=== PATIENT | female | born 1935 | race Caucasian/White ===

== ENCOUNTER 2016-10-01 09:56 | Emergency (ER) | payer MEDICARE, BC ==
[~2016-10-01] VITALS: Ht 157.5 cm; Wt 54.5 kg
[~2016-10-01 09:56] MED LIST: ASPI-535 PO; GABA300C PO; HYDR200T5 PO; OMEPRAZOLE; PRED-253 PO; SERT50TA6 PO; [UNRECOGNIZED DRUG - OTHER]
[2016-10-01 10:09] VITALS: Ht 157.5 cm; Wt 54.5 kg
[2016-10-01] MEDS ORDERED: ONDANSETRON (ODT) 4 MG TAB ODT STA (10:22)
--- NOTE | 2016-10-01 10:28 | ERD ---
ER Documentation Chief Complaint Date/Time DATE: 10/01/16 TIME: 10:24 Chief Complaint RT SHOULDER/ARM/HIP PAIN S/P GROUND LEVEL MECHANICAL FALL HPI Patient is an 80-year-old female who states that she has imbalance and dizziness at baseline. She says she was talking to to people and she turned to the left to talk to someone to turn to the right and became off balance and fell. She says she landed on her right side predominantly on her right elbow. She is complaining of right elbow and right shoulder pain as well as some right hip pain. She was able to stand up however on her own. She is right-hand dominant. She denies any head trauma, loss of consciousness, neck pain, back pain, chest pain, shortness of breath, abdominal pain, nausea, or vomiting. ROS All systems reviewed and are negative except as per history of present illness. Medications Home Meds Reported Medications Cholecalciferol* (Vitamin D3*) 1,000 Unit Tablet, 1000 UNIT PO DAILY, TAB 10/01/16 Ascorbic Acid* (Vitamin C*) 500 Mg Capsule.sa, 500 MG PO DAILY, CAP 10/01/16 Timolol Maleate* (Timolol Maleate* Ophth) Unknown Strength Opht, 1 DROP BOTH EYES BID, #1 EA 10/01/16 Bimatoprost* (Lumigan*) 0.01%-2.5 Ml Opht Drops, 1 DROP BOTH EYES HS, EA 10/01/16 Trazodone Hcl* (Trazodone Hcl*) 50 Mg Tablet, 50 MG PO QHS, #30 TAB 10/01/16 Multivit-Min/FA/Lutein/Zeaxant (Icaps Mv Tablet) 1 Each Tablet.dr, 1 EACH PO DAILY 10/01/16 Hydrochlorothiazide* (Hydrochlorothiazide*) 12.5 Mg Tablet, 12.5 MG PO DAILY, # 30 TAB 10/01/16 Prednisone* (Prednisone*) 1 Mg Tablet, 4 MG PO DAILY, TAB 10/01/16 Gabapentin* (Neurontin*) 300 Mg Capsule, 300 MG PO Q6 11/07/11 Discontinued Reported Medications Sertraline Hcl* (Sertraline Hcl*) 50 Mg Tablet, 50 MG PO DAILY 11/07/11 [Prilosec Delay Relea] 20.6 MG No Conflict Check, BID 11/07/11 Aspirin Ec (Aspir 81) 81 Mg Tablet.dr, 81 MG PO DAILY 11/07/11 [Hetz] 12.5 MG No Conflict Check, DAILY 11/07/11 Hydroxychloroquine Sulfate* (Plaquenil*) 200 Mg Tab, 200 MG PO BID 11/07/11 Prednisone (Prednisone) 5 Mg Tablet, 5 MG PO DAILY 11/07/11 Allergies Allergies: Coded Allergies: Sulfa (Sulfonamide Antibiotics) (Verified Allergy, Intermediate, 10/01/16) PMhx/Soc History of Surgery: Yes (BACK SX, RT EYE SURGICAL REPAIR OF INJURY) Anesthesia Reaction: No Hx Neurological Disorder: No Hx Respiratory Disorders: No Hx Cardiac Disorders: No Hx Psychiatric Problems: No Hx Miscellaneous Medical Probl: Yes (ARTHRITIS) Hx Alcohol Use: No Hx Substance Use: No Hx Tobacco Use: No Smoking Status: Never smoker FmHx Differential includes but is not limited to fall secondary to chronic dizziness , skin tear, fracture, sprain, dislocation Laceration Repair by me: Anesthesia: 1% lidocaine locally Location: Right lateral elbow Tendon/Joint/Nerves: No injury The skin that was torn over the right lateral elbow was able to be grossly reapproximated. I used Dermabond to close the wound. Complexity: No subcutaneous sutures/mucosal repair/ edge excision Patient's bleeding was easily controlled in the department and there is no indication of anemia. No evidence of compartment syndrome, neurologic injury, vascular injury, open joint, tendon laceration, or foreign body. Patient is appropriate for outpatient follow up. 48 hour wound check. Scar minimization instructions given. Family History: No diabetes Physical Exam Vitals Vital Signs Date Time Temp Pulse Resp B/P Pulse Ox O2 Delivery O2 Flow Rate FiO2 10/01/16 10:09 98.5 93 16 152/112 95 Physical Exam Const: [] Well-developed well-nourished female sitting on the bed calmly Head: Atraumatic normocephalic Eyes: Normal Conjunctiva ENT: Normal External Ears, Nose and Mouth. Neck: Full range of motion..~ No meningismus. Resp: Clear to auscultation bilaterally Cardio: Regular rate and rhythm, no murmurs Abd: Soft, non tender, non distended. Normal bowel sounds Skin: Skin tear noted over the right lateral portion of the elbow Back: No midline or flank tenderness Ext: Patient reports tenderness to palpation in the right elbow with some decreased range of motion but no obvious deformity or edema noted, patient reports tenderness to palpation in the right shoulder however she has full range of motion with no obvious deformity or edema noted, patient reports mild tenderness to palpation in the right hip without any obvious deformity and she has full range of motion Neur: Awake and alert, oriented 3, GCS of 15 Psych: Normal Mood and Affect Results 24 hrs Current Medications Medications (Trade) Dose Ordered Sig/Alessandro Route PRN Reason Start Time Stop Time Status Last Admin Dose Admin Diphtheria/ Tetanus/Acell Pertussis (Adacel) 0.5 ml ONCE ONCE IM* 10/01/16 10:30 10/01/16 10:31 DC 10/01/16 10:36 Acetaminophen/ Hydrocodone Bitart ([place] (7.5-325)) 2 tab ONCE ONCE PO 10/01/16 10:30 10/01/16 10:31 DC 10/01/16 10:43 Ondansetron HCl (Zofran Odt) 4 mg ONCE STAT ODT 10/01/16 10:22 10/01/16 10:24 DC 10/01/16 10:34 Procedures/MDM Differential includes but is not limited to fall, abrasion, skin tear, sprain, strain, fracture, dislocation X-ray of the right shoulder reveals arthritis without any fracture dislocation X-ray of the right elbow does not reveal any acute fracture dislocation per the radiologist X-ray the right hip does not reveal any acute fracture dislocation per the radiologist 1205: Patient is feeling better. I placed her an arm sling. She appears stable for discharge home. She may follow-up with an orthopedic doctor as an outpatient. She is also been given information on wound care and skin tears. Departure Diagnosis: Primary Impression: Fall Encounter type: initial encounter Qualified Code: W19.XXXA - Fall, initial encounter Additional Impressions: Skin tear of elbow without complication Encounter type: initial encounter Laterality: right Qualified Code: S51.011A - Skin tear of elbow without complication, right, initial encounter Sprain of elbow, right Encounter type: initial encounter Qualified Code: S53.401A - Sprain of elbow , right, initial encounter Strain of shoulder, right Encounter type: initial encounter Qualified Code: S46.911A - Strain of shoulder, right, initial encounter Hip pain, acute Laterality: right Qualified Code: M25.551 - Hip pain, acute, right Dizziness Condition: Good Patient Instructions: Caring for Your Wound, Skin Avulsion, Sprain Elbow, TreatingStrains and Sprains [facility] Additional Instructions: The Dermabond should pill up over the next 3-5 days. After that resume normal wound care with soap and water keeping it clean and dry. Wear the arm sling for comfort. You may be sore for several days but should improve over the next 3-5 days. Return to the emergency department or follow-up with her primary care physician if not improving. I have also given you information in orthopedic clinic that you may follow-up with. LOWELL BAUTISTA Oct 01, 2016 10:28
[2016-10-01] MEDS ORDERED: DIPHTH/TET/ACEL PERTUSS (ADULT) 0.5 ML VIAL IM* ONE (10:30)
[2016-10-01] MEDS ORDERED: HYDROCODONE/APAP (7.5/325) TAB PO ONE (10:30)
[2016-10-01] MEDS ORDERED: HYDR12.58 PO (10:58)
[2016-10-01] MEDS ORDERED: PRED1TAB2 PO (10:58)
[2016-10-01] MEDS ORDERED: MULT1TAB15 PO (10:59)
[2016-10-01] MEDS ORDERED: BIMA2.5D BOTH EYES (10:59)
[2016-10-01] MEDS ORDERED: TRAZ50TA18 PO (10:59)
[2016-10-01] MEDS ORDERED: ASCO500C7 PO (11:03)
[2016-10-01] MEDS ORDERED: CHOL100062 PO (11:03)
[2016-10-01] MEDS ORDERED: TIMO15DR15 BOTH EYES (11:03)
--- NOTE | 2016-10-01 11:43 | RADRPT ---
PROCEDURE: Right hip series CLINICAL INDICATION: Right hip pain. Status post fall. TECHNIQUE: Two views of the right hip are submitted COMPARISON: None FINDINGS: The right hip appears aligned without evidence of fractures, dislocations or osteolytic lesions. Ac etabulum appears intact.. IMPRESSION: Normal RPTAT: VV .Otoniel Mcdonough MD, MD Date Time Electronically viewed and signed by .Otoniel Mcdonough MD, MD on 10/01/2016 11:43 .L/
--- NOTE | 2016-10-01 11:44 | RADRPT ---
PROCEDURE: XR Elbow. CLINICAL INDICATION: Right elbow pain TECHNIQUE: Three views of the right elbow are available for review COMPARISON: None available FINDINGS: The osseous structures, articular spaces, and surrounding soft tissues of the right elbow are intact . No acute fracture or dislocation is seen. No radiopaque foreign body is identified. No fat pad s ail sign is identified to indicate a hemarthrosis. IMPRESSION: 1. Unremarkable right elbow x-ray series. RPTAT: VV .Otoniel Mcdonough MD, MD Date Time Electronically viewed and signed by .Otoniel Mcdonough MD, on 10/01/2016 11:44 .L/
--- NOTE | 2016-10-01 11:45 | RADRPT ---
PROCEDURE: XR Shoulder. CLINICAL INDICATION: Right shoulder pain . TECHNIQUE: Three views of the right shoulder are available for review. COMPARISON: None available FINDINGS: The osseous structures, articular spaces, and surrounding soft tissues of the right shoulder are int act. No acute fracture or dislocation is seen. The glenohumeral joint is unremarkable. There is de generative narrowing of the acromioclavicular joint.. The visualized portions of the right clavicle and upper right rib cage are equally unremarkable. IMPRESSION: 1. Mild osteoarthritis of the acromioclavicular joint. 2. No acute fracture or dislocation is seen. RPTAT: VV .Otoniel Mcdonough MD, MD Date Time Electronically viewed and signed by .Otoniel Mcdonough MD, MD on 10/01/2016 11:45 .L/
[2016-10-01] MEDS ORDERED: ETOD300C26 PO (12:10)
[2016-10-01] MEDS ORDERED: HYDR-906 PO ×2 (12:10→12:15)
[2016-10-01] MEDS ORDERED: ONDA4TAB8 PO ×2 (12:10→12:16)
[2016-10-01 12:22] VITALS: BP 151/73; PULSE 65; RESP 16
[2016-10-01 12:50] VITALS: TEMP 98.2
== END 2016-10-01 12:52 | disposition home or self-care (01) ==
LOC: E/R 09:56
DX: S51.011A Laceration without foreign body of right elbow, initial encounter (principal); S53.402A Unspecified sprain of left elbow, initial encounter; S46.911A Strain of unspecified muscle, fascia and tendon at shoulder and upper arm level, right arm, initial encounter; S79.911A Unspecified injury of right hip, initial encounter; R42 Dizziness and giddiness; W18.39XA Other fall on same level, initial encounter; Y92.9 Unspecified place or not applicable; Z23 Encounter for immunization; Z79.82 Long term (current) use of aspirin
CPT/HCPCS: 73510; 90471; 90715

== ENCOUNTER 2017-05-15 18:16 | Inpatient (IN) | payer MEDICARE, BC ==
[~2017-05-15] VITALS: Ht 152.4 cm; Wt 60.0 kg
[~2017-05-15 18:16] MED LIST changes: +ASCO500C7 PO; -ASPI-535 PO; +BIMA2.5D BOTH EYES; +CHOL100062 PO; +ETOD300C29 PO; +HYDR-906 PO; +HYDR12.58 PO; -HYDR200T5 PO; +MULT1TAB16 PO; -OMEPRAZOLE; +ONDA4TAB8 PO; -PRED-253 PO; +PRED1TAB2 PO; -SERT50TA6 PO; +TIMO15DR15 BOTH EYES; +TRAZ50TA18 PO; -[UNRECOGNIZED DRUG - OTHER]
--- NOTE | 2017-05-15 18:34 | ERD ---
ER Documentation Chief Complaint Chief Complaint BIBA FOR RIGHT WRIST PAIN,S/P TRIPPED AND FALL.NO KO.NO TRAUMA HPI 81-year-old woman brought in by EMS after mechanical fall while walking up the stairs, she states she lost balance and then fell backwards and landed on her right side injuring her right wrist and elbow. She denied head or neck neck injury, no loss of consciousness, no complaints of chest pain or shortness of breath. Patient was placed in a cardboard splint and transported here without further complaints. ROS All systems reviewed and are negative except as per history of present illness. Medications Home Meds Reported Medications [Calcium] No Conflict Check, 1 TAB PO DAILY 05/15/17 Cholecalciferol* (Vitamin D3*) 1,000 Unit Tablet, 1000 UNIT PO DAILY, TAB 10/01/16 Ascorbic Acid* (Vitamin C*) 500 Mg Capsule.sa, 500 MG PO DAILY, CAP 10/01/16 Timolol Maleate* (Timolol Maleate* Ophth) Unknown Strength Opht, 1 DROP BOTH EYES BID, #1 EA 10/01/16 Bimatoprost* (Lumigan*) 0.01%-2.5 Ml Opht Drops, 1 DROP BOTH EYES HS, EA 10/01/16 Trazodone Hcl* (Trazodone Hcl*) 50 Mg Tablet, 50 MG PO QHS, #30 TAB 10/01/16 Multivit-Min/FA/Lutein/Zeaxant (Icaps Mv Tablet) 1 Each Tablet.dr, 1 EACH PO DAILY 10/01/16 Prednisone* (Prednisone*) 1 Mg Tablet, 2 MG PO BID, TAB 10/01/16 Gabapentin* (Neurontin*) 300 Mg Capsule, 600 MG PO BID 11/07/11 Discontinued Reported Medications Hydrochlorothiazide* (Hydrochlorothiazide*) 12.5 Mg Tablet, 12.5 MG PO DAILY, # 30 TAB 10/01/16 Discontinued Scripts Ondansetron Hcl* (Zofran*) 4 Mg Tablet, 4 MG PO Q8H Y for NAUSEA AND/OR VOMITING , #20 TAB 0 Refills Prov:LOWELL BAUTISTA 10/01/16 Hydrocodone/Acetaminophen (Tamiment 5-325 Tablet) 1 Each Tablet, 1 TAB PO Q6H Y for PAIN, #20 TAB 0 Refills Prov:LOWELL BAUTISTA 3/21/17 Ondansetron Hcl* (Zofran*) 4 Mg Tablet, 4 MG PO Q8H Y for NAUSEA AND/OR VOMITING , #20 TAB 0 Refills Prov:LOWELL BAUTISTA 10/01/16 Hydrocodone/Acetaminophen (Tamiment 5-325 Tablet) 1 Each Tablet, 1 TAB PO Q6H Y for PAIN, #20 TAB 0 Refills Prov:LOWELL BAUTISTA 10/01/16 Etodolac (Etodolac) 300 Mg Capsule, 300 MG PO Q8 Y for PAIN, #30 CAP 0 Refills Prov:LOWELL BAUTISTA 10/01/16 Allergies Allergies: Coded Allergies: Sulfa (Sulfonamide Antibiotics) (Verified Allergy, Intermediate, 05/15/17) PMhx/Soc Rheumatic fever in childhood, polymyalgia rheumatica, osteoporosis, macular degeneration, and 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 History of Surgery: Yes (BACK SX, RT EYE SURGICAL REPAIR OF INJURY) Anesthesia Reaction: No Hx Neurological Disorder: No Hx Respiratory Disorders: No Hx Cardiac Disorders: No Hx Psychiatric Problems: No Hx Miscellaneous Medical Probl: Yes (ARTHRITIS) Hx Alcohol Use: No Hx Substance Use: No Hx Tobacco Use: No Physical Exam Vitals Vital Signs Date Time Temp Pulse Resp B/P Pulse Ox O2 Delivery O2 Flow Rate FiO2 05/15/17 21:00 76 16 138/66 100 05/15/17 20:00 82 16 124/89 95 05/15/17 19:00 120 22 125/90 98 05/15/17 18:25 97.7 86 18 117/64 98 Physical Exam GENERAL: Well-developed, well-nourished, well-hydrated, in no apparent distress , looks nontoxic in appearance HEENT: Moist mucous membranes, pink conjunctiva, no cervical spine tenderness or step-off deformities, soft tissue contusion to the right forehead NEURO: Alert and oriented 3, cranial nerves II through XII intact bilaterally, pupils equal round reactive to light, no focal deficits or facial asymmetry, sensation intact distally Strength 5/5 in upper and lower extremities bilaterally CARDIAC: Regular rate and rhythm, no murmurs rubs or gallops LUNGS: Clear bilaterally no wheezing crackles or stridor ABDOMEN: Soft nontender, no guarding, no rigidity, no rebound, no psoas sign no obturator sign. Normoactive bowel sounds SKIN: Warm and dry to touch, soft tissue hematoma to the anterior aspect of the right distal forearm, circular measuring about 4 cm in size, puncture wound to the ulnar lateral aspect of the right wrist consistent with open fracture. EXTREMITIES: Severe bony deformity at the right distal wrist, distal pulses intact and equal bilaterally PSYCH: Normal affect without agitation or irritability Result Diagram: 05/15/17 1857 05/15/171944 Results 24 hrs Laboratory Tests Test 05/15/17 18:57 05/15/17 19:45 White Blood Count 9.510^3/ul Red Blood Count 3.6210^6/ul Hemoglobin 11.3g/dl Hematocrit 35.2% Mean Corpuscular Volume 97.2fl Mean Corpuscular Hemoglobin 31.2pg Mean Corpuscular Hemoglobin Concent 32.1g/dl Red Cell Distribution Width 13.7% Platelet Count 82897^3/UL Mean Platelet Volume 9.8fl Neutrophils % 83.2% Lymphocytes % 9.5% Monocytes % 5.4% Eosinophils % 1.2% Basophils % 0.3% Nucleated Red Blood Cells % 0.0/100WBC Neutrophils # 7.910^3/ul Lymphocytes # 0.910^3/ul Monocytes # 0.510^3/ul Eosinophils # 0.110^3/ul Basophils # 0.010^3/ul Nucleated Red Blood Cells # 0.010^3/ul Sodium Level 142mmol/L Potassium Level 3.4mmol/L Chloride Level 108mmol/L Carbon Dioxide Level 29mmol/L Anion Gap 8 Blood Urea Nitrogen 12mg/dl Creatinine 0.62mg/dl Glucose Level 87mg/dl Calcium Level 8.2mg/dl Total Bilirubin 0.1mg/dl Direct Bilirubin 0.00mg/dl Indirect Bilirubin 0.1mg/dl Aspartate Amino Transf (AST/SGOT) 27IU/L Alanine Aminotransferase (ALT/SGPT) 29IU/L Alkaline Phosphatase 48IU/L Troponin I 0.029ng/ml Total Protein 6.0g/dl Albumin 3.3g/dl Globulin 2.70g/dl Albumin/Globulin Ratio 1.22 Lipase 93U/L Current Medications Medications (Trade) Dose Ordered Sig/Alessandro Route PRN Reason Start Time Stop Time Status Last Admin Dose Admin Sodium Chloride (NS) 500 ml @ 500 mls/hr Q1H STAT IV 05/15/17 18:52 05/15/17 19:51 DC 05/15/17 19:12 Ketorolac Tromethamine (Toradol) 15 mg ONCE STAT IV 05/15/17 18:52 05/15/17 18:55 DC 05/15/17 19:12 Diphtheria/ Tetanus/Acell Pertussis (Adacel) 0.5 ml ONCE ONCE IM* 05/15/17 19:00 05/15/17 19:01 DC 05/15/17 19:13 Lidocaine 20 ml 20 ml ONCE ONCE SC 05/15/17 20:30 05/15/17 20:31 DC Propofol (Diprivan) 100 ml @ 0 mls/hr TITRATE ONCE IV 05/15/17 20:30 05/15/17 20:31 DC Fentanyl (Sublimaze) 50 mcg ONCE ONCE IV 05/15/17 20:30 05/15/17 20:31 DC Procedures/MDM IV line was established patient was placed on gliding pilot instructor rhythm strip revealed a sinus rhythm at about 90 bpm with upright P and T waves. Patient was afebrile EKG performed, read by me revealed a normal sinus rhythm at 93 bpm, normal axis , right bundle branch block with a QRS duration of 128 ms, no concerning ST elevations or depressions noted. I administered Toradol 50 mg IV, 500 cc normal saline IV 1, tetanus toxoid 0.5 mL IM 1. Patient also received ceftriaxone [address] scan of the brain was performed that was negative for acute bleed mass or shift. X-ray right elbow 3V Interpreted by me: Fat Pads: Normal Bones: No fracture Joints: No dislocation Foreign body: None X-ray right wrist 3V Interpreted by me: Scaphoid: Normal Bones: Transverse displaced right distal radius fracture, ulnar styloid fracture Joints: Carporadial dislocation Foreign body: None One AP view of the chest performed, read by me reveals no acute infiltrates, normal mediastinum, sharp costophrenic and cardiac borders, no air under the diaphragm. Otherwise unremarkable chest x-ray. X-ray right shoulder 3V Interpreted by me: Bones: No fracture Joints: No dislocation Foreign body: None X-ray Pelvis 1V Interpreted by me: Bones: No fracture Joints: No dislocation Foreign body: None Procedural Sedation: Pre-assessment performed. See preceding complete history and physical for details. Time out performed. See the written sedation documentation for details. Risk, benefits and alternatives were discussed with the patient. Patient agreed to this conscious sedation. ASA Class: 2 Mallampati Score: Class 2 Medication(s): Fentanyl and propofol Complications: No hypoxic or apneic events Recovered without incident. A minimum of 21 minutes of face to face time was performed including preparation, sedation and recovery time. Reduction by me: Anesthesia: Fentanyl Location: Right wrist Technique: Gentle traction and manipulation Results: [place] of normal anatomic positioning Neurovascularly intact post procedure. Splint Assessment: Neurovascularly intact post splint placement with good fit. Postreduction x-ray of the right wrist was performed, read by me there is better alignment of the right radius fracture, carporadial dislocation has been reduced. Manual reduction in the emergency department was limited because patient's skin is so friable. She also has an open fracture which will require surgical ORIF. I spoke to surgeon on-call Dr. Asher regarding the patient's ED workup and imaging studies, he recommended n.p.o. after midnight and medical clearance for surgical ORIF possibly tomorrow. CBC and electrolytes are normal, liver function tests normal, troponin negative. Patient admitted to [facility]. Departure Diagnosis: Primary Impression: Open wrist fracture Encounter type: initial encounter Laterality: right Qualified Code: S62.101B - Open fracture of right wrist, initial encounter Additional Impressions: Radius/ulna fracture Encounter type: initial encounter Fracture type: open Open fracture type: open type I or II Laterality: right Qualified Code: S52.91XB - Type I or II open fracture of right radius and ulna, initial encounter Scalp contusion Encounter type: initial encounter Qualified Code: S00.03XA - Contusion of scalp, initial encounter Skin abrasion Condition: ALLY Brown MD May 15, 2017 18:34
[2017-05-15] MEDS ORDERED: CALCIUM PO (18:44)
[2017-05-15] MEDS ORDERED: KETOROLAC 15 MG INJ IV STA (18:52)
[2017-05-15] MEDS ORDERED: SOD CHLORIDE 0.9% 500 ML IV STA (18:52)
[2017-05-15] MEDS ORDERED: DIPHTH/TET/ACEL PERTUSS (ADULT) 0.5 ML VIAL IM* ONE (19:00)
--- NOTE | 2017-05-15 20:22 | RADRPT ---
PROCEDURE: XR Chest. CLINICAL INDICATION: r/o fx TECHNIQUE: PA and Lateral views of the chest were obtained. COMPARISON: None. FINDINGS: The cardiomediastinal silhouette is within normal limits. Mild bibasilar subsegmental atelectasis is present. no focal consolidations, pleural effusions, or p neumothorax is seen. A chronic-appearing rib deformity is visualized in the right lower lateral chest wall. There are degenerative changes of the spine and shoulder joints. IMPRESSION: 1. Apparent deformity in the right lower lateral chest wall, likely chronic in nature. However, cor relation with point tenderness is suggested to exclude an acute process. If there is continued high suspicion for acute fracture, cross-sectional imaging may be obtained. RPTAT:AAJJ Physician Mane Date Time Electronically viewed and signed by Mariela Wilkinson Physician on 05/15/2017 20:22 QL/
--- NOTE | 2017-05-15 20:22 | RADRPT ---
PROCEDURE: XR Pelvis. CLINICAL INDICATION: Pelvic pain. Trauma TECHNIQUE: Single AP view of the pelvis was obtained. 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 No acute displaced fracture or dislocation is seen. Diffuse osteopenia is seen. The soft tissue structures are intact. IMPRESSION: No acute displaced fracture or dislocation. RPTAT: HPNM Physician tOto Date Time Electronically viewed and signed by Oscar Bond Physician on 05/15/2017 20:22 /
--- NOTE | 2017-05-15 20:22 | RADRPT ---
PROCEDURE: XR Pelvis. CLINICAL INDICATION: Pelvic pain. Trauma TECHNIQUE: Single AP view of the pelvis was obtained. 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 No acute displaced fracture or dislocation is seen. Diffuse osteopenia is seen. The soft tissue structures are intact. IMPRESSION: No acute displaced fracture or dislocation. RPTAT: HPNM Physician Otto Date Time Electronically viewed and signed by Oscar Bond Physician on 05/15/2017 20:22 /
--- NOTE | 2017-05-15 20:23 | RADRPT ---
PROCEDURE: XR Shoulder. CLINICAL INDICATION: Right shoulder pain. Trauma TECHNIQUE: 2 views of the right shoulder were obtained. COMPARISON: 10/01/2016 FINDINGS: No acute fracture or dislocation is seen. Mild osteoarthritis of the acromioclavicular joint is once again seen. The glenohumeral joint within normal limits. Diffuse osteopenia is seen. The soft tis hill structures are intact. The visualized portions of the right clavicle and chest appear unremarka ble. IMPRESSION: No acute fracture or dislocation. RPTAT: HPNM Physician Otto Date Time Electronically viewed and signed by Physician Otto on 05/15/2017 20:23 /
--- NOTE | 2017-05-15 20:25 | RADRPT ---
PROCEDURE: Right wrist series CLINICAL INDICATION: Right wrist pain. Trauma TECHNIQUE: AP, oblique, and lateral views of the right wrist were obtained. COMPARISON: None FINDINGS: A significant displaced fracture of the distal radius is seen with dorsal angulation. Soft tissue sw elling at the fracture site is seen with soft tissue air. Dislocation of the distal ulna is seen. N o other fracture is seen. The remaining joint spaces are preserved. IMPRESSION: 1. Significant displaced distal radial fracture with dorsal angulation. 2. Distal ulna dislocation. RPTAT: HPNM Physician Otto Date Time Electronically viewed and signed by Physician Otto on 05/15/2017 20:24 /
[2017-05-15] MEDS ORDERED: PROPOFOL 100 ML IV ONE (20:30)
[2017-05-15] MEDS ORDERED: FENTAnyl 50 MCG/ML VIAL IV ONE (20:30)
[2017-05-15] MEDS ORDERED: LIDOCAINE 1% (MDV) 20 ML INJ SC ONE (20:30)
[2017-05-15] MEDS ORDERED: CEFTRIAXONE 1 GM/50 ML (PMX) 50 ML IVPB ONE (21:30)
--- NOTE | 2017-05-15 21:35 | RADRPT ---
PROCEDURE: XR right elbow. CLINICAL INDICATION: Trauma due to a fall. Right elbow pain. TECHNIQUE: Three views. Frontal, lateral, and oblique. COMPARISON: 10/01/2016. FINDINGS: There is no fracture or dislocation. The soft tissues are normal. Articular surfaces are intact. There is no lytic or blastic lesion. There is no radiopaque foreign body. IMPRESSION: 1. Unremarkable images of the right elbow. 2. No change from 10/01/2016. RPTAT: QQ .Job Thomas MD, MD Date Time Electronically viewed and signed by .Job Thomas MD, MD on 05/15/2017 21:35 .R/
--- NOTE | 2017-05-15 21:57 | RADRPT ---
PROCEDURE: CT Brain without contrast. CLINICAL INDICATION: Headache. TECHNIQUE: A CT of the brain without contrast was performed utilizing axial sections from the skul l base through the vertex. The patient was scanned without intravenous contrast enhancement. Sagitta l and coronal reformatted images were obtained using the data from the axial images. Total exam DLP is 720.23 mGy-cm. CTDIvol is 43.68 mGy. One or more of the following dose reduction techniques we re used: Automated exposure control, adjustment of the mA and/or kV according to patient size, use o f iterative reconstruction technique. COMPARISON: None available FINDINGS: There is normal estrella-white matter differentiation. There is enlargement of the ventricles and subarachnoid spaces consistent with atrophy. There is no intracranial hemorrhage or space-occupying lesion. There is no skull fracture or lytic lesion. There is a right frontal scalp hematoma. IMPRESSION: 1. Atrophy. 2. No intracranial hemorrhage. 3. Right frontal scalp hematoma. 4. Otherwise normal noncontrast CT scan of the brain. RPTAT: QQ .Job Thomas MD, Date Time Electronically viewed and signed by .Job Thomas MD, on 05/15/2017 21:57 .R/
[2017-05-15] MEDS ORDERED: ONDANSETRON 4 MG INJ IV PRN (22:00)
[2017-05-15] MEDS ORDERED: NACL 0.9% 3 ML SYG IV SCH (22:00)
[2017-05-15 22:12] VITALS: PULSE 89
--- NOTE | 2017-05-15 22:28 | RADRPT ---
PROCEDURE: XR Right Wrist. CLINICAL INDICATION: Trauma. Right wrist pain. Fracture. Post reduction radiograph. TECHNIQUE: 3 views of the right wrist. Frontal, lateral, and oblique. COMPARISON: Prior study done earlier the same day. FINDINGS: As seen previously, there is a comminuted transverse fracture through the distal metaphysis of the r adius. There is posterior displacement measuring half the width of the shaft. There is no significan t angulation. There is a nondisplaced ulnar styloid fracture. There is diffuse soft tissue swelling. The fracture of the distal radius extends through the distal articular surface with approximately 1 mm step off at this site. There is no lytic or blastic lesion. There is no radiopaque foreign body. IMPRESSION: 1. Fractures of the distal radius and ulna with improved position and alignment when compared with the prior study done earlier the same day. RPTAT: QQ .Job Thomas MD, MD Date Time Electronically viewed and signed by .Job Thomas MD, on 05/15/2017 22:28 .R/
[2017-05-15 22:30] VITALS: Ht 152.4 cm; Wt 60.0 kg
[2017-05-15] MEDS: HYDROCODONE/APAP (5/325) TAB PO PRN (23:11)
[2017-05-15 23:50] VITALS: BP 128/78; RESP 20
[2017-05-15 23:51] VITALS: BP 128/78; RESP 20
[2017-05-16] VITALS (25 sets, daily range): BP systolic 87–149; BP diastolic 48–87; PULSE 70–88; RESP 13–22
[2017-05-16] MEDS: ACETAMINOPHEN 325 MG TAB PO PRN ×2 (02:44→10:18)
[2017-05-16] MEDS: HYDROCODONE/APAP (5/325) TAB PO PRN ×2 (05:45→11:47)
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
[2017-05-16] MEDS: CEFAZOLIN 1 GM/50 ML (PMX) 50 ML IVPB SCH ×4 (06:53→21:50)
[2017-05-16] MEDS ORDERED: EPHEDrine SULFATE 50 MG/5 ML SYG ONE (07:00)
[2017-05-16] MEDS ORDERED: ACETAMINOPHEN 1000 MG/100 ML IVPB ONE (07:00)
[2017-05-16] MEDS ORDERED: TIMOLOL MALEATE BOTH EYES SCH (09:30)
[2017-05-16] MEDS: GABAPENTIN 300 MG CAP PO SCH ×2 (10:16→21:51)
[2017-05-16] MEDS: TIMOLOL 0.5% 5 ML OPH BOTH EYES SCH ×2 (11:46→21:52)
[2017-05-16] MEDS ORDERED: HYDROCORTISONE 100 MG INJ IV ONE (14:00)
--- NOTE | 2017-05-16 14:29 | QN ---
Documentation Comment The patient's 12-lead EKG and 2D-echo was reviewed with the supervising physician. The patient is medically cleared for the surgery with mild-to- moderate risk for untoward medical complications provided her comorbidities including advanced age, essential hypertension, chronic steroid therapy. Given that the benefits of the orthopedic surgical intervention for her right distal radius and ulnar fracture would outweigh the risks form the procedure. Case discussed with Dr. Cunha. VIVIAN CASTILLO NP May 16, 2017 14:29
--- NOTE | 2017-05-16 15:15 | RADRPT ---
Echocardiogram Report Patient Name: CRISTIAN BENITEZ Gender: Female Date: 1935 Study Date: 16-May-2017 Layer Off: Jewel Cruz [facility] Location: [address]A Ref. Physician: JULIÁN MYERS Quality: Adequate Procedures: Transthoracic echocardiogram with complete 2D, M-Mode, and doppler examination. Indications: Abnormal EKG. Pre-op. 2D/M Mode Doppler Measurement Value Normal Ranges Measurement Value Normal Ranges LVIDd 2D 4.2 3.5 - 5.6 cm AV Peak Farzad 1.5 m/sec LVIDs 2D 2.6 2.1 - 4.1 cm AV Peak PG 9.0 mmHg FS 2D 37.6 % LVOT Peak Farzad 1.3 m/sec LVPWd 2D 1.0 0.6 - 1.1 cm LVOT Peak PG 7.0 mmHg IVSd 2D 1.4 0.6 - 1.1 cm MV E Peak Farzad 1.1 m/sec IVS/LVPW 2D 1.3 MV A Peak Farzad 0.9 m/sec EDV 2D 74.1 cm3 MV E/A 1.2 ESV 2D 18.0 cm3 MV Decel Time 183 msec LA Dimen 2D 3.9 2.3 - 4.0 cm MV E/A 1.2 TR Peak Farzad 2.4 m/sec TR Peak PG 23.0 mmHg RVSP 31.0 mmHg Findings Left Ventricle: Normal left ventricular systolic function. Normal left ventricular cavity size. Sigmoid septum. Ejection fraction is visually estimated at 6065 %. Abnormal Diastolic Function. Right Ventricle: Normal right ventricular size. Normal right ventricular systolic function. Left Atrium: The left atrium is normal in size. Right Atrium: The right atrium is normal in size. Mitral Valve: Mild mitral leaflet calcification. Mild mitral annular calcification. Trace mitral regurgitation. Aortic Valve: Normal appearance of the aortic valve. No significant aortic stenosis or insufficiency. Tricuspid Valve: Normal appearance of the tricuspid valve. Estimated peak PA systolic pressure 31 mmHg. There is mild tricuspid regurgitation. Pulmonic Valve: Pulmonic valve not well visualized. There is trace pulmonic regurgitation. Pericardium: Normal pericardium with no significant pericardial effusion. Aorta: Normal aortic root. IVC: Normal size with poor respiratory collapse consistent with elevated right atrial pressure. Conclusions 1.Normal left ventricular systolic function. Normal left ventricular cavity size. Sigmoid septum. Ejection fraction is visually estimated at 60-65 %. Abnormal Diastolic Function. 2.Mild mitral leaflet calcification. Mild mitral annular calcification. Trace mitral regurgitation. 3.Normal appearance of the tricuspid valve. Estimated peak PA systolic pressure 31 mmHg. There is mild tricuspid regurgitation. 4.Pulmonic valve not well visualized. There is trace pulmonic regurgitation. Electronically Signed By: Gui Lagunas 16-May-2017 15:14:24 -0700 Patient Name: CRISTIAN BENITEZ Study Date: 16-May-2017 [id number]
--- NOTE | 2017-05-16 15:15 | RADRPT ---
Echocardiogram Report Patient Name: CRISTIAN BENITEZ Gender: Female Date: 1935 Study Date: 16-May-2017 Carburetor Repairer: Jewel Cruz [facility] Location: [address] Ref. Physician: JULIÁN MYERS Quality: Adequate Procedures: Transthoracic echocardiogram with complete 2D, M-Mode, and doppler examination. Indications: Abnormal EKG. Pre-op. 2D/M Mode Doppler Measurement Value Normal Ranges Measurement Value Normal Ranges LVIDd 2D 4.2 3.5 - 5.6 cm AV Peak Farzad 1.5 m/sec LVIDs 2D 2.6 2.1 - 4.1 cm AV Peak PG 9.0 mmHg FS 2D 37.6 % LVOT Peak Farzad 1.3 m/sec LVPWd 2D 1.0 0.6 - 1.1 cm LVOT Peak PG 7.0 mmHg IVSd 2D 1.4 0.6 - 1.1 cm MV E Peak Farzad 1.1 m/sec IVS/LVPW 2D 1.3 MV A Peak Farzad 0.9 m/sec EDV 2D 74.1 cm3 MV E/A 1.2 ESV 2D 18.0 cm3 MV Decel Time 183 msec LA Dimen 2D 3.9 2.3 - 4.0 cm MV E/A 1.2 TR Peak Farzad 2.4 m/sec TR Peak PG 23.0 mmHg RVSP 31.0 mmHg Findings Left Ventricle: Normal left ventricular systolic function. Normal left ventricular cavity size. Sigmoid septum. Ejection fraction is visually estimated at 6065 %. Abnormal Diastolic Function. Right Ventricle: Normal right ventricular size. Normal right ventricular systolic function. Left Atrium: The left atrium is normal in size. Right Atrium: The right atrium is normal in size. Mitral Valve: Mild mitral leaflet calcification. Mild mitral annular calcification. Trace mitral regurgitation. Aortic Valve: Normal appearance of the aortic valve. No significant aortic stenosis or insufficiency. Tricuspid Valve: Normal appearance of the tricuspid valve. Estimated peak PA systolic pressure 31 mmHg. There is mild tricuspid regurgitation. Pulmonic Valve: Pulmonic valve not well visualized. There is trace pulmonic regurgitation. Pericardium: Normal pericardium with no significant pericardial effusion. Aorta: Normal aortic root. IVC: Normal size with poor respiratory collapse consistent with elevated right atrial pressure. Conclusions 1.Normal left ventricular systolic function. Normal left ventricular cavity size. Sigmoid septum. Ejection fraction is visually estimated at 60-65 %. Abnormal Diastolic Function. 2.Mild mitral leaflet calcification. Mild mitral annular calcification. Trace mitral regurgitation. 3.Normal appearance of the tricuspid valve. Estimated peak PA systolic pressure 31 mmHg. There is mild tricuspid regurgitation. 4.Pulmonic valve not well visualized. There is trace pulmonic regurgitation. Electronically Signed By: Gui Lagunas 16-May-2017 15:14:24 -0700 Patient Name: CRISTIAN BENITEZ Study Date: 16-May-2017 [id number]
--- NOTE | 2017-05-16 15:15 | RADRPT ---
Echocardiogram Report Patient Name: CRISTIAN BENITEZ Gender: Female Date: 1935 Study Date: 16-May-2017 Icebox Worker: Jewel Cruz [facility] Location: [address] Ref. Physician: JULIÁN MYERS Quality: Adequate Procedures: Transthoracic echocardiogram with complete 2D, M-Mode, and doppler examination. Indications: Abnormal EKG. Pre-op. 2D/M Mode Doppler Measurement Value Normal Ranges Measurement Value Normal Ranges LVIDd 2D 4.2 3.5 - 5.6 cm AV Peak Farzad 1.5 m/sec LVIDs 2D 2.6 2.1 - 4.1 cm AV Peak PG 9.0 mmHg FS 2D 37.6 % LVOT Peak Farzad 1.3 m/sec LVPWd 2D 1.0 0.6 - 1.1 cm LVOT Peak PG 7.0 mmHg IVSd 2D 1.4 0.6 - 1.1 cm MV E Peak Farzad 1.1 m/sec IVS/LVPW 2D 1.3 MV A Peak Farzad 0.9 m/sec EDV 2D 74.1 cm3 MV E/A 1.2 ESV 2D 18.0 cm3 MV Decel Time 183 msec LA Dimen 2D 3.9 2.3 - 4.0 cm MV E/A 1.2 TR Peak Farzad 2.4 m/sec TR Peak PG 23.0 mmHg RVSP 31.0 mmHg Findings Left Ventricle: Normal left ventricular systolic function. Normal left ventricular cavity size. Sigmoid septum. Ejection fraction is visually estimated at 6065 %. Abnormal Diastolic Function. Right Ventricle: Normal right ventricular size. Normal right ventricular systolic function. Left Atrium: The left atrium is normal in size. Right Atrium: The right atrium is normal in size. Mitral Valve: Mild mitral leaflet calcification. Mild mitral annular calcification. Trace mitral regurgitation. Aortic Valve: Normal appearance of the aortic valve. No significant aortic stenosis or insufficiency. Tricuspid Valve: Normal appearance of the tricuspid valve. Estimated peak PA systolic pressure 31 mmHg. There is mild tricuspid regurgitation. Pulmonic Valve: Pulmonic valve not well visualized. There is trace pulmonic regurgitation. Pericardium: Normal pericardium with no significant pericardial effusion. Aorta: Normal aortic root. IVC: Normal size with poor respiratory collapse consistent with elevated right atrial pressure. Conclusions 1.Normal left ventricular systolic function. Normal left ventricular cavity size. Sigmoid septum. Ejection fraction is visually estimated at 60-65 %. Abnormal Diastolic Function. 2.Mild mitral leaflet calcification. Mild mitral annular calcification. Trace mitral regurgitation. 3.Normal appearance of the tricuspid valve. Estimated peak PA systolic pressure 31 mmHg. There is mild tricuspid regurgitation. 4.Pulmonic valve not well visualized. There is trace pulmonic regurgitation. Electronically Signed By: Gui Lagunas 16-May-2017 15:14:24 -0700 Patient Name: CRISTIAN BENITEZ Study Date: 16-May-2017 [id number]
--- NOTE | 2017-05-16 15:24 | HPN ---
Date/Time of Note Date/Time of Note DATE: 05/16/17 TIME: 15:23 Interval H&P Admission Note Pt. seen H&P reviewed: No system changes OZ PRUITT MD May 16, 2017 15:24
--- NOTE | 2017-05-16 15:59 | QN ---
Documentation Comment Patient at this time is without cardiac contraindication to proceeding to OR on current medications without further noninvasive evaluation at moderate risk. Post-operatively would check a 12 lead ECG and watch closely for signs/symptoms of CV complications including but not limited to the onset of chest pain, sob, uncontrolled cardiac arrythmias, or congestive heart failure. MICH WOODALL May 16, 2017 15:59
[2017-05-16] MEDS ORDERED: PROPOFOL 20 ML ONE (16:12)
[2017-05-16] MEDS ORDERED: FENTAnyl 50 MCG/ML VIAL ONE (16:12)
[2017-05-16] MEDS ORDERED: ROPIVACAINE 0.5 % 30 ML VIAL ONE (16:13)
[2017-05-16] MEDS ORDERED: POLYMYXIN/BACITRACIN 1L IRRIG ONE (16:20)
[2017-05-16] MEDS ORDERED: BACITRACIN 50000 UNITS INJ ONE (16:22)
[2017-05-16] MEDS ORDERED: PHENYLephrine (100 MCG/ML) 5ML SYG ONE (16:37)
[2017-05-16] MEDS ORDERED: ONDANSETRON 4 MG INJ ONE (17:10)
[2017-05-16] MEDS ORDERED: HYDROCORTISONE 100 MG INJ ONE (17:10)
[2017-05-16] MEDS ORDERED: METOCLOPRAMIDE 10 MG INJ ONE (17:10)
[2017-05-16] MEDS ORDERED: DEXAMETHASONE 4 MG/ML 1 ML INJ ONE (17:10)
[2017-05-16] MEDS ORDERED: morphine (1 MG/ML) 10ML SYRINGE IV PRN ×3 (18:00)
[2017-05-16] MEDS ORDERED: ONDANSETRON 4 MG INJ IV PRN (18:00)
[2017-05-16] MEDS ORDERED: EPHEDrine SULFATE 50 MG/5 ML SYG IV PRN (18:00)
[2017-05-16] MEDS ORDERED: FENTAnyl 50 MCG/ML VIAL IV PRN ×3 (18:00)
[2017-05-16] MEDS ORDERED: MEPERIDINE 25 MG INJ IV PRN (18:00)
[2017-05-16] MEDS ORDERED: DIPHENHYDRAMINE 50 MG INJ IV PRN (18:00)
[2017-05-16] MEDS ORDERED: HYDROmorphONE (0.2 MG/ML) 10ML SYG IV PRN ×2 (18:00)
[2017-05-16] MEDS ORDERED: LABETALOL HCL 20MG INJ IV PRN (18:00)
[2017-05-16] MEDS ORDERED: hydrALAzine 20 MG INJ IV PRN (18:00)
[2017-05-16] MEDS ORDERED: NACL 0.9% 3 ML SYG IV SCH (18:30)
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
--- NOTE | 2017-05-16 18:39 | SIPON ---
Date/Time of Note Date/Time of Note DATE: 05/16/17 TIME: 18:29 Operative Report Preoperative Diagnosis colle's fracture comminuted and displaced, technically open with out and in puncture wound,Rt, wrist. Postoperative Diagnosis same as preop Operation/Procedure Performed open irrigation debridment of the open wound. manipulative reduction and pinfixation. cast immobilization. Surgeon see signature line assistant press operator offset none Anesthesia: general Estimated blood loss: minimal Transfusion Required none Specimen none Grafts/Implants k wiresx2 Complications none OZ PRUITT MD May 16, 2017 18:39
[2017-05-16] MEDS ORDERED: morphine 2 MG INJ IV PRN (19:00)
[2017-05-16] MEDS ORDERED: predniSONE 1 MG TAB PO SCH (21:00)
[2017-05-16] MEDS ORDERED: BIMATOPROST 0.01% 2.5 ML BTL BOTH EYES SCH (21:00)
--- NOTE | 2017-05-16 21:43 | OPR ---
DATE OF OPERATION: 05/16/2017 Was severely comminuted. Full Colles fracture of the right wrist with this route and in the puncture wound. Severely comminuted and displaced. PREOPERATIVE DIAGNOSIS: Severely comminuted and displaced Colles' fracture of the right wrist with out and in puncture wound. POSTOPERATIVE DIAGNOSIS: Severely comminuted and displaced Colles' fracture of the right wrist with out and in puncture wound. OPERATION PERFORMED: 1. Open irrigation and debridement of the wound. 2. Manipulative reduction under general anesthesia with pin fixation. 3. Immobilization of the right wrist and forearm in a short arm cast. ANESTHESIA: General anesthesia combined with the regional block. SURGEON: Sam Asher MD PROCEDURE AND FINDINGS: Under anesthesia, the patient was placed in supine position upon the operating table. The preliminary manipulative reduction was carried out with manipulation, and the reduction was maintained by hanging the right upper extremity from IV pole using Macedonian finger trap. At this point, prep and drape was carried out. Inspection at this time revealed that there was a small puncture wound along with some skin abrasions. After confirming acceptable alignment, this alignment was stabilized with 2 percutaneous pin fixation. After confirming satisfactory alignment, and after irrigation and debridement of the wound, proper dressings were applied, and then the entire right forearm and wrist was immobilized in a short-arm cast. The patient tolerated the entire procedure very well and was sent to the recovery room in good condition. Dictated By: In Judi Asher MD /tato/jun /Document#: [id number]
[2017-05-16] MEDS: HYDROCORTISONE 100 MG INJ IV SCH (21:51)
[2017-05-16] MEDS: traZODone 50 MG TAB PO SCH (21:51)
[2017-05-16] MEDS: LATANOPROST 0.005% 2.5 ML OPH BOTH EYES SCH (21:51)
[2017-05-16] MEDS ORDERED: HYDROCORTISONE 100 MG INJ IV SCH (22:00)
--- NOTE | 2017-05-16 23:19 | RADRPT ---
PROCEDURE: XR Wrist. CLINICAL INDICATION: Postoperative examination.. TECHNIQUE: 2 views of the right wrist. COMPARISON: 05/15/2017. FINDINGS: Cast material obscures fine osseous details. The patient is status post percutaneous pin fixation of a distal radial fracture. Osseous alignment is not significantly changed since the prior examinatio n. There is also an ulnar styloid fracture. IMPRESSION: 1. Status post pin fixation of a distal radial fracture. RPTAT: HTAR .Basilio York MD, MD Date Time Electronically viewed and signed by .Basilio York MD, on 05/16/2017 23:19 .R/
--- NOTE | 2017-05-16 23:21 | RADRPT ---
PROCEDURE: Intraoperative fluoroscopy CLINICAL INDICATION: Fracture. TECHNIQUE: 8 fluoroscopic images of the right wrist were obtained by the operating surgeon. Total fluoroscopic time: 67.4 seconds COMPARISON: 05/15/2017. FINDINGS: The images demonstrate pin fixation of a distal radial fracture. An ulnar styloid fracture is also n oted. IMPRESSION: 1. Status post pin fixation of a distal radial fracture. RPTAT: HTAR .Basilio York MD, MD Date Time Electronically viewed and signed by .Basilio York MD, on 05/16/2017 23:20 .R/
[2017-05-17] VITALS (12 sets, daily range): BP systolic 110–143; BP diastolic 53–77; PULSE 72–91; RESP 17–18
[2017-05-17] MEDS: CEFAZOLIN 1 GM/50 ML (PMX) 50 ML IVPB SCH ×4 (01:19→14:01)
--- NOTE | 2017-05-17 05:19 | CONS ---
DATE OF ADMISSION: 05/15/2017 DATE OF CONSULTATION: 05/16/2017 CARDIOLOGY CONSULTATION REASON FOR CONSULTATION: Preoperative evaluation. REQUESTING PHYSICIAN: Dr. Zhu from the hospitalist service. HISTORY OF PRESENT ILLNESS: Ms. Agarwal is an 81-year-old female with history of hypertension, macu lar degeneration, hiatal hernia, and prior mechanical falls who states that she was playing with her new puppy and subsequently suffered a mechanical fall. The patient denied a prodrome of chest pain , shortness of breath, dizziness; states she kind of lost her spatial orientation due to loss of vis ion. The patient had subsequently landed on her right side with subsequent pain in her arm and head . Upon arrival in the emergency department, temperature 97.7, blood pressure 117/64, pulse 86, resp iratory rate 18, saturating 98%. The patient's labs revealed a sodium 142, potassium 3.4, creatinin e 0.6, BUN 12. White blood cell count 9.5, hemoglobin 11.3, platelet count 221. The patient underw ent a chest x-ray revealing apparent deformity in the right lower lateral chest wall; a wrist x-ray revealing significant displacement of the distal radial fracture with dorsal angulation; a shoulder x-ray revealing no acute fracture or dislocation; a pelvic x-ray revealing no acute displaced fractu re or dislocation; an elbow x-ray revealing unremarkable images of the right elbow, and a head CT th at revealed atrophy, no intracranial hemorrhage, right frontal scalp hematoma. The patient's electrocardiogram revealed sinus rhythm at a rate of 93 with frequent PACs, possible r uns of short SVT and right bundle branch block with secondary repolarization abnormalities and nonsp ecific ST and T-wave abnormalities diffusely. The patient was subsequently admitted to the floor. Since admit to floor, the patient continues to complain of pain in her wrist. Denies chest pain or shortness of breath. The patient has had some significant labile blood pressures, as low as 87 and as high as 125, and most recently pulses have been in the 60s and 70s with frequent PACs. PAST MEDICAL HISTORY: As above in HPI with the patient additionally stating that she has a history of polymyalgia rheumatica and rheumatoid arthritis and takes steroids at baseline. MEDICATIONS CURRENTLY IN HOSPITAL: 1. Vitamin D. 2. Solu-Cortef 50 mg IV q.8. 3. Trazodone 50 mg at bedtime. 4. Xalatan eyedrops. 5. Timolol eyedrops. 6. Gabapentin 600 mg b.i.d. 7. Ancef. 8. Tylenol. ALLERGIES: SULFA. SOCIAL HISTORY: No tobacco, ETOH, or illicit drug use. FAMILY HISTORY: No history of sudden cardiac or early CAD. REVIEW OF SYSTEMS: As above in HPI. CONSTITUTIONAL: No fevers, chills. PULMONARY: No current shortness of breath. CARDIOVASCULAR: No current chest pain. Positive PACs. GASTROINTESTINAL: No vomiting. GENITOURINARY: No hematuria. MUSCULOSKELETAL: Wrist fracture. PSYCHIATRIC: No documented psych history. PHYSICAL EXAMINATION: VITAL SIGNS: Temperature of 97.6, blood pressure 110/53, pulse 69, respiratory rate 18, sat 97%. GENERAL: The patient is alert, awake and complaining of wrist pain. NECK: JVP approximately 8 to 9 cm water. CHEST: Fair movement throughout with mildly decreased breath sounds at bases bilaterally. HEART: Regular rate and rhythm. Normal S1, S2; I/ systolic murmur, frequent PACs. ABDOMEN: Positive bowel sounds, soft. EXTREMITIES: Right arm in sling 1+ pulses bilaterally. No lower extremity edema. HEAD: Additionally head with ecchymosis near the right eye. LABORATORY DATA: As above in HPI, with most recent from today, white count 8.5, hemoglobin 11.0, pl atelet count 225. Sodium 141, potassium 3.7, creatinine of 0.7, BUN of 14, AST 29, ALT 27. LDL 50, HDL 55. INR 0.98. IMAGING STUDIES: As above in HPI with a wrist x-ray from today revealing fracture of the distal rad ius and ulna with improved position and alignment when compared with prior study done earlier the . ECG: As above in HPI. No further electrocardiograms for my review at this time. A 2D echo interpreted by myself today reveals a preserved left ventricular ejection fraction of 60% to 65% with mild mitral and tricuspid regurgitation and left ventricular diastolic dysfunction. IMPRESSION: 1. Preoperative evaluation prior to the patient undergoing a wrist open reduction, internal fixatio n with normal EF by echo, negative troponins, intermediate clinical predictors, going for moderate-r isk surgery. Thus, at this time, the patient is without cardiac contraindication to proceeding to t he OR on current medications at moderate risk. 2. Abnormal electrocardiogram with right bundle branch block. 3. PACs, frequent, and question SVT. 4. Hypertension, labile. 5. Status post fall, mechanical by description. 6. Rheumatoid arthritis, on baseline steroids, now on stress dose steroids. 7. Polymyalgia rheumatica. 8. Macular degeneration. 9. Anemia. RECOMMENDATIONS: 1. At this time, would maintain patient on telemetry monitoring to follow rhythm and rate control c losely. 2. Would consider initiation of beta blockade, but will hold at this time given patient's somewhat labile and marginal blood pressures. 3. Check a TSH to be sure that subclinical hyperthyroidism is not contributing to the patient's matteo ts of PACs and possible short SVTs. 4. Would continue to check serial EKGs and if possible would send an additional troponin prior to s urgery to the patient has not had any recent coronary syndromes, although at this time the pat ient has no signs of acute coronary syndrome and is chest pain-free. 5. Would check a postop 12-lead EKG to assess for any postoperative changes and watch closely for s igns and symptoms of cardiovascular complications including but not limited to the onset of chest pa in, shortness of breath, congestive heart failure, uncontrolled cardiac arrhythmias. Dictated By: MICH LUZ/NIKO Conf#: [id number] DID#: [id number] CC: KANDY RIOS MD; JOSETTE PRUITT MD; Darrell ;*EndCC*
[2017-05-17] MEDS: HYDROCORTISONE 100 MG INJ IV SCH ×3 (05:59→22:01)
[2017-05-17] MEDS: HYDROCODONE/APAP (5/325) TAB PO PRN ×3 (07:42→20:42)
[2017-05-17] MEDS: GABAPENTIN 300 MG CAP PO SCH ×2 (08:46→20:41)
[2017-05-17] MEDS: CHOLECALCIFEROL 1,000 UNIT TAB PO SCH (08:46)
[2017-05-17] MEDS: TIMOLOL 0.5% 5 ML OPH BOTH EYES SCH ×2 (08:47→20:40)
--- NOTE | 2017-05-17 11:44 | PN ---
Date/Time of Note Date/Time of Note DATE: 05/17/17 TIME: 11:39 Assessment/Plan VTE Prophylaxis VTE Prophylaxis Intervention: SCD's (B/L SCDs) Lines/Catheters IV [facility] Urinary Cath still in place: No Assessment/Plan Chief Complaint/Hosp Course 1. Colles' fracture of the right wrist, severely comminuted and displaced. Status post open irrigation and debridement with manipulative reduction under general anesthesia with pin fixation along with immobilization of the right wrist and forearm in a short arm cast on 05/16/2017. Continue pain management. Continue physical therapy. 2. Polymyalgia rheumatica. The patient was on long-term steroids. Therefore, the patient was started on high-dose steroids prior to surgery to prevent any adrenal crisis. This will be tapered down. 3. Amblyopia of the right eye with history of macular degeneration. Continue eyedrops. Continue fall precautions. 4. Normocytic, normochromic anemia. Etiology unclear. Will obtain an iron panel. 5. History of essential hypertension with elevated blood pressure readings. Off antihypertensives. We will monitor the blood pressure readings closely. 6. Fluids, electrolytes, and nutrition. Regular diet. 7. DVT prophylaxis. As per orthopedic surgery. 8. Gastrointestinal prophylaxis. Histamine 2 receptor blockers because of underlying IV steroid use. 9. Plan. Continue pain control. Taper down steroids. Obtain an iron panel. Await further recommendations from orthopedic surgery. Case discussed with Dr. Cunha. Problems: Subjective 24 Hr Interval Summary Free Text/Dictation Right forearm pain well controlled. Exam/Review of Systems Vital Signs Vitals Vital Signs Date Time Temp Pulse Resp B/P Pulse Ox O2 Delivery O2 Flow Rate FiO2 05/17/17 08:37 76 05/17/17 07:45 97.8 17 143/70 96 05/16/17 20:30 Nasal Cannula 1.0 Intake and Output 05/16/17 05/16/17 05/17/17 15:00 23:00 07:00 Intake Total 553 ml 570 ml 120 ml Output Total 5 ml Balance 553 ml 565 ml 120 ml Exam General: Adequately build 81 year-old female sitting in a chair in no apparent distress. HEENT: Normocephalic. Ecchymosis on the supraorbital area., atraumatic. Eyes: Anicteric sclerae, conjunctivae clear. ENT: Nasal septum midline, oral mucosa moist. Neck supple, no JVD noticed. Respiratory: Bilaterally clear breath sounds. No use of accessory muscles of respiration. No adventitious breath sounds. Cardiovascular: S1, S2 heard. No murmurs or gallops. Abdomen: Soft, nontender, and nondistended. Bowel sounds positive in all 4 quadrants. Genitourinary: Deferred. Extremities: No cyanosis, no clubbing. Peripheral pulses palpable. Right forearm in a sling with cast. Good blood flow too the fingers on the right hand. Neurologic: Cranial nerves II through XII grossly intact. The patient is awake, alert, and oriented. Skin: Normal skin turgor. No skin rashes. Results Result Diagram: 05/17/17 0542 05/17/17 0542 Results 24 hrs Laboratory Tests Test 05/17/17 05:42 White Blood Count 9.6 Red Blood Count 3.24 L Hemoglobin 9.8 L Hematocrit 31.6 L Mean Corpuscular Volume 97.5 Mean Corpuscular Hemoglobin 30.2 Mean Corpuscular Hemoglobin Concent 31.0 L Red Cell Distribution Width 14.0 Platelet Count 200 Mean Platelet Volume 10.7 H Neutrophils % Segmented Neutrophils % (Manual) 95 H Band Neutrophils % (Manual) 3 Lymphocytes % Monocytes % Monocytes % (Manual) 2 Eosinophils % Basophils % Nucleated Red Blood Cells % 0.0 Neutrophils # Neutrophils # (Manual) 9.1 H Band Neutrophils # 0.2 Lymphocytes # Monocytes # Absolute Monocytes (Manual) 0.1 L Eosinophils # Basophils # Nucleated Red Blood Cells # Platelet Estimate NORMAL Anisocytosis 1+ Ovalocytes 1+ Sodium Level 141 Potassium Level 3.9 Chloride Level 109 Carbon Dioxide Level 27 Anion Gap 9 Blood Urea Nitrogen 10 Creatinine 0.63 Glucose Level 119 # Calcium Level 7.1 L Phosphorus Level 3.8 Magnesium Level 1.8 Medications Medications Current Medications Ondansetron HCl (Zofran Inj) 4 mg Q6H PRN IV NAUSEA AND/OR VOMITING; Start 05/15/17 at 22:00 Acetaminophen (Tylenol Tab) 650 mg Q6H PRN PO PAIN LEVEL 1-3 OR FEVER Last administered on 05/16/17 10:18; Admin Dose 650 MG; Start 05/15/17 at 22:00 Acetaminophen/ Hydrocodone Bitart 1 tab 1 tab Q6H PRN PO PAIN LEVEL 7-10 Last administered on 05/17/17 07:42; Admin Dose 1 TAB; Start 05/15/17 at 22:30 Cefazolin Sodium (Ancef 1 Gm/50 ml (Pmx)) 50 ml @ 100 mls/hr Q8 IVPB Last administered on 05/17/17 05:59; Admin Dose 100 MLS/HR; Start 05/16/17 at 06:00 ; Stop 05/17/17 at 15:00 Gabapentin (Neurontin) 600 mg BID PO Last administered on 05/17/17 08:46; Admin Dose 600 MG; Start 05/16/17 at 10:00 Trazodone HCl (Desyrel) 50 mg QHS PO Last administered on 05/16/17 21:51; Admin Dose 50 MG; Start 05/16/17 at 21:00 Latanoprost (Xalatan) 1 drop QHS BOTH EYES Last administered on 05/16/17 21:51 ; Admin Dose 1 DROP; Start 05/16/17 at 21:00 Timolol Maleate (Timoptic 0.5%) 1 drop BID BOTH EYES Last administered on 08:47; Admin Dose 1 DROP; Start 05/16/17 at 12:00 Cholecalciferol (Vitamin D) 1,000 unit DAILY PO Last administered on 05/17/17 08:46; Admin Dose 1,000 UNIT; Start 05/17/17 at 09:00 Hydrocortisone (Solu-Cortef) 50 mg Q8 IV Last administered on 05/17/17 05:59; Admin Dose 50 MG; Start 05/16/17 at 22:00 Morphine Sulfate (morphine) 2 mg Q2H PRN IV pain; Start 05/16/17 at 19:00 Acetaminophen/ Hydrocodone Bitart ([place] (5/325)) 1 tab Q3H PRN PO PAIN; Start 05/16/17 at 19:00 VIVIAN CASTILLO NP May 17, 2017 11:44
[2017-05-17] MEDS: FAMOTIDINE 20 MG TAB PO SCH (12:31)
--- NOTE | 2017-05-17 15:55 | CONS ---
Date/Time of Note Date/Time of Note DATE: 05/17/17 TIME: 15:52 Assessment/Plan Assessment/Plan Additional Assessment/Plan Colles' fracture of the right wrist, Status post open irrigation and debridement with reduction Status post fall, mechanical Rheumatoid arthritis Polymyalgia rheumatica. Macular degeneration. Anemia. Clinically and hemodynamically stable Continue Prophylactic antibiotics Pain Management as scheduled PT as tolerated Consultation Date/Type/Reason Admit Date/Time May 15, 2017 at 21:21 Social History Alcohol Use: none Smoking Status: Never smoker Drug Use: none Exam/Review of Systems Vital Signs Vitals Vital Signs Date Time Temp Pulse Resp B/P Pulse Ox O2 Delivery O2 Flow Rate FiO2 05/17/17 15:34 98.6 73 17 139/63 98 05/16/17 20:30 Nasal Cannula 1.0 Intake and Output 05/16/17 05/16/17 05/17/17 15:00 23:00 07:00 Intake Total 553 ml 570 ml 120 ml Output Total 5 ml Balance 553 ml 565 ml 120 ml Exam Constitutional: alert Head: atraumatic, normocephalic Neck: non-tender, supple Respiratory: clear to auscultation Cardiovascular: regular rate and rhythm Gastrointestinal: nl liver, spleen, non-tender, soft Extremities: normal pulses Results Result Diagram: 05/17/17 0542 05/17/17 0542 Results 24 hrs Laboratory Tests Test 05/17/17 05:42 05/17/17 14:49 White Blood Count 9.6 Red Blood Count 3.24 L Hemoglobin 9.8 L Hematocrit 31.6 L Mean Corpuscular Volume 97.5 Mean Corpuscular Hemoglobin 30.2 Mean Corpuscular Hemoglobin Concent 31.0 L Red Cell Distribution Width 14.0 Platelet Count 200 Mean Platelet Volume 10.7 H Neutrophils % Segmented Neutrophils % (Manual) 95 H Band Neutrophils % (Manual) 3 Lymphocytes % Monocytes % Monocytes % (Manual) 2 Eosinophils % Basophils % Nucleated Red Blood Cells % 0.0 Neutrophils # Neutrophils # (Manual) 9.1 H Band Neutrophils # 0.2 Lymphocytes # Monocytes # Absolute Monocytes (Manual) 0.1 L Eosinophils # Basophils # Nucleated Red Blood Cells # Platelet Estimate NORMAL Anisocytosis 1+ Ovalocytes 1+ Sodium Level 141 Potassium Level 3.9 Chloride Level 109 Carbon Dioxide Level 27 Anion Gap 9 Blood Urea Nitrogen 10 Creatinine 0.63 Glucose Level 119 # Calcium Level 7.1 L Phosphorus Level 3.8 Magnesium Level 1.8 Iron Level 19 L Total Iron Binding Capacity 246 Percent Iron Saturation 8 L Medications Medications Current Medications Ondansetron HCl (Zofran Inj) 4 mg Q6H PRN IV NAUSEA AND/OR VOMITING; Start 05/15/17 at 22:00 Acetaminophen (Tylenol Tab) 650 mg Q6H PRN PO PAIN LEVEL 1-3 OR FEVER Last administered on 05/16/17 10:18; Admin Dose 650 MG; Start 05/15/17 at 22:00 Acetaminophen/ Hydrocodone Bitart ([place] (5/325)) 1 tab Q6H PRN PO PAIN LEVEL 7 -10 Last administered on 05/17/17 07:42; Admin Dose 1 TAB; Start 05/15/17 at 22 :30 Gabapentin (Neurontin) 600 mg BID PO Last administered on 05/17/17 08:46; Admin Dose 600 MG; Start 05/16/17 at 10:00 Trazodone HCl (Desyrel) 50 mg QHS PO Last administered on 05/16/17 21:51; Admin Dose 50 MG; Start 05/16/17 at 21:00 Latanoprost (Xalatan) 1 drop QHS BOTH EYES Last administered on 05/16/17 21:51 ; Admin Dose 1 DROP; Start 05/16/17 at 21:00 Timolol Maleate (Timoptic 0.5%) 1 drop BID BOTH EYES Last administered on 08:47; Admin Dose 1 DROP; Start 05/16/17 at 12:00 Cholecalciferol (Vitamin D) 1,000 unit DAILY PO Last administered on 05/17/17 08:46; Admin Dose 1,000 UNIT; Start 05/17/17 at 09:00 Hydrocortisone (Solu-Cortef) 50 mg Q8 IV Last administered on 05/17/17 13:56; Admin Dose 50 MG; Start 05/16/17 at 22:00; Stop 05/17/17 at 22:00 Morphine Sulfate (morphine) 2 mg Q2H PRN IV pain; Start 05/16/17 at 19:00 Acetaminophen/ Hydrocodone Bitart ([place] (5/325)) 1 tab Q3H PRN PO PAIN Last administered on 05/17/17 12:32; Admin Dose 1 TAB; Start 05/16/17 at 19:00 Famotidine (Pepcid) 20 mg DAILY PO Last administered on 05/17/17t 12:31; Admin Dose 20 MG; Start 05/17/17 at 12:00 Hydrocortisone (Solu-Cortef) 50 mg Q12 IV ; Start 05/18/17 at 09:00 TERRANCE ASHBY M.D. May 17, 2017 15:55
--- NOTE | 2017-05-17 19:03 | PN ---
DATE: 05/17/2017 SUBJECTIVE DATA: First postop. Fairly comfortable with the right upper extremity in a short arm cast. No evidence of neurovascular compromise. Postop x-ray shows a satisfactory alignment of the fracture along with the proper position of the pins. To be up with a cane on her left hand, if it is tolerated. Family members desires that she be in a correction facility for a brief period of time. Dictated By: In Judi Asher MD /tato/trent /Document#: [id number]
--- NOTE | 2017-05-17 19:03 | PN ---
DATE: 05/17/2017 SUBJECTIVE DATA: First postop. Fairly comfortable with the right upper extremity in a short arm cast. No evidence of neurovascular compromise. Postop x-ray shows a satisfactory alignment of the fracture along with the proper position of the pins. To be up with a cane on her left hand, if it is tolerated. Family members desires that she be in a jail facility for a brief period of time. Dictated By: In Judi Asher MD /tato/trent /Document#: [id number]
--- NOTE | 2017-05-17 19:03 | PN ---
DATE: 05/17/2017 SUBJECTIVE DATA: First postop. Fairly comfortable with the right upper extremity in a short arm cast. No evidence of neurovascular compromise. Postop x-ray shows a satisfactory alignment of the fracture along with the proper position of the pins. To be up with a cane on her left hand, if it is tolerated. Family members desires that she be in a [place] [facility] facility for a brief period of time. Dictated By: In Judi Asher MD /tato/trent /Document#: [id number]
--- NOTE | 2017-05-17 20:11 | CONS ---
DATE OF ADMISSION: 05/15/2017 DATE OF CONSULTATION: 05/16/2017 HISTORY OF PRESENT ILLNESS: The patient is an 81-year-old female, who was admitted on the May, when she was brought into the emergency room by EMS. According to available information, she was on the stairs when she lost her balance and fell landing on her right side. Her losing balance and fall may involve her dog. Denies any loss of consciousness or head injury. She is known to have hypertension and right bundle branch block including myalgia rheumatica. Following initial evaluation in the emergency room, manipulator reduction was carried out by the ER physician improving alignment. It was also described that there is a small puncture wound over the medial aspect of the right wrist around the ulnar styloid. It was felt that the injury was in local laceration. PHYSICAL EXAMINATION: My examination revealed an 81-year-old female, who was not in any acute distress. Her right upper extremity was immobilized in a short arm volar splint. There was no evidence of any acute neurovascular compromise. IMAGING: X-rays of the right wrist both prior to manipulated reduction and post miniplate reduction was reviewed. The x-ray was showing severely comminuted and markedly displaced fracture involving distal radius and ulnar styloid. The alignment was improved with miniplate reduction, however, there was some residual displacement and angulation. DIAGNOSTIC IMPRESSION: Severely comminuted and markedly displaced Colles fracture of the right wrist, status post manipulative reduction with some residual malalignment. TREATMENT PLAN: To surgery for further manipulative reduction and possible pin fixation. Dictated By: In Judi Asher MD /tato/jun /Document#: [id number]
[2017-05-17] MEDS: LATANOPROST 0.005% 2.5 ML OPH BOTH EYES SCH (20:40)
[2017-05-17] MEDS: traZODone 50 MG TAB PO SCH (20:41)
[2017-05-18] VITALS (14 sets, daily range): BP systolic 112–145; BP diastolic 53–98; PULSE 67–153; RESP 17–20
[2017-05-18] MEDS: TIMOLOL 0.5% 5 ML OPH BOTH EYES SCH ×2 (08:33→21:43)
[2017-05-18] MEDS: GABAPENTIN 300 MG CAP PO SCH ×2 (08:33→21:42)
[2017-05-18] MEDS: FAMOTIDINE 20 MG TAB PO SCH (08:33)
[2017-05-18] MEDS: HYDROCORTISONE 100 MG INJ IV SCH ×2 (08:33→21:43)
[2017-05-18] MEDS: CHOLECALCIFEROL 1,000 UNIT TAB PO SCH (08:34)
[2017-05-18] MEDS: HYDROCODONE/APAP (5/325) TAB PO PRN ×2 (08:34→17:10)
--- NOTE | 2017-05-18 11:52 | PN ---
Date/Time of Note Date/Time of Note DATE: 05/18/17 TIME: 11:52 Assessment/Plan VTE Prophylaxis VTE Prophylaxis Intervention: SCD's Lines/Catheters [facility] Saline Lock Urinary Cath still in place: No Assessment/Plan Chief Complaint/Hosp Course 1. Colles' fracture of the right wrist, severely comminuted and displaced. Status post open irrigation and debridement with manipulative reduction under general anesthesia with pin fixation along with immobilization of the right wrist and forearm in a short arm cast on 05/16/2017. Continue pain management. Continue physical therapy. 2. Polymyalgia rheumatica. The patient was on long-term steroids. Therefore, the patient was started on high-dose steroids prior to surgery to prevent any adrenal crisis. This will be tapered down. 3. Amblyopia of the right eye with history of macular degeneration. Continue eyedrops. Continue fall precautions. 4. Normocytic, normochromic anemia. Etiology unclear. Evidence of iron deficiency. Start the patient on iron supplements. 5. History of essential hypertension with elevated blood pressure readings. Off antihypertensives. We will monitor the blood pressure readings closely. 6. Fluids, electrolytes, and nutrition. Regular diet. 7. DVT prophylaxis. As per orthopedic surgery. Bilateral SCDs. 8. Gastrointestinal prophylaxis. Histamine 2 receptor blockers because of underlying IV steroid use. 9. Plan. Continue pain control. Start iron supplements. Taper down steroids. Patient needs further rehabilitation prior to discharge home. The patient lives by herself at home. SNF placement versus acute rehabilitation. Case discussed with Dr. Cunha. Problems: Subjective 24 Hr Interval Summary Free Text/Dictation Right wrist pain well controlled. Exam/Review of Systems Vital Signs Vitals Vital Signs Date Time Temp Pulse Resp B/P Pulse Ox O2 Delivery O2 Flow Rate FiO2 05/18/17 09:02 98.0 73 18 140/98 98 05/16/17 20:30 Nasal Cannula 1.0 Intake and Output 05/17/17 05/17/17 05/18/17 15:00 23:00 07:00 Intake Total 550 ml 700 ml Balance 550 ml 700 ml Exam General: Adequately build 81 year-old female sitting in a chair in no apparent distress. HEENT: Normocephalic. Ecchymosis on the supraorbital area., atraumatic. Eyes: Anicteric sclerae, conjunctivae clear. ENT: Nasal septum midline, oral mucosa moist. Neck supple, no JVD noticed. Respiratory: Bilaterally clear breath sounds. No use of accessory muscles of respiration. No adventitious breath sounds. Cardiovascular: S1, S2 heard. No murmurs or gallops. Abdomen: Soft, nontender, and nondistended. Bowel sounds positive in all 4 quadrants. Genitourinary: Deferred. Extremities: No cyanosis, no clubbing. Peripheral pulses palpable. Right forearm in a sling with cast. Good blood flow too the fingers on the right hand. Neurologic: Cranial nerves II through XII grossly intact. The patient is awake, alert, and oriented. Skin: Normal skin turgor. No skin rashes. Results Result Diagram: 05/17/17 0542 05/17/17 0542 Results 24 hrs Laboratory Tests Test 05/17/17 14:46 05/17/17 14:49 Ferritin 42.0 Iron Level 19 L Total Iron Binding Capacity 246 Percent Iron Saturation 8 L Medications Medications Current Medications Ondansetron HCl (Zofran Inj) 4 mg Q6H PRN IV NAUSEA AND/OR VOMITING; Start 05/15/17 at 22:00 Acetaminophen (Tylenol Tab) 650 mg Q6H PRN PO PAIN LEVEL 1-3 OR FEVER Last administered on 05/16/17 10:18; Admin Dose 650 MG; Start 05/15/17 at 22:00 Acetaminophen/ Hydrocodone Bitart ([place] (5/325)) 1 tab Q6H PRN PO PAIN LEVEL 7 -10 Last administered on 05/17/17 07:42; Admin Dose 1 TAB; Start 05/15/17 at 22 :30 Gabapentin (Neurontin) 600 mg BID PO Last administered on 05/18/17 08:33; Admin Dose 600 MG; Start 05/16/17 at 10:00 Trazodone HCl (Desyrel) 50 mg QHS PO Last administered on 05/17/17 20:41; Admin Dose 50 MG; Start 05/16/17 at 21:00 Latanoprost (Xalatan) 1 drop QHS BOTH EYES Last administered on 05/17/17 20:40 ; Admin Dose 1 DROP; Start 05/16/17 at 21:00 Timolol Maleate (Timoptic 0.5%) 1 drop BID BOTH EYES Last administered on 08:33; Admin Dose 1 DROP; Start 05/16/17 at 12:00 Cholecalciferol (Vitamin D) 1,000 unit DAILY PO Last administered on 05/18/17 08:34; Admin Dose 1,000 UNIT; Start 05/17/17 at 09:00 Morphine Sulfate (morphine) 2 mg Q2H PRN IV pain; Start 05/16/17 at 19:00 Acetaminophen/ Hydrocodone Bitart ([place] (5/325)) 1 tab Q3H PRN PO PAIN Last administered on 05/18/17 08:34; Admin Dose 1 TAB; Start 05/16/17 at 19:00 Famotidine (Pepcid) 20 mg DAILY PO Last administered on 05/18/17 08:33; Admin Dose 20 MG; Start 05/17/17 at 12:00 Hydrocortisone 50 mg 50 mg Q12 IV Last administered on 05/18/17 08:33; Admin Dose 50 MG; Start 05/18/17 at 09:00 Ferric Sodium Gluconate Complex/ Sodium Chloride (Ferrlecit/NS) 110 ml @ 100 mls/hr Q24H IVPB ; Start 05/18/17 at 12:00; Stop 05/20/17 at 13:05 VIVIAN CASTILLO NP May 18, 2017 11:52
[2017-05-18] MEDS ORDERED: BISACODYL (EC) 5 MG TAB PO PRN (13:00)
[2017-05-18] MEDS: POLYETHYLENE GLYCOL 17 GM PACKET PO SCH ×2 (13:22→21:42)
[2017-05-18] MEDS: SOD FERRIC GLUC COMPLX 125 MG in SOD CHLORIDE 0.9% 100 ML IVPB SCH (13:23)
--- NOTE | 2017-05-18 13:23 | CONS ---
Date/Time of Note Date/Time of Note DATE: 05/18/17 TIME: 13:23 Assessment/Plan Assessment/Plan Additional Assessment/Plan Colles' fracture of the right wrist, Status post open irrigation and debridement with reduction Status post fall, mechanical Rheumatoid arthritis Polymyalgia rheumatica. Macular degeneration. Anemia. Clinically and hemodynamically stable Continue Prophylactic antibiotics Pain Management as scheduled PT as tolerated Consultation Date/Type/Reason Admit Date/Time May 15, 2017 at 21:21 Initial Consult Date Exam/Review of Systems Vital Signs Vitals Vital Signs Date Time Temp Pulse Resp B/P Pulse Ox O2 Delivery O2 Flow Rate FiO2 05/18/17 13:12 98.0 69 18 122/58 98 05/16/17 20:30 Nasal Cannula 1.0 Intake and Output 05/17/17 05/17/17 05/18/17 15:00 23:00 07:00 Intake Total 550 ml 700 ml Balance 550 ml 700 ml Exam Constitutional: alert, oriented Head: atraumatic, normocephalic Neck: non-tender, supple Respiratory: clear to auscultation Cardiovascular: regular rate and rhythm Gastrointestinal: nl liver, spleen, non-tender, soft Extremities: normal pulses Results Result Diagram: 05/17/17 0542 05/17/17 0542 Results 24 hrs Laboratory Tests Test 05/17/17 14:46 05/17/17 14:49 Ferritin 42.0 Iron Level 19 L Total Iron Binding Capacity 246 Percent Iron Saturation 8 L Medications Medications Current Medications Ondansetron HCl (Zofran Inj) 4 mg Q6H PRN IV NAUSEA AND/OR VOMITING; Start 05/15/17 at 22:00 Acetaminophen (Tylenol Tab) 650 mg Q6H PRN PO PAIN LEVEL 1-3 OR FEVER Last administered on 05/16/17 10:18; Admin Dose 650 MG; Start 05/15/17 at 22:00 Acetaminophen/ Hydrocodone Bitart ([place] (5/325)) 1 tab Q6H PRN PO PAIN LEVEL 7 -10 Last administered on 05/17/17 07:42; Admin Dose 1 TAB; Start 05/15/17 at 22 :30 Gabapentin (Neurontin) 600 mg BID PO Last administered on 05/18/17 08:33; Admin Dose 600 MG; Start 05/16/17 at 10:00 Trazodone HCl (Desyrel) 50 mg QHS PO Last administered on 05/17/17 20:41; Admin Dose 50 MG; Start 05/16/17 at 21:00 Latanoprost (Xalatan) 1 drop QHS BOTH EYES Last administered on 05/17/17 20:40 ; Admin Dose 1 DROP; Start 05/16/17 at 21:00 Timolol Maleate (Timoptic 0.5%) 1 drop BID BOTH EYES Last administered on 08:33; Admin Dose 1 DROP; Start 05/16/17 at 12:00 Cholecalciferol (Vitamin D) 1,000 unit DAILY PO Last administered on 05/18/17 08:34; Admin Dose 1,000 UNIT; Start 05/17/17 at 09:00 Morphine Sulfate (morphine) 2 mg Q2H PRN IV pain; Start 05/16/17 at 19:00 Acetaminophen/ Hydrocodone Bitart ([place] (5/325)) 1 tab Q3H PRN PO PAIN Last administered on 05/18/17 08:34; Admin Dose 1 TAB; Start 05/16/17 at 19:00 Famotidine (Pepcid) 20 mg DAILY PO Last administered on 05/18/17 08:33; Admin Dose 20 MG; Start 05/17/17 at 12:00 Hydrocortisone 50 mg 50 mg Q12 IV Last administered on 05/18/17 08:33; Admin Dose 50 MG; Start 05/18/17 at 09:00; Stop 05/18/17 at 21:00 Ferric Sodium Gluconate Complex/ Sodium Chloride (Ferrlecit/NS) 110 ml @ 100 mls/hr Q24H IVPB ; Start 05/18/17 at 12:00; Stop 05/20/17 at 13:05 Prednisone (Prednisone) 10 mg BID PO ; Start 05/18/17 at 21:00 Polyethylene Glycol (Miralax) 17 gm BID PO ; Start 05/18/17 at 13:00 Bisacodyl (Dulcolax) 10 mg DAILY PRN PO CONSTIPATION; Start 05/18/17 at 13:00 TERRANCE ASHBY M.D. May 18, 2017 13:23
[2017-05-18] MEDS: traZODone 50 MG TAB PO SCH (21:41)
[2017-05-18] MEDS: predniSONE 10 MG TAB PO SCH (21:42)
[2017-05-18] MEDS: LATANOPROST 0.005% 2.5 ML OPH BOTH EYES SCH (21:43)
[2017-05-19] VITALS (10 sets, daily range): BP systolic 128–134; BP diastolic 60–69; PULSE 55–77; RESP 19–20
[2017-05-19] MEDS: HYDROCODONE/APAP (5/325) TAB PO PRN ×3 (00:12→16:27)
[2017-05-19] MEDS: POLYETHYLENE GLYCOL 17 GM PACKET PO SCH (08:47)
[2017-05-19] MEDS: FAMOTIDINE 20 MG TAB PO SCH (08:47)
[2017-05-19] MEDS: predniSONE 10 MG TAB PO SCH (08:47)
[2017-05-19] MEDS: GABAPENTIN 300 MG CAP PO SCH (08:47)
[2017-05-19] MEDS: CHOLECALCIFEROL 1,000 UNIT TAB PO SCH (08:47)
[2017-05-19] MEDS: TIMOLOL 0.5% 5 ML OPH BOTH EYES SCH (08:48)
[2017-05-19] MEDS: SOD FERRIC GLUC COMPLX 125 MG in SOD CHLORIDE 0.9% 100 ML IVPB SCH (12:27)
--- NOTE | 2017-05-19 13:35 | CONS ---
Date/Time of Note Date/Time of Note DATE: 05/19/17 TIME: 13:30 Assessment/Plan Assessment/Plan Chief Complaint/Hosp Course IMPRESSION: 1. Preoperative evaluation prior to the patient undergoing a wrist open reduction, internal fixation with normal EF by echo, negative troponins, intermediate clinical predictors, going for moderate-risk surgery. Thus, at this time, the patient is without cardiac contraindication to proceeding to the OR on current medications at moderate risk.- Now post-op s/p open I+D/reduction 2. Abnormal electrocardiogram with right bundle branch block. 3. PACs, frequent, and question SVT. 4. Hypertension-currently well controlled 5. Status post fall, mechanical by description. 6. Rheumatoid arthritis, on baseline steroids, now on stress dose steroids. 7. Polymyalgia rheumatica. 8. Macular degeneration. 9. Anemia. Recc: -Tele -serial ecg's -Pain control -Follow BP closely -to be transferred to inpatient rehab Problems: Consultation Date/Type/Reason Admit Date/Time May 15, 2017 at 21:21 Initial Consult Date 05/16/2017 Type of Consultation: cardiology Reason for Consultation Pre-op Referring Provider: JULIÁN MYERS Exam/Review of Systems Vital Signs Vitals Vital Signs Date Time Temp Pulse Resp B/P Pulse Ox O2 Delivery O2 Flow Rate FiO2 05/19/17 12:26 77 05/19/17 11:38 98.3 20 129/60 98 05/16/17 20:30 Nasal Cannula 1.0 Intake and Output 05/18/17 05/18/17 05/19/17 15:00 23:00 07:00 Intake Total 910 ml 600 ml Balance 910 ml 600 ml Exam Review of Systems: CONSTITUTIONAL: No fevers, chills. PULMONARY: No sob CARDIOVASCULAR: No chest pain/palpitations GASTROINTESTINAL: No nausea/vomiting. GENITOURINARY: No hematuria/dysuria. MUSCULOSKELETAL: mild pain in arm PSYCHIATRIC: The patient denies depression. NEUROLOGIC: No weakness Constitutional: alert Psych: no complaints Head: normocephalic ENMT: mucosa pink and moist Neck: jvd (9 cm water), supple Respiratory: diminished breath sounds Cardiovascular: regular rate and rhythm Gastrointestinal: non-tender, soft Musculoskeletal: muscle tone (normal) Extremities: edema (none), other (arm in sling) Neurological: other (No focal deficits) Results Result Diagram: 05/19/17 0635 05/19/17 0635 Results 24 hrs Laboratory Tests Test 05/19/17 06:35 White Blood Count 9.8 Red Blood Count 3.39 L Hemoglobin 10.2 L Hematocrit 32.9 L Mean Corpuscular Volume 97.1 Mean Corpuscular Hemoglobin 30.1 Mean Corpuscular Hemoglobin Concent 31.0 L Red Cell Distribution Width 14.3 Platelet Count 223 Mean Platelet Volume 10.5 H Neutrophils % 88.9 H Lymphocytes % 5.5 L Monocytes % 3.8 Eosinophils % 0.1 Basophils % 0.1 Nucleated Red Blood Cells % 0.0 Neutrophils # 8.7 H Lymphocytes # 0.5 L Monocytes # 0.4 Eosinophils # 0.0 Basophils # 0.0 Nucleated Red Blood Cells # 0.0 Sodium Level 143 Potassium Level 4.1 Chloride Level 110 Carbon Dioxide Level 27 Anion Gap 10 Blood Urea Nitrogen 18 Creatinine 0.64 Glucose Level 111 Calcium Level 7.8 L Phosphorus Level 3.4 Magnesium Level 2.1 Medications Medications Current Medications Ondansetron HCl (Zofran Inj) 4 mg Q6H PRN IV NAUSEA AND/OR VOMITING; Start 05/15/17 at 22:00 Acetaminophen (Tylenol Tab) 650 mg Q6H PRN PO PAIN LEVEL 1-3 OR FEVER Last administered on 05/16/17 10:18; Admin Dose 650 MG; Start 05/15/17 at 22:00 Acetaminophen/ Hydrocodone Bitart ([place] (5/325)) 1 tab Q6H PRN PO PAIN LEVEL 7 -10 Last administered on 05/19/17 00:12; Admin Dose 1 TAB; Start 05/15/17 at 22 :30 Gabapentin (Neurontin) 600 mg BID PO Last administered on 05/19/17 08:47; Admin Dose 600 MG; Start 05/16/17 at 10:00 Trazodone HCl (Desyrel) 50 mg QHS PO Last administered on 05/18/17 21:41; Admin Dose 50 MG; Start 05/16/17 at 21:00 Latanoprost (Xalatan) 1 drop QHS BOTH EYES Last administered on 05/18/17 21:43 ; Admin Dose 1 DROP; Start 05/16/17 at 21:00 Timolol Maleate (Timoptic 0.5%) 1 drop BID BOTH EYES Last administered on 08:48; Admin Dose 1 DROP; Start 05/16/17 at 12:00 Cholecalciferol (Vitamin D) 1,000 unit DAILY PO Last administered on 05/19/17 08:47; Admin Dose 1,000 UNIT; Start 05/17/17 at 09:00 Morphine Sulfate (morphine) 2 mg Q2H PRN IV pain; Start 05/16/17 at 19:00 Acetaminophen/ Hydrocodone Bitart ([place] (5/325)) 1 tab Q3H PRN PO PAIN Last administered on 05/19/17 08:48; Admin Dose 1 TAB; Start 05/16/17 at 19:00 Famotidine 20 mg 20 mg DAILY PO Last administered on 05/19/17 08:47; Admin Dose 20 MG; Start 05/17/17 at 12:00 Ferric Sodium Gluconate Complex/ Sodium Chloride (Ferrlecit/NS) 110 ml @ 100 mls/hr Q24H IVPB Last administered on 05/19/17 12:27; Admin Dose 100 MLS/HR; Start 05/18/17 at 12:00; Stop 05/20/17 at 13:05 Prednisone (Prednisone) 10 mg BID PO Last administered on 05/19/17 08:47; Admin Dose 10 MG; Start 05/18/17 at 21:00 Polyethylene Glycol (Miralax) 17 gm BID PO Last administered on 05/19/17 08:47 ; Admin Dose 17 GM; Start 05/18/17 at 13:00 Bisacodyl (Dulcolax) 10 mg DAILY PRN PO CONSTIPATION; Start 05/18/17 at 13:00 MICH WOODALL May 19, 2017 13:35
--- NOTE | 2017-05-19 22:25 | PDOCDIS ---
Discharge Instructions DIAGNOSIS Discharge Diagnosis 1. Colles' fracture of the right wrist, severely comminuted and displaced. 2. Polymyalgia rheumatica. 3. Amblyopia of the right eye with history of macular degeneration. 4. Normocytic, normochromic anemia. 5. History of essential hypertension with elevated blood pressure readings CONDITION Patient Condition: Stable HOME CARE INSTRUCTIONS: Diet Instructions: Regular OTHER ORDERS: Other Orders: further care and management per GABBI WHITAKER May 19, 2017 22:25
--- NOTE | 2017-05-19 22:29 | PN ---
Date/Time of Note Date/Time of Note DATE: 05/19/17 TIME: 22:26 Assessment/Plan VTE Prophylaxis VTE Prophylaxis Intervention: SCD's Lines/Catheters IV [facility]ter Type (from [facility]): Saline Lock Urinary Cath still in place: No Assessment/Plan Chief Complaint/Hosp Course Assessment and plan 1. Colles' fracture of the right wrist, severely comminuted and displaced. Patient is status post open irrigation and debridement with manipulative reduction under general anesthesia with pin fixation along the immobilization of the right wrist and forearm in a short arm cast on May 16, 2017. Continue physical therapy. 2. Polymyalgia rheumatica. Continue steroid. Continue with analgesics as needed. 3. Amblyopia of the right eye. Continue eyedrops. Continue fall precautions. 4. Normocytic anemia. Noted with iron deficiency. Continue intractable pain. 5. History of hypertension. Stable at present. Monitor for now. Disposition plan: Tentative plan for transfer to acute rehab facility once bed available. Discussed plan of care with Dr. Mckinnon Problems: Subjective 24 Hr Interval Summary Free Text/Dictation Comfortable at present. No signs of distress. Family at bedside. Exam/Review of Systems Vital Signs Vitals Vital Signs Date Time Temp Pulse Resp B/P Pulse Ox O2 Delivery O2 Flow Rate FiO2 05/19/17 16:25 74 05/19/17 16:04 98.1 20 128/63 98 05/16/17 20:30 Nasal Cannula 1.0 Intake and Output 05/18/17 05/18/17 05/19/17 15:00 23:00 07:00 Intake Total 910 ml 600 ml Balance 910 ml 600 ml Exam Constitutional: alert, oriented Psych: nl mood/affect Head: normocephalic Neck: non-tender, supple Respiratory: clear to auscultation, normal air movement Cardiovascular: regular rate and rhythm Gastrointestinal: soft Musculoskeletal: No swelling Neurological: CERTIFIED MEDICATION TECHNICIAN II-XII intact, nl mental status, nl speech Results Result Diagram: 05/19/17 0635 05/19/17 0635 Results 24 hrs Laboratory Tests Test 05/19/17 06:35 White Blood Count 9.8 Red Blood Count 3.39 L Hemoglobin 10.2 L Hematocrit 32.9 L Mean Corpuscular Volume 97.1 Mean Corpuscular Hemoglobin 30.1 Mean Corpuscular Hemoglobin Concent 31.0 L Red Cell Distribution Width 14.3 Platelet Count 223 Mean Platelet Volume 10.5 H Neutrophils % 88.9 H Lymphocytes % 5.5 L Monocytes % 3.8 Eosinophils % 0.1 Basophils % 0.1 Nucleated Red Blood Cells % 0.0 Neutrophils # 8.7 H Lymphocytes # 0.5 L Monocytes # 0.4 Eosinophils # 0.0 Basophils # 0.0 Nucleated Red Blood Cells # 0.0 Sodium Level 143 Potassium Level 4.1 Chloride Level 110 Carbon Dioxide Level 27 Anion Gap 10 Blood Urea Nitrogen 18 Creatinine 0.64 Glucose Level 111 Calcium Level 7.8 L Phosphorus Level 3.4 Magnesium Level 2.1 Medications Medications Current Medications Ondansetron HCl (Zofran Inj) 4 mg Q6H PRN IV NAUSEA AND/OR VOMITING; Start 05/15/17 at 22:00 Acetaminophen (Tylenol Tab) 650 mg Q6H PRN PO PAIN LEVEL 1-3 OR FEVER Last administered on 05/16/17 10:18; Admin Dose 650 MG; Start 05/15/17 at 22:00 Acetaminophen/ Hydrocodone Bitart ([place] (5/325)) 1 tab Q6H PRN PO PAIN LEVEL 7 -10 Last administered on 05/19/17 16:27; Admin Dose 1 TAB; Start 05/15/17 at 22 :30 Gabapentin (Neurontin) 600 mg BID PO Last administered on 05/19/17 08:47; Admin Dose 600 MG; Start 05/16/17 at 10:00 Trazodone HCl (Desyrel) 50 mg QHS PO Last administered on 05/18/17 21:41; Admin Dose 50 MG; Start 05/16/17 at 21:00 Latanoprost (Xalatan) 1 drop QHS BOTH EYES Last administered on 05/18/17 21:43 ; Admin Dose 1 DROP; Start 05/16/17 at 21:00 Timolol Maleate (Timoptic 0.5%) 1 drop BID BOTH EYES Last administered on 08:48; Admin Dose 1 DROP; Start 05/16/17 at 12:00 Cholecalciferol (Vitamin D) 1,000 unit DAILY PO Last administered on 05/19/17 08:47; Admin Dose 1,000 UNIT; Start 05/17/17 at 09:00 Morphine Sulfate (morphine) 2 mg Q2H PRN IV pain; Start 05/16/17 at 19:00 Acetaminophen/ Hydrocodone Bitart ([place] (5/325)) 1 tab Q3H PRN PO PAIN Last administered on 05/19/17 08:48; Admin Dose 1 TAB; Start 05/16/17 at 19:00 Famotidine 20 mg 20 mg DAILY PO Last administered on 05/19/17 08:47; Admin Dose 20 MG; Start 05/17/17 at 12:00 Ferric Sodium Gluconate Complex/ Sodium Chloride (Ferrlecit/NS) 110 ml @ 100 mls/hr Q24H IVPB Last administered on 05/19/17 12:27; Admin Dose 100 MLS/HR; Start 05/18/17 at 12:00; Stop 05/20/17 at 13:05 Prednisone (Prednisone) 10 mg BID PO Last administered on 05/19/17 08:47; Admin Dose 10 MG; Start 05/18/17 at 21:00 Polyethylene Glycol (Miralax) 17 gm BID PO Last administered on 05/19/17 08:47 ; Admin Dose 17 GM; Start 05/18/17 at 13:00 Bisacodyl (Dulcolax) 10 mg DAILY PRN PO CONSTIPATION; Start 05/18/17 at 13:00 GABBI CRAIG May 19, 2017 22:29
== END 2017-05-19 20:49 | DRG 512 ==
LOC: E/R 18:16 → TEL 21:21
PROVIDERS: ADMIT Family Medicine; ATTEND Family Medicine
PROC: 0HDDXZZ Extraction of Right Lower Arm Skin, External Approach (ICD-10-PCS; 2017-05-16)
PROC: 0PSH34Z Reposition Right Radius with Internal Fixation Device, Percutaneous Approach (ICD-10-PCS; principal; 2017-05-16 14:00)
DX: S52.531A Colles' fracture of right radius, initial encounter for closed fracture (principal); D64.9 Anemia, unspecified; I45.10 Unspecified right bundle-branch block; I10 Essential (primary) hypertension; S00.03XA Contusion of scalp, initial encounter; H35.30 Unspecified macular degeneration; H53.001 Unspecified amblyopia, right eye; M06.9 Rheumatoid arthritis, unspecified; M35.3 Polymyalgia rheumatica; H57.9 Unspecified disorder of eye and adnexa; K44.9 Diaphragmatic hernia without obstruction or gangrene; W10.9XXA Fall (on) (from) unspecified stairs and steps, initial encounter
CPT/HCPCS: 36415; 70450; 71010; 72170; 73100; 80048; 80053; 80061; 82728; 83036; 83540; 83690; 83735; 84100; 84484; 85025; 85335; 85610; 90471; 90715; 93005; 93306; 94770; 96374; 96375; 97116; 97162; 97530; C1713; J0131; J0690; J0696; J1100; J1720; J1885; J2370; J2405; J2765; J2795; J2916; J3010; J7040; J7512

== ENCOUNTER 2017-05-19 21:00 | Inpatient (IN) | payer MEDICARE, BC ==
[~2017-05-19] VITALS: Ht 152.4 cm; Wt 60.0 kg
[~2017-05-19 21:00] MED LIST changes: +CALCIUM PO; -ETOD300C29 PO; -HYDR-906 PO; -HYDR12.58 PO; -ONDA4TAB8 PO
[2017-05-19 22:00] VITALS: BP 117/74; PULSE 68; RESP 16; Ht 152.4 cm; Wt 60.0 kg
[2017-05-19] MEDS ORDERED: TIMOLOL 0.5% 5 ML OPH BOTH EYES SCH (23:07)
[2017-05-19] MEDS ORDERED: NACL 0.9% 3 ML SYG IV SCH (23:07)
[2017-05-19] MEDS ORDERED: morphine 2 MG INJ IV PRN (23:07)
[2017-05-19] MEDS ORDERED: BISACODYL (EC) 5 MG TAB PO PRN (23:07)
[2017-05-19] MEDS ORDERED: ACETAMINOPHEN 325 MG TAB PO PRN (23:07)
[2017-05-20] MEDS: HYDROCODONE/APAP (5/325) TAB PO PRN ×4 (00:50→22:44)
[2017-05-20 01:14] LABS: ADD UMIC NO; UR ASCORBIC ACID NEGATIVE (NEGATIVE); UR BILIRUBIN (Dip) NEGATIVE (NEGATIVE); UR BLOOD (Dip) NEGATIVE (NEGATIVE); UR CLARITY CLEAR (CLEAR); UR COLOR STRAW (YELLOW); UR GLUCOSE (Dip) NEGATIVE (NEGATIVE); UR KETONES (Dip) NEGATIVE (NEGATIVE); UR LEUKOCYTE ESTERASE (Dip) NEGATIVE Leu/ul (NEGATIVE); UR NITRITE (Dip) NEGATIVE (NEGATIVE); UR SPECIFIC GRAVITY (Dip) 1.005 (1.003-1.030); UR TOTAL PROTEIN (Dip) NEGATIVE (NEGATIVE); UR UROBILINOGEN (Dip) NEGATIVE (NEGATIVE)
[2017-05-20 03:00] VITALS: BP 143/67; PULSE 61; RESP 16
[2017-05-20 06:28] LABS: BASOPHILS % 0.1 % (0.0-2.0); EOSINOPHILS # 0.1 10^3/ul (0.0-0.5); EOSINOPHILS % 0.7 % (0.0-7.0); HEMATOCRIT 33.8 % (37.0-47.0); HEMOGLOBIN 10.7 g/dl (12.0-16.0); LYMPHOCYTES # 0.9 10^3/ul (0.8-2.9); LYMPHOCYTES % 8.4 % (15.0-51.0); MEAN CORPUSCULAR HGB CONC 31.7 g/dl (32.0-37.0); MEAN PLATELET VOLUME 10.2 fl (7.4-10.4); MONOCYTE # 0.5 10^3/ul (0.3-0.9); MONOCYTES % 4.8 % (0.0-11.0); NEUTROPHIL # 8.6 10^3/ul (1.6-7.5); NEUTROPHILS % 84.3 % (39.0-77.0); PLATELET COUNT 230 10^3/UL (140-415); RED BLOOD COUNT 3.45 10^6/ul (4.20-5.40); RED CELL DISTRIBUTION WIDTH 14.1 % (11.5-14.5); WHITE BLOOD COUNT 10.1 10^3/ul (4.8-10.8)
[2017-05-20 06:45] LABS: ALBUMIN 2.8 g/dl (3.3-4.9); ALBUMIN/GLOBULIN RATIO 1.12; BILIRUBIN,INDIRECT 0.2 mg/dl (0-1.1); BILIRUBIN,TOTAL 0.2 mg/dl (0.2-1.3); CALCIUM 7.9 mg/dl (8.4-10.2); CREATININE 0.65 mg/dl (0.44-1.00); POTASSIUM 4.3 mmol/L (3.5-5.1); TOTAL PROTEIN 5.3 g/dl (6.1-8.1)
[2017-05-20 07:30] VITALS: BP 163/71; PULSE 60; RESP 18
[2017-05-20] MEDS: POLYETHYLENE GLYCOL 17 GM PACKET PO SCH ×2 (08:27→21:00)
[2017-05-20] MEDS: GABAPENTIN 300 MG CAP PO SCH ×2 (08:27→21:21)
[2017-05-20] MEDS: CHOLECALCIFEROL 1,000 UNIT TAB PO SCH (08:28)
[2017-05-20] MEDS: FAMOTIDINE 20 MG TAB PO SCH (08:28)
[2017-05-20] MEDS: predniSONE 10 MG TAB PO SCH ×2 (09:00→21:21)
[2017-05-20 09:39] VITALS: BP 163/61; RESP 18
--- NOTE | 2017-05-20 11:04 | CONS ---
Date/Time of Note Date/Time of Note DATE: 05/20/17 TIME: 11:04 Consultation Date/Type/Reason Admit Date/Time May 19, 2017 at 21:00 Initial Consult Date Exam/Review of Systems Vital Signs Vitals Vital Signs Date Time Temp Pulse Resp B/P Pulse Ox O2 Delivery O2 Flow Rate FiO2 05/20/17 09:39 97.7 60 18 163/61 97 05/20/17 03:00 Room Air Results Result Diagram: 05/20/17 0611 05/20/17 0611 Results 24 hrs Laboratory Tests Test 05/20/17 00:01 05/20/17 06:11 Urine Color STRAW Urine Clarity CLEAR Urine pH 7.0 Urine Specific [place] 1.005 Urine Ketones NEGATIVE Urine Nitrite NEGATIVE Urine Bilirubin NEGATIVE Urine Urobilinogen NEGATIVE Urine Leukocyte Esterase NEGATIVE Urine Hemoglobin NEGATIVE Urine Glucose NEGATIVE Urine Total Protein NEGATIVE White Blood Count 10.1 Red Blood Count 3.45 L Hemoglobin 10.7 L Hematocrit 33.8 L Mean Corpuscular Volume 98.0 Mean Corpuscular Hemoglobin 31.0 Mean Corpuscular Hemoglobin Concent 31.7 L Red Cell Distribution Width 14.1 Platelet Count 230 Mean Platelet Volume 10.2 Neutrophils % 84.3 H Lymphocytes % 8.4 L Monocytes % 4.8 Eosinophils % 0.7 Basophils % 0.1 Nucleated Red Blood Cells % 0.0 Neutrophils # 8.6 H Lymphocytes # 0.9 Monocytes # 0.5 Eosinophils # 0.1 Basophils # 0.0 Nucleated Red Blood Cells # 0.0 Sodium Level 142 Potassium Level 4.3 Chloride Level 110 Carbon Dioxide Level 29 Anion Gap 7 L Blood Urea Nitrogen 13 Creatinine 0.65 Glucose Level 98 Calcium Level 7.9 L Total Bilirubin 0.2 Direct Bilirubin 0.00 Indirect Bilirubin 0.2 Aspartate Amino Transf (AST/SGOT) 21 Alanine Aminotransferase (ALT/SGPT) 32 Alkaline Phosphatase 43 Total Protein 5.3 L Albumin 2.8 L Globulin 2.50 Albumin/Globulin Ratio 1.12 Medications Medications Current Medications Acetaminophen (Tylenol Tab) 650 mg Q6H PRN PO PAIN LEVEL 1-3 OR FEVER; Start 05/19/17 at 23:07 Acetaminophen/ Hydrocodone Bitart ([place] (5/325)) 1 tab Q6H PRN PO PAIN LEVEL 7 -10; Start 05/19/17 at 23:07 Gabapentin (Neurontin) 600 mg BID PO Last administered on 05/20/17 08:27; Admin Dose 600 MG; Start 05/19/17 at 23:07 Trazodone HCl (Desyrel) 50 mg QHS PO ; Start 05/19/17 at 23:07 Latanoprost (Xalatan) 1 drop QHS BOTH EYES ; Start 05/19/17 at 23:07 Cholecalciferol (Vitamin D) 1,000 unit DAILY PO Last administered on 05/20/17 08:28; Admin Dose 1,000 UNIT; Start 05/19/17 at 23:07 Morphine Sulfate (morphine) 2 mg Q2H PRN IV pain; Start 05/19/17 at 23:07 Acetaminophen/ Hydrocodone Bitart ([place] (5/325)) 1 tab Q3H PRN PO PAIN Last administered on 05/20/17 00:50; Admin Dose 1 TAB; Start 05/19/17 at 23:07 Famotidine (Pepcid) 20 mg DAILY PO Last administered on 05/20/17 08:28; Admin Dose 20 MG; Start 05/19/17 at 23:07 Prednisone (Prednisone) 10 mg BID PO ; Start 05/19/17 at 23:07 Polyethylene Glycol (Miralax) 17 gm BID PO Last administered on 05/20/17 08:27 ; Admin Dose 17 GM; Start 05/19/17 at 23:07 Bisacodyl (Dulcolax) 10 mg DAILY PRN PO CONSTIPATION; Start 05/19/17 at 23:07 Timolol Maleate (Timoptic 0.5%) 1 drop BID BOTH EYES ; Start 05/20/17 at 10:49 JANEL ALVAREZ NP May 20, 2017 11:04
--- NOTE | 2017-05-20 12:09 | CONS ---
DATE OF ADMISSION: 05/19/2017 DATE OF CONSULTATION: 05/20/2017 REHABILITATION IMPAIRMENT CATEGORY: Blunt head trauma with right frontal scalp hematoma, loss of consciousness in addition to right wrist Colles fracture, status post incision and drainage and immobilization of the wrist. ACTIVE COMORBIDITIES: 1. Rheumatoid arthritis affecting multiple joints including bilateral hands, knees and feet. 2. Right eye blindness. 3. Polymyalgia rheumatica. 4. Hypertension. 5. Impairments in self-care and mobility. HISTORY OF PRESENT ILLNESS: The patient is a very pleasant 81-year-old right- handed female who is status post a mechanical fall with resultant right frontal scalp hematoma, right Colles wrist fracture requiring I and D and immobilization , and diffuse pain. The patient apparently did have a loss of consciousness and used her Life Alert to call for assistance. The patient was noted to have significant impairments in self-care and mobility as compared to baseline, and has been cleared to transfer to the rehabilitation unit for comprehensive interdisciplinary rehab care. FUNCTIONAL HISTORY: Prior to recent events, she was independent in self-care tasks and mobility. Currently, she requires moderate to maximal assist for self -care activities and moderate assist for mobility tasks. I have reviewed the preadmission screen and patient's current functional status is consistent with the preadmission screen. SOCIAL HISTORY: The patient lives at home and hopes to return there upon discharge. PAST MEDICAL HISTORY: 1. Rheumatoid arthritis affecting multiple joints including bilateral hands, knees and feet. 2. Polymyalgia rheumatica. 3. Right eye blindness. 4. Hypertension. 5. History of low back surgery. 6. History of hiatal hernia. CURRENT MEDICATIONS: 1. Pepcid 20 mg p.o. every day. 2. [place] p.r.n. 3. Prednisone 10 mg b.i.d. 4. Desyrel 50 mg p.o. at bedtime. 5. Timoptic eyedrops. ALLERGIES: SULFA. PHYSICAL EXAMINATION: VITAL SIGNS: The patient is currently afebrile with stable vital signs. HEENT: The patient with notable right eye decreased visual acuity. The patient also with notable right frontal, periorbital ecchymoses. Oropharynx clear. NECK: Supple. LUNGS: Clear anteriorly. CARDIAC: S1, S2. ABDOMEN: Soft, nontender. Positive bowel sounds. EXTREMITIES: The right upper extremity immobilized and sling in place. The patient with antigravity strength in bilateral lower extremities. The patient with impaired dynamic balance. PLAN: The patient has been admitted for comprehensive interdisciplinary acute rehab and is anticipated to tolerate 3 hours of daily therapy in divided doses for at least 5/7 days a week. Treatment plan will include: 1. Physical therapy to focus on bed mobility, transfers and household ambulation with the goal of having patient reach a standby assist level. 2. Occupational therapy to focus on hygiene, grooming, dressing, bathing and toileting activities with the goal of having the patient reach a standby assist level. 3. Rehabilitation nursing for carryover of therapeutic interventions, the goal of continent of bowel and bladder and the goal of pain adequately managed on oral medications. 4. Speech therapy for full cognitive assessment and retraining with the goal of having the patient return to baseline cognition. REHABILITATION BARRIER: Pain. INTERVENTION FOR BARRIER: Comprehensive interdisciplinary approach. ESTIMATED LENGTH OF STAY: 14 days. DISPOSITION GOAL: Home. I acknowledge that I performed a full physical examination on this patient within 24 hours of admission to the rehabilitation unit and believe the patient is a good candidate for comprehensive interdisciplinary rehab care and is anticipated to make reasonable goals in a reasonable period of time as outlined above. Dictated By: GEN SALAZAR/NIKO Conf#: [id number] DID#: [id number] VILMA
--- NOTE | 2017-05-20 13:32 | CONS ---
Date/Time of Note Date/Time of Note DATE: 05/20/17 TIME: 13:27 Assessment/Plan Assessment/Plan Chief Complaint/Hosp Course 81-year-old female with a past medical history of hypertension, low back surgery , hiatal hernia, right eye blindness, rheumatoid arthritis of multiple joints, who sustained blunt head trauma with right frontal scalp hematoma, right wrist fracture for which she had undergone incision and drainage with manipulative reduction and immobilization of the wrist, now admitted to acute rehabilitation unit for further complex interdisciplinary physical therapy. 1. Colles' fracture of the right wrist, severely comminuted and displaced. - Status post open irrigation and debridement with manipulative reduction and immobilization of the right wrist and forearm in a short arm cast on May. -Continue as needed pain medications -PT/OT eval and treatment. 2. Polymyalgia rheumatica. -Continue steroid,PRN pain meds. 3. Amblyopia of the right eye. - Continue eyedrops - Fall precautions. 4. Anemia with iron deficiency. H&H stable. -Start low-dose oral iron replacement. 5. History of hypertension. - Stable at present. Monitor for now. 6. History of constipation. -Stool softeners and PRN laxatives. Patient was seen in collaboration with . Approximately 60 minutes was spent on this consultation. Problems: Consultation Date/Type/Reason Admit Date/Time May 19, 2017 at 21:00 Hx of Present Illness This is a 81-year-old female with a past medical history of hypertension, low back surgery, hiatal hernia, right eye blindness, rheumatoid arthritis of multiple joints, who sustained blunt head trauma with right frontal scalp hematoma, right wrist fracture for which she had undergone incision and drainage with manipulative reduction and immobilization of the wrist at [facility] by Dr. Asher, who is now admitted to acute rehabilitation unit for further complex interdisciplinary physical therapy. Patient denies any chest pain, palpitation, shortness of breath, nausea, vomiting, abdominal pain, numbness, tingling, or other constitutional symptoms. Labs with hemoglobin 10.7, hematocrit 33.8. Otherwise unremarkable. Vital signs within acceptable range. A 12 point review of system was assessed and is negative other than what is mentioned in the HPI. Past Medical History See HPI Past Surgical History See HPI Social History Patient denied any history of alcohol, smoking or illicit drug use. Smoking Status: Never smoker Exam/Review of Systems Vital Signs Vitals Vital Signs Date Time Temp Pulse Resp B/P Pulse Ox O2 Delivery O2 Flow Rate FiO2 05/20/17 09:39 97.7 60 18 163/61 97 05/20/17 03:00 Room Air Exam General: Elderly female, not in any acute distress . HEENT: Normocephalic, Atraumatic, No laceration or hematoma; Eyes: PEERL, Conjunctiva clear, Anicteric sclera Neck: Supple without any lymphadenopathy, nontender, no JVD, no carotid bruits, trachea midline, no thyromegaly Cardiac: S1, S2 auscultated, regular rhythm and rate, no mumurs or gallop Pulmonary: Normal respiratory effort. Chest clear to auscultation bilaterally, no adventitious breath sounds GI: Abdomen normal to inspection. Soft, non tender, non- distended, no masses, no rebound tenderness or guarding. Bowel sounds active on all four quadrants Genitourinary: Deferred Extremities: Right arm with cast. No cyanosis/tingling/numbness/edema undercast that can be seen. Pulses [2+] bilaterally. Full ROM on all four extremities. No focal weakness appreciated. Neurologic: Alert to person, place, time, and situation. Affect appropriate, intact sensation. Skin: Clean,dry, and intact. No ecchymosis, no rashes, or lesions Results Result Diagram: 05/20/1761005/20/17 06 Results 24 hrs Laboratory Tests Test 05/20/17 00:01 05/20/17 06:11 Urine Color STRAW Urine Clarity CLEAR Urine pH 7.0 Urine Specific [place] 1.005 Urine Ketones NEGATIVE Urine Nitrite NEGATIVE Urine Bilirubin NEGATIVE Urine Urobilinogen NEGATIVE Urine Leukocyte Esterase NEGATIVE Urine Hemoglobin NEGATIVE Urine Glucose NEGATIVE Urine Total Protein NEGATIVE White Blood Count 10.1 Red Blood Count 3.45 L Hemoglobin 10.7 L Hematocrit 33.8 L Mean Corpuscular Volume 98.0 Mean Corpuscular Hemoglobin 31.0 Mean Corpuscular Hemoglobin Concent 31.7 L Red Cell Distribution Width 14.1 Platelet Count 230 Mean Platelet Volume 10.2 Neutrophils % 84.3 H Lymphocytes % 8.4 L Monocytes % 4.8 Eosinophils % 0.7 Basophils % 0.1 Nucleated Red Blood Cells % 0.0 Neutrophils # 8.6 H Lymphocytes # 0.9 Monocytes # 0.5 Eosinophils # 0.1 Basophils # 0.0 Nucleated Red Blood Cells # 0.0 Sodium Level 142 Potassium Level 4.3 Chloride Level 110 Carbon Dioxide Level 29 Anion Gap 7 L Blood Urea Nitrogen 13 Creatinine 0.65 Glucose Level 98 Calcium Level 7.9 L Total Bilirubin 0.2 Direct Bilirubin 0.00 Indirect Bilirubin 0.2 Aspartate Amino Transf (AST/SGOT) 21 Alanine Aminotransferase (ALT/SGPT) 32 Alkaline Phosphatase 43 Total Protein 5.3 L Albumin 2.8 L Globulin 2.50 Albumin/Globulin Ratio 1.12 Medications Medications Current Medications Acetaminophen (Tylenol Tab) 650 mg Q6H PRN PO PAIN LEVEL 1-3 OR FEVER; Start 05/19/17 at 23:07 Acetaminophen/ Hydrocodone Bitart ([place] (5/325)) 1 tab Q6H PRN PO PAIN LEVEL 7 -10 Last administered on 05/20/17 11:56; Admin Dose 1 TAB; Start 05/19/17 at 23 :07 Gabapentin (Neurontin) 600 mg BID PO Last administered on 05/20/17 08:27; Admin Dose 600 MG; Start 05/19/17 at 23:07 Trazodone HCl (Desyrel) 50 mg QHS PO ; Start 05/19/17 at 23:07 Latanoprost (Xalatan) 1 drop QHS BOTH EYES ; Start 05/19/17 at 23:07 Cholecalciferol (Vitamin D) 1,000 unit DAILY PO Last administered on 05/20/17 08:28; Admin Dose 1,000 UNIT; Start 05/19/17 at 23:07 Morphine Sulfate (morphine) 2 mg Q2H PRN IV pain; Start 05/19/17 at 23:07 Acetaminophen/ Hydrocodone Bitart ([place] (5/325)) 1 tab Q3H PRN PO PAIN Last administered on 05/20/17 00:50; Admin Dose 1 TAB; Start 05/19/17 at 23:07 Famotidine (Pepcid) 20 mg DAILY PO Last administered on 05/20/17 08:28; Admin Dose 20 MG; Start 05/19/17 at 23:07 Prednisone (Prednisone) 10 mg BID PO ; Start 05/19/17 at 23:07 Polyethylene Glycol (Miralax) 17 gm BID PO Last administered on 05/20/17 08:27 ; Admin Dose 17 GM; Start 05/19/17 at 23:07 Bisacodyl (Dulcolax) 10 mg DAILY PRN PO CONSTIPATION; Start 05/19/17 at 23:07 Timolol Maleate (Timoptic 0.5%) 1 drop BID BOTH EYES ; Start 05/20/17 at 10:49 JANEL ALVAREZ NP May 20, 2017 13:32
[2017-05-20 14:00] VITALS: BP 144/65; RESP 18
[2017-05-20] MEDS: FERROUS SULFATE (EC) 325 MG TAB PO SCH (14:00)
[2017-05-20] MEDS: DOCUSATE SODIUM 100 MG CAP PO SCH (14:00)
[2017-05-20 20:00] VITALS: BP 126/73; RESP 18
[2017-05-20] MEDS: LATANOPROST 0.005% 2.5 ML OPH BOTH EYES SCH (21:20)
[2017-05-20] MEDS: traZODone 50 MG TAB PO SCH (21:20)
[2017-05-20] MEDS: TIMOLOL 0.5% 5 ML OPH BOTH EYES SCH (21:30)
[2017-05-21 02:00] VITALS: BP 155/70; RESP 18
[2017-05-21 08:00] VITALS: BP 116/64; RESP 18
[2017-05-21] MEDS: POLYETHYLENE GLYCOL 17 GM PACKET PO SCH ×2 (08:58→21:00)
[2017-05-21] MEDS: predniSONE 10 MG TAB PO SCH ×2 (08:59→21:17)
[2017-05-21] MEDS: GABAPENTIN 300 MG CAP PO SCH ×2 (08:59→21:17)
[2017-05-21] MEDS: FERROUS SULFATE (EC) 325 MG TAB PO SCH (08:59)
[2017-05-21] MEDS: FAMOTIDINE 20 MG TAB PO SCH (08:59)
[2017-05-21] MEDS: DOCUSATE SODIUM 100 MG CAP PO SCH (08:59)
[2017-05-21] MEDS: TIMOLOL 0.5% 5 ML OPH BOTH EYES SCH ×2 (08:59→21:17)
[2017-05-21] MEDS: CHOLECALCIFEROL 1,000 UNIT TAB PO SCH (08:59)
[2017-05-21] MEDS: HYDROCODONE/APAP (5/325) TAB PO PRN ×3 (09:52→22:34)
--- NOTE | 2017-05-21 11:55 | CONS ---
Date/Time of Note Date/Time of Note DATE: 05/21/17 TIME: 11:55 Consult Date/Type/Reason Admit Date/Time May 19, 2017 at 21:00 Initial Consult Date Subjective Feeling better Objective pulm-cta mod assist Vital Signs Date Time Temp Pulse Resp B/P Pulse Ox O2 Delivery O2 Flow Rate FiO2 05/21/17 02:00 98.0 63 18 155/70 97 05/20/17 07:30 Room Air Intake and Output 05/20/17 05/20/17 05/21/17 15:00 23:00 07:00 Intake Total 1610 ml 240 ml Balance 1610 ml 240 ml Results/Medications Result Diagram: 05/20/1761005/20/17610 Medications Current Medications Acetaminophen (Tylenol Tab) 650 mg Q6H PRN PO PAIN LEVEL 1-3 OR FEVER; Start 05/19/17 at 23:07 Acetaminophen/ Hydrocodone Bitart ([place] (5/325)) 1 tab Q6H PRN PO PAIN LEVEL 7 -10 Last administered on 05/21/17 09:52; Admin Dose 1 TAB; Start 05/19/17 at 23 :07 Gabapentin (Neurontin) 600 mg BID PO Last administered on 05/21/17 08:59; Admin Dose 600 MG; Start 05/19/17 at 23:07 Trazodone HCl (Desyrel) 50 mg QHS PO Last administered on 05/20/17 21:20; Admin Dose 50 MG; Start 05/19/17 at 23:07 Latanoprost (Xalatan) 1 drop QHS BOTH EYES Last administered on 05/20/17 21:20 ; Admin Dose 1 DROP; Start 05/19/17 at 23:07 Cholecalciferol (Vitamin D) 1,000 unit DAILY PO Last administered on 05/21/17 08:59; Admin Dose 1,000 UNIT; Start 05/19/17 at 23:07 Morphine Sulfate (morphine) 2 mg Q2H PRN IV pain; Start 05/19/17 at 23:07 Acetaminophen/ Hydrocodone Bitart ([place] (5/325)) 1 tab Q3H PRN PO PAIN Last administered on 05/20/17 22:44; Admin Dose 1 TAB; Start 05/19/17 at 23:07 Famotidine (Pepcid) 20 mg DAILY PO Last administered on 05/21/17 08:59; Admin Dose 20 MG; Start 05/19/17 at 23:07 Prednisone (Prednisone) 10 mg BID PO Last administered on 05/21/17 08:59; Admin Dose 10 MG; Start 05/19/17 at 23:07 Polyethylene Glycol (Miralax) 17 gm BID PO Last administered on 05/21/17 08:58 ; Admin Dose 17 GM; Start 05/19/17 at 23:07 Bisacodyl (Dulcolax) 10 mg DAILY PRN PO CONSTIPATION; Start 05/19/17 at 23:07 Timolol Maleate (Timoptic 0.5%) 1 drop BID BOTH EYES Last administered on 08:59; Admin Dose 1 DROP; Start 05/20/17 at 10:49 Ferrous Sulfate (Ferrous Sulfate (Ec)) 325 mg DAILY PO Last administered on 08:59; Admin Dose 325 MG; Start 05/20/17 at 14:00 Docusate Sodium (Colace) 100 mg DAILY PO Last administered on 05/21/17 08:59; Admin Dose 100 MG; Start 05/20/17 at 14:00 Assessment/Plan Additional Assessment/Plan Rehab- Blunt head trauma with rt frontal scalp hematoma, loss of consciousness in addition to rt wrist Colles fx, s/p incision and drainage and immobilization of the wrist. Tolerating rehab program Rheumatoid arthritis affecting multiple joints including bilateral hands, knees and feet. Right eye blindness. Polymyalgia rheumatica. Hypertension. GEN ZAMBRANO MD May 21, 2017 11:55
--- NOTE | 2017-05-21 13:25 | CONS ---
Date/Time of Note Date/Time of Note DATE: 05/21/17 TIME: 13:24 Assessment/Plan Assessment/Plan Chief Complaint/Hosp Course 81-year-old female with a past medical history of hypertension, low back surgery , hiatal hernia, right eye blindness, rheumatoid arthritis of multiple joints, who sustained blunt head trauma with right frontal scalp hematoma, right wrist fracture for which she had undergone incision and drainage with manipulative reduction and immobilization of the wrist, now admitted to acute rehabilitation unit for further complex interdisciplinary physical therapy. 1. Colles' fracture of the right wrist, severely comminuted and displaced. - Status post open irrigation and debridement with manipulative reduction and immobilization of the right wrist and forearm in a short arm cast on May. -Continue as needed pain medications -PT/OT eval and treatment. 2. Polymyalgia rheumatica. -Continue steroid,PRN pain meds. 3. Amblyopia of the right eye. - Continue eyedrops - Fall precautions. 4. Anemia with iron deficiency. H&H stable. -on oral iron replacement. 5. History of hypertension. - Stable at present. Monitor for now. 6. History of constipation. -Stool softeners and PRN laxatives. Patient was seen in collaboration with . Problems: Consultation Date/Type/Reason Admit Date/Time May 19, 2017 at 21:00 24 HR Interval Summary Free Text/Dictation No acute distress. Exam/Review of Systems Vital Signs Vitals Vital Signs Date Time Temp Pulse Resp B/P Pulse Ox O2 Delivery O2 Flow Rate FiO2 05/21/17 08:00 97.6 60 18 116/64 96 05/20/17 07:30 Room Air Intake and Output 05/20/17 05/20/17 05/21/17 14:59 22:59 06:59 Intake Total 1610 ml 240 ml Balance 1610 ml 240 ml Exam General: Elderly female, not in any acute distress . HEENT: Normocephalic, Atraumatic, No laceration or hematoma; Eyes: PEERL, Conjunctiva clear, Anicteric sclera Neck: Supple without any lymphadenopathy, nontender, no JVD, no carotid bruits, trachea midline, no thyromegaly Cardiac: S1, S2 auscultated, regular rhythm and rate, no mumurs or gallop Pulmonary: Normal respiratory effort. Chest clear to auscultation bilaterally, no adventitious breath sounds GI: Abdomen normal to inspection. Soft, non tender, non- distended, no masses, no rebound tenderness or guarding. Bowel sounds active on all four quadrants Genitourinary: Deferred Extremities: Right arm with cast. No cyanosis/tingling/numbness/edema undercast that can be seen. Pulses [2+] bilaterally. Full ROM on all four extremities. No focal weakness appreciated. Neurologic: Alert to person, place, time, and situation. Affect appropriate, intact sensation. Skin: Clean,dry, and intact. No ecchymosis, no rashes, or lesions Results Result Diagram: 05/20/1761005/20/17 06 Medications Medications Current Medications Acetaminophen (Tylenol Tab) 650 mg Q6H PRN PO PAIN LEVEL 1-3 OR FEVER; Start 05/19/17 at 23:07 Acetaminophen/ Hydrocodone Bitart ([place] (5/325)) 1 tab Q6H PRN PO PAIN LEVEL 7 -10 Last administered on 05/21/17 09:52; Admin Dose 1 TAB; Start 05/19/17 at 23 :07 Gabapentin (Neurontin) 600 mg BID PO Last administered on 05/21/17 08:59; Admin Dose 600 MG; Start 05/19/17 at 23:07 Trazodone HCl (Desyrel) 50 mg QHS PO Last administered on 05/20/17 21:20; Admin Dose 50 MG; Start 05/19/17 at 23:07 Latanoprost (Xalatan) 1 drop QHS BOTH EYES Last administered on 05/20/17 21:20 ; Admin Dose 1 DROP; Start 05/19/17 at 23:07 Cholecalciferol (Vitamin D) 1,000 unit DAILY PO Last administered on 05/21/17 08:59; Admin Dose 1,000 UNIT; Start 05/19/17 at 23:07 Morphine Sulfate (morphine) 2 mg Q2H PRN IV pain; Start 05/19/17 at 23:07 Acetaminophen/ Hydrocodone Bitart ([place] (5/325)) 1 tab Q3H PRN PO PAIN Last administered on 05/20/17 22:44; Admin Dose 1 TAB; Start 05/19/17 at 23:07 Famotidine (Pepcid) 20 mg DAILY PO Last administered on 05/21/17 08:59; Admin Dose 20 MG; Start 05/19/17 at 23:07 Prednisone (Prednisone) 10 mg BID PO Last administered on 05/21/17 08:59; Admin Dose 10 MG; Start 05/19/17 at 23:07 Polyethylene Glycol (Miralax) 17 gm BID PO Last administered on 05/21/17 08:58 ; Admin Dose 17 GM; Start 05/19/17 at 23:07 Bisacodyl (Dulcolax) 10 mg DAILY PRN PO CONSTIPATION; Start 05/19/17 at 23:07 Timolol Maleate (Timoptic 0.5%) 1 drop BID BOTH EYES Last administered on 08:59; Admin Dose 1 DROP; Start 05/20/17 at 10:49 Ferrous Sulfate (Ferrous Sulfate (Ec)) 325 mg DAILY PO Last administered on 08:59; Admin Dose 325 MG; Start 05/20/17 at 14:00 Docusate Sodium (Colace) 100 mg DAILY PO Last administered on 05/21/17 08:59; Admin Dose 100 MG; Start 05/20/17 at 14:00 JANEL ALVAREZ NP May 21, 2017 13:25
--- NOTE | 2017-05-21 18:48 | CONS ---
Date/Time of Note Date/Time of Note DATE: 05/21/17 TIME: 18:45 Assessment/Plan Assessment/Plan Chief Complaint/Hosp Course IMPRESSION: 1. Preoperative evaluation prior to the patient undergoing a wrist open reduction, internal fixation with normal EF by echo, negative troponins, intermediate clinical predictors, going for moderate-risk surgery. Thus, at this time, the patient is without cardiac contraindication to proceeding to the OR on current medications at moderate risk.- Now post-op s/p open I+D/reduction 2. Abnormal electrocardiogram with right bundle branch block. 3. PACs, frequent, and question SVT-no recurrence while on Tele 4. Hypertension-labile 5. Status post fall, mechanical by description. 6. Rheumatoid arthritis, on baseline steroids, now on stress dose steroids. 7. Polymyalgia rheumatica. 8. Macular degeneration. 9. Anemia. Recc: -Continue steroids -Pain control -Add low dose ACEI and follow BP closely -PT/OT Problems: Consultation Date/Type/Reason Admit Date/Time May 19, 2017 at 21:00 Initial Consult Date 05/19/2017 Type of Consultation: cardiology Reason for Consultation HTN/pre-op Referring Provider: JULIÁN MYERS Exam/Review of Systems Vital Signs Vitals Vital Signs Date Time Temp Pulse Resp B/P Pulse Ox O2 Delivery O2 Flow Rate FiO2 05/21/17 08:00 97.6 60 18 116/64 96 05/20/17 07:30 Room Air Intake and Output 05/20/17 05/20/17 05/21/17 15:00 23:00 07:00 Intake Total 1610 ml 240 ml Balance 1610 ml 240 ml Exam Review of Systems: CONSTITUTIONAL: No fevers, chills. PULMONARY: No sob CARDIOVASCULAR: No chest pain/palpitations GASTROINTESTINAL: No nausea/vomiting. GENITOURINARY: No hematuria/dysuria. MUSCULOSKELETAL: No myagias/arthalgias. PSYCHIATRIC: The patient denies depression. NEUROLOGIC: No weakness Constitutional: alert Psych: no complaints Head: normocephalic ENMT: mucosa pink and moist Neck: jvd (9 cm water), supple Respiratory: diminished breath sounds (at bases/B) Cardiovascular: regular rate and rhythm Gastrointestinal: non-tender, soft Musculoskeletal: muscle tone (normal), other (arm in cast with sling) Extremities: pitting pedal edema (bilateral) Neurological: other (No focal deficits) Results Result Diagram: 05/20/17 0611 05/20/17 0611 Medications Medications Current Medications Acetaminophen (Tylenol Tab) 650 mg Q6H PRN PO PAIN LEVEL 1-3 OR FEVER; Start 05/19/17 at 23:07 Acetaminophen/ Hydrocodone Bitart ([place] (5/325)) 1 tab Q6H PRN PO PAIN LEVEL 7 -10 Last administered on 05/21/17 17:50; Admin Dose 1 TAB; Start 05/19/17 at 23 :07 Gabapentin (Neurontin) 600 mg BID PO Last administered on 05/21/17 08:59; Admin Dose 600 MG; Start 05/19/17 at 23:07 Trazodone HCl (Desyrel) 50 mg QHS PO Last administered on 05/20/17 21:20; Admin Dose 50 MG; Start 05/19/17 at 23:07 Latanoprost (Xalatan) 1 drop QHS BOTH EYES Last administered on 05/20/17 21:20 ; Admin Dose 1 DROP; Start 05/19/17 at 23:07 Cholecalciferol (Vitamin D) 1,000 unit DAILY PO Last administered on 05/21/17 08:59; Admin Dose 1,000 UNIT; Start 05/19/17 at 23:07 Morphine Sulfate (morphine) 2 mg Q2H PRN IV pain; Start 05/19/17 at 23:07 Acetaminophen/ Hydrocodone Bitart ([place] (5/325)) 1 tab Q3H PRN PO PAIN Last administered on 05/20/17 22:44; Admin Dose 1 TAB; Start 05/19/17 at 23:07 Famotidine (Pepcid) 20 mg DAILY PO Last administered on 05/21/17 08:59; Admin Dose 20 MG; Start 05/19/17 at 23:07 Prednisone (Prednisone) 10 mg BID PO Last administered on 05/21/17 08:59; Admin Dose 10 MG; Start 05/19/17 at 23:07 Polyethylene Glycol (Miralax) 17 gm BID PO Last administered on 05/21/17 08:58 ; Admin Dose 17 GM; Start 05/19/17 at 23:07 Bisacodyl (Dulcolax) 10 mg DAILY PRN PO CONSTIPATION; Start 05/19/17 at 23:07 Timolol Maleate (Timoptic 0.5%) 1 drop BID BOTH EYES Last administered on 08:59; Admin Dose 1 DROP; Start 05/20/17 at 10:49 Ferrous Sulfate (Ferrous Sulfate (Ec)) 325 mg DAILY PO Last administered on 08:59; Admin Dose 325 MG; Start 05/20/17 at 14:00 Docusate Sodium (Colace) 100 mg DAILY PO Last administered on 05/21/17 08:59; Admin Dose 100 MG; Start 05/20/17 at 14:00 MICH WOODALL May 21, 2017 18:48
[2017-05-21 20:20] VITALS: BP 120/60; RESP 18
[2017-05-21] MEDS: LATANOPROST 0.005% 2.5 ML OPH BOTH EYES SCH (21:17)
[2017-05-21] MEDS: traZODone 50 MG TAB PO SCH (21:17)
--- NOTE | 2017-05-21 22:34 | CONS ---
DATE OF ADMISSION: 05/19/2017 DATE OF CONSULTATION: 05/21/2017 TYPE OF CONSULTATION: Psychological. REFERRING PHYSICIAN: Gen Hightower MD CONSULTING PSYCHOLOGIST: Yan Foster, PhD REASON FOR CONSULTATION: This consultation was requested by Dr. Georgia Hightower in order to evaluate the cognitive and emotional functioning of this patient related to her present medical condition. HISTORY OF PRESENT ILLNESS: The patient is an 81-year-old female. She had a fall resulting in a ri ght frontal scalp hematoma. The patient was seen to have a possible traumatic brain injury. The pa angy also broke her arm. The patient was cleared medically and sent to the acute rehabilitation [facility] for acute multidisciplinary rehabilitation. The patient is motivated to get better and does want to return to her previous level of functioning. The patient is still working at her age and does p eleanor to retire in 6 months. 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 FAMILY AND SOCIAL HISTORY: The patient lives alone in her own home in [place]. The patient does w ant to return there after discharge. The patient does have 3 children, a son living in [facility], a daughter living in [place], and 1 daughter living in [place]. She does say that they have their own lives. They do come around in [facility] from time to time, but they are involved with h er own families. MEDICATIONS: The patient is currently not on any psychotropic medications. SUBSTANCE USE: The patient reports that she does not use alcohol or other drugs. The patient repor ts that she does not smoke. MENTAL STATUS EXAMINATION: APPEARANCE: The patient was seen in her wheelchair. She appears to be of average height and weight . The patient is right-handed. 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 BEHAVIOR: The patient was cooperative during the consultation. The patient did attempt to answer a ll questions presented to her by the interviewer. MOOD AND AFFECT: The patient's mood appears to be just slightly depressed. Affect did appear to be slightly anxious. PERCEPTION: The patient reports no hallucinations or delusions. The patient was alert to person, p lace, situation and time. MEMORY AND COGNITION: The patient's memory and cognition appear to be basically intact. She was ab le to recall recent and remote events. She did know who the vice president payer is, who the governor of the state is, and who [facility]. She had a little problem with the m ayor of the city, but did come up with the name eventually. Patient did know the month and the year . The patient was wrong about the date, but that is very common in the hospital setting. The patie nt was also unable to come up with the hospital name. She was, however, able to do 5 serial-7 subtr actions from 100 without error and she was able to spell the word "world" backwards. Overall for he r age, her cognition appears to be intact. INTELLIGENCE: Intelligence appears to fall in the above-average range. INSIGHT: Good. JUDGMENT: Good. THOUGHT CONTENT: The patient is concerned about her present medical condition. The patient does wa nt to return to her previous level of functioning. The patient is concerned about her overall healt h and how she can take better care of herself. DISCUSSION: The patient can likely benefit from some cognitive/behavioral psychotherapy while she i s on the unit. Psychotherapy would focus on her underlying level of depression regarding her medica l problems and how she is going to deal with her fci. 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 Thank you very much, Dr. Georgia Hightower, for referring this individual. Please do not hesitate to ca ll if you have additional questions. Dictated By: YAN FOSTER PHD BECK/NIKO Conf#: [id number] DID#: [id number] CC: GEN HIGHTOWER MD;*End*
[2017-05-22 02:00] VITALS: BP 125/70; RESP 18
[2017-05-22 07:00] VITALS: BP 161/72; RESP 18
[2017-05-22 08:15] VITALS: BP 161/72; PULSE 64; RESP 20
[2017-05-22] MEDS: POLYETHYLENE GLYCOL 17 GM PACKET PO SCH ×2 (09:00→20:14)
[2017-05-22] MEDS: TIMOLOL 0.5% 5 ML OPH BOTH EYES SCH ×2 (09:22→20:14)
[2017-05-22] MEDS: BENAZEPRIL 10 MG TAB PO SCH (09:23)
[2017-05-22] MEDS: CHOLECALCIFEROL 1,000 UNIT TAB PO SCH (09:23)
[2017-05-22] MEDS: HYDROCODONE/APAP (5/325) TAB PO PRN ×3 (09:23→20:25)
[2017-05-22] MEDS: predniSONE 10 MG TAB PO SCH ×2 (09:23→20:14)
[2017-05-22] MEDS: GABAPENTIN 300 MG CAP PO SCH ×2 (09:23→20:14)
[2017-05-22] MEDS: DOCUSATE SODIUM 100 MG CAP PO SCH (09:24)
[2017-05-22] MEDS: FERROUS SULFATE (EC) 325 MG TAB PO SCH (09:24)
[2017-05-22] MEDS: FAMOTIDINE 20 MG TAB PO SCH ×2 (09:24→20:14)
--- NOTE | 2017-05-22 09:38 | CONS ---
Date/Time of Note Date/Time of Note DATE: 05/22/17 TIME: 09:38 Consult Date/Type/Reason Admit Date/Time May 19, 2017 at 21:00 Type of Consultation: cardiology Ordering Provider: JULIÁN MYERS Subjective Patient motivated for all activities Objective Lungs clear abdomen soft Minimal to moderate assist Vital Signs Date Time Temp Pulse Resp B/P Pulse Ox O2 Delivery O2 Flow Rate FiO2 05/22/17 08:15 98.4 64 20 161/72 96 Room Air Intake and Output 05/21/17 05/21/17 05/22/17 15:00 23:00 07:00 Intake Total 1400 ml 360 ml Output Total 1100 ml Balance 300 ml 360 ml Results/Medications Result Diagram: 05/20/1711 05/20/17 0611 Medications Current Medications Acetaminophen (Tylenol Tab) 650 mg Q6H PRN PO PAIN LEVEL 1-3 OR FEVER; Start 05/19/17 at 23:07 Acetaminophen/ Hydrocodone Bitart ([place] (5/325)) 1 tab Q6H PRN PO PAIN LEVEL 7 -10 Last administered on 05/21/17 17:50; Admin Dose 1 TAB; Start 05/19/17 at 23 :07 Gabapentin (Neurontin) 600 mg BID PO Last administered on 05/22/17 09:23; Admin Dose 600 MG; Start 05/19/17 at 23:07 Trazodone HCl (Desyrel) 50 mg QHS PO Last administered on 05/21/17 21:17; Admin Dose 50 MG; Start 05/19/17 at 23:07 Latanoprost (Xalatan) 1 drop QHS BOTH EYES Last administered on 05/21/17 21:17 ; Admin Dose 1 DROP; Start 05/19/17 at 23:07 Cholecalciferol (Vitamin D) 1,000 unit DAILY PO Last administered on 05/22/17 09:23; Admin Dose 1,000 UNIT; Start 05/19/17 at 23:07 Morphine Sulfate (morphine) 2 mg Q2H PRN IV pain; Start 05/19/17 at 23:07 Acetaminophen/ Hydrocodone Bitart ([place] (5/325)) 1 tab Q3H PRN PO PAIN Last administered on 05/22/17 09:23; Admin Dose 1 TAB; Start 05/19/17 at 23:07 Famotidine (Pepcid) 20 mg DAILY PO Last administered on 05/22/17 09:24; Admin Dose 20 MG; Start 05/19/17 at 23:07 Prednisone (Prednisone) 10 mg BID PO Last administered on 05/22/17 09:23; Admin Dose 10 MG; Start 05/19/17 at 23:07 Polyethylene Glycol (Miralax) 17 gm BID PO Last administered on 05/21/17 08:58 ; Admin Dose 17 GM; Start 05/19/17 at 23:07 Bisacodyl (Dulcolax) 10 mg DAILY PRN PO CONSTIPATION; Start 05/19/17 at 23:07 Timolol Maleate (Timoptic 0.5%) 1 drop BID BOTH EYES Last administered on 09:22; Admin Dose 1 DROP; Start 05/20/17 at 10:49 Ferrous Sulfate (Ferrous Sulfate (Ec)) 325 mg DAILY PO Last administered on 09:24; Admin Dose 325 MG; Start 05/20/17 at 14:00 Docusate Sodium (Colace) 100 mg DAILY PO Last administered on 05/22/17 09:24; Admin Dose 100 MG; Start 05/20/17 at 14:00 Benazepril HCl (Lotensin) 10 mg DAILY PO Last administered on 05/22/17 09:23; Admin Dose 10 MG; Start 05/22/17 at 09:00 Assessment/Plan Additional Assessment/Plan Rehab- Blunt head trauma with rt frontal scalp hematoma, loss of consciousness in addition to rt wrist Colles fx, s/p incision and drainage and immobilization of the wrist. Continue rehab program Rheumatoid arthritis affecting multiple joints including bilateral hands, knees and feet. Right eye blindness. Polymyalgia rheumatica. Hypertension. GEN ZAMBRANO MD May 22, 2017 09:38
--- NOTE | 2017-05-22 15:41 | CONS ---
Date/Time of Note Date/Time of Note DATE: 05/22/17 TIME: 15:39 Assessment/Plan Assessment/Plan Chief Complaint/Hosp Course 81-year-old female with a past medical history of hypertension, low back surgery , hiatal hernia, right eye blindness, rheumatoid arthritis of multiple joints, who sustained blunt head trauma with right frontal scalp hematoma, right wrist fracture for which she had undergone incision and drainage with manipulative reduction and immobilization of the wrist, now admitted to acute rehabilitation unit for further complex interdisciplinary physical therapy. 1. Colles' fracture of the right wrist, severely comminuted and displaced. - Status post open irrigation and debridement with manipulative reduction and immobilization of the right wrist and forearm in a short arm cast on May. -Continue as needed pain medications -PT/OT eval and treatment. 2. Polymyalgia rheumatica. -Continue steroid,PRN pain meds. 3. Amblyopia of the right eye. - Continue eyedrops - Fall precautions. 4. Anemia with iron deficiency. H&H stable. -on oral iron replacement. 5. Essential hypertension. -Cardiology on board and started on RENAY inhibitors. Will monitor. 6. History of constipation. -Stool softeners and PRN laxatives. 7.GERD with hiatal hernia. -Pepcid HS Patient was seen in collaboration with . Problems: Consultation Date/Type/Reason Admit Date/Time May 19, 2017 at 21:00 Type of Consultation: cardiology Referring Provider: JULIÁN MYERS 24 HR Interval Summary Free Text/Dictation No acute distress. Blood pressure slightly high. Exam/Review of Systems Vital Signs Vitals Vital Signs Date Time Temp Pulse Resp B/P Pulse Ox O2 Delivery O2 Flow Rate FiO2 05/22/17 08:15 98.4 64 20 161/72 96 Room Air Intake and Output 05/21/17 05/21/17 05/22/17 15:00 23:00 07:00 Intake Total 1400 ml 360 ml Output Total 1100 ml Balance 300 ml 360 ml Exam General: Elderly female, not in any acute distress . HEENT: Normocephalic, Atraumatic, No laceration or hematoma; Eyes: PEERL, Conjunctiva clear, Anicteric sclera Neck: Supple without any lymphadenopathy, nontender, no JVD, no carotid bruits, trachea midline, no thyromegaly Cardiac: S1, S2 auscultated, regular rhythm and rate, no mumurs or gallop Pulmonary: Normal respiratory effort. Chest clear to auscultation bilaterally, no adventitious breath sounds GI: Abdomen normal to inspection. Soft, non tender, non- distended, no masses, no rebound tenderness or guarding. Bowel sounds active on all four quadrants Genitourinary: Deferred Extremities: Right arm with cast. No cyanosis/tingling/numbness/edema undercast that can be seen. Pulses [2+] bilaterally. Full ROM on all four extremities. No focal weakness appreciated. Neurologic: Alert to person, place, time, and situation. Affect appropriate, intact sensation. Skin: Clean,dry, and intact. No ecchymosis, no rashes, or lesions Results Result Diagram: 05/20/1711 05/20/17 0611 Medications Medications Current Medications Acetaminophen (Tylenol Tab) 650 mg Q6H PRN PO PAIN LEVEL 1-3 OR FEVER; Start 05/19/17 at 23:07 Acetaminophen/ Hydrocodone Bitart ([place] (5/325)) 1 tab Q6H PRN PO PAIN LEVEL 7 -10 Last administered on 05/21/17 17:50; Admin Dose 1 TAB; Start 05/19/17 at 23 :07 Gabapentin (Neurontin) 600 mg BID PO Last administered on 05/22/17 09:23; Admin Dose 600 MG; Start 05/19/17 at 23:07 Trazodone HCl (Desyrel) 50 mg QHS PO Last administered on 05/21/17 21:17; Admin Dose 50 MG; Start 05/19/17 at 23:07 Latanoprost (Xalatan) 1 drop QHS BOTH EYES Last administered on 05/21/17 21:17 ; Admin Dose 1 DROP; Start 05/19/17 at 23:07 Cholecalciferol (Vitamin D) 1,000 unit DAILY PO Last administered on 05/22/17 09:23; Admin Dose 1,000 UNIT; Start 05/19/17 at 23:07 Morphine Sulfate (morphine) 2 mg Q2H PRN IV pain; Start 05/19/17 at 23:07 Acetaminophen/ Hydrocodone Bitart ([place] (5/325)) 1 tab Q3H PRN PO PAIN Last administered on 11/9/17at 13:01; Admin Dose 1 TAB; Start 05/19/17 at 23:07 Famotidine (Pepcid) 20 mg DAILY PO Last administered on 05/22/17 09:24; Admin Dose 20 MG; Start 05/19/17 at 23:07 Prednisone (Prednisone) 10 mg BID PO Last administered on 05/22/17 09:23; Admin Dose 10 MG; Start 05/19/17 at 23:07 Polyethylene Glycol (Miralax) 17 gm BID PO Last administered on 05/21/17 08:58 ; Admin Dose 17 GM; Start 05/19/17 at 23:07 Bisacodyl (Dulcolax) 10 mg DAILY PRN PO CONSTIPATION; Start 05/19/17 at 23:07 Timolol Maleate (Timoptic 0.5%) 1 drop BID BOTH EYES Last administered on 09:22; Admin Dose 1 DROP; Start 05/20/17 at 10:49 Ferrous Sulfate (Ferrous Sulfate (Ec)) 325 mg DAILY PO Last administered on 09:24; Admin Dose 325 MG; Start 05/20/17 at 14:00 Docusate Sodium (Colace) 100 mg DAILY PO Last administered on 05/22/17 09:24; Admin Dose 100 MG; Start 05/20/17 at 14:00 Benazepril HCl (Lotensin) 10 mg DAILY PO Last administered on 05/22/17 09:23; Admin Dose 10 MG; Start 05/22/17 at 09:00 JANEL ALVAREZ NP May 22, 2017 15:41
[2017-05-22 19:36] VITALS: BP 134/61; RESP 18
--- NOTE | 2017-05-22 19:49 | CONS ---
Date/Time of Note Date/Time of Note DATE: 05/22/17 TIME: 19:47 Assessment/Plan Assessment/Plan Chief Complaint/Hosp Course IMPRESSION: 1. Preoperative evaluation prior to the patient undergoing a wrist open reduction, internal fixation with normal EF by echo, negative troponins, intermediate clinical predictors, going for moderate-risk surgery. Thus, at this time, the patient is without cardiac contraindication to proceeding to the OR on current medications at moderate risk.- Now post-op s/p open I+D/reduction 2. Abnormal electrocardiogram with right bundle branch block. 3. PACs, frequent, and question SVT-no recurrence while on Tele 4. Hypertension-remains labile 5. Status post fall, mechanical by description. 6. Rheumatoid arthritis, on baseline steroids, now on stress dose steroids. 7. Polymyalgia rheumatica. 8. Macular degeneration. 9. Anemia. Recc: -Continue steroids -Pain control -Continue ACEI -PT/OT Problems: Consultation Date/Type/Reason Admit Date/Time May 19, 2017 at 21:00 Initial Consult Date 05/19/2017 Type of Consultation: cardiology Reason for Consultation HTN Referring Provider: JULIÁN MYERS Exam/Review of Systems Vital Signs Vitals Vital Signs Date Time Temp Pulse Resp B/P Pulse Ox O2 Delivery O2 Flow Rate FiO2 05/22/17 19:36 98.5 71 18 134/61 94 05/22/17 08:15 Room Air Intake and Output 05/21/17 05/21/17 05/22/17 14:59 22:59 06:59 Intake Total 1400 ml 360 ml Output Total 1100 ml Balance 300 ml 360 ml Exam Review of Systems: CONSTITUTIONAL: No fevers, chills. PULMONARY: No sob CARDIOVASCULAR: No chest pain/palpitations GASTROINTESTINAL: No nausea/vomiting. GENITOURINARY: No hematuria/dysuria. MUSCULOSKELETAL: No myagias/arthalgias. PSYCHIATRIC: The patient denies depression. NEUROLOGIC: No weakness Constitutional: alert Psych: no complaints Head: normocephalic ENMT: mucosa pink and moist Neck: jvd (9 cm water), supple Respiratory: diminished breath sounds Cardiovascular: regular rate and rhythm Gastrointestinal: non-tender, soft Musculoskeletal: muscle tone (normal) Extremities: edema (none), other (arm in sling) Neurological: other (No focal deficits) Results Result Diagram: 05/20/17 0611 05/20/17 0611 Medications Medications Current Medications Acetaminophen (Tylenol Tab) 650 mg Q6H PRN PO PAIN LEVEL 1-3 OR FEVER; Start 05/19/17 at 23:07 Acetaminophen/ Hydrocodone Bitart ([place] (5/325)) 1 tab Q6H PRN PO PAIN LEVEL 7 -10 Last administered on 05/21/17 17:50; Admin Dose 1 TAB; Start 05/19/17 at 23 :07 Gabapentin (Neurontin) 600 mg BID PO Last administered on 05/22/17 09:23; Admin Dose 600 MG; Start 05/19/17 at 23:07 Trazodone HCl (Desyrel) 50 mg QHS PO Last administered on 05/21/17 21:17; Admin Dose 50 MG; Start 05/19/17 at 23:07 Latanoprost (Xalatan) 1 drop QHS BOTH EYES Last administered on 05/21/17 21:17 ; Admin Dose 1 DROP; Start 05/19/17 at 23:07 Cholecalciferol (Vitamin D) 1,000 unit DAILY PO Last administered on 05/22/17 09:23; Admin Dose 1,000 UNIT; Start 05/19/17 at 23:07 Morphine Sulfate (morphine) 2 mg Q2H PRN IV pain; Start 05/19/17 at 23:07 Acetaminophen/ Hydrocodone Bitart ([place] (5/325)) 1 tab Q3H PRN PO PAIN Last administered on 05/22/17 13:01; Admin Dose 1 TAB; Start 05/19/17 at 23:07 Prednisone (Prednisone) 10 mg BID PO Last administered on 05/22/17 09:23; Admin Dose 10 MG; Start 05/19/17 at 23:07 Polyethylene Glycol (Miralax) 17 gm BID PO Last administered on 05/21/17 08:58 ; Admin Dose 17 GM; Start 05/19/17 at 23:07 Bisacodyl (Dulcolax) 10 mg DAILY PRN PO CONSTIPATION; Start 05/19/17 at 23:07 Timolol Maleate (Timoptic 0.5%) 1 drop BID BOTH EYES Last administered on 09:22; Admin Dose 1 DROP; Start 05/20/17 at 10:49 Ferrous Sulfate (Ferrous Sulfate (Ec)) 325 mg DAILY PO Last administered on 09:24; Admin Dose 325 MG; Start 05/20/17 at 14:00 Docusate Sodium (Colace) 100 mg DAILY PO Last administered on 05/22/17 09:24; Admin Dose 100 MG; Start 05/20/17 at 14:00 Benazepril HCl (Lotensin) 10 mg DAILY PO Last administered on 05/22/17 09:23; Admin Dose 10 MG; Start 05/22/17 at 09:00 Famotidine (Pepcid) 20 mg HS PO ; Start 05/22/17 at 21:00 MICH WOODALL May 22, 2017 19:49
[2017-05-22] MEDS: LATANOPROST 0.005% 2.5 ML OPH BOTH EYES SCH (20:14)
[2017-05-22] MEDS: traZODone 50 MG TAB PO SCH (20:14)
[2017-05-23 03:19] VITALS: BP 142/64; RESP 18
[2017-05-23] MEDS: HYDROCODONE/APAP (5/325) TAB PO PRN ×3 (06:49→21:42)
[2017-05-23] MEDS: CHOLECALCIFEROL 1,000 UNIT TAB PO SCH (09:19)
[2017-05-23] MEDS: DOCUSATE SODIUM 100 MG CAP PO SCH (09:19)
[2017-05-23] MEDS: predniSONE 10 MG TAB PO SCH ×2 (09:19→20:34)
[2017-05-23] MEDS: FERROUS SULFATE (EC) 325 MG TAB PO SCH (09:19)
[2017-05-23] MEDS: TIMOLOL 0.5% 5 ML OPH BOTH EYES SCH (09:19)
[2017-05-23] MEDS: GABAPENTIN 300 MG CAP PO SCH ×2 (09:19→20:33)
[2017-05-23] MEDS: BENAZEPRIL 10 MG TAB PO SCH (09:20)
[2017-05-23] MEDS: POLYETHYLENE GLYCOL 17 GM PACKET PO SCH ×3 (09:21→20:40)
[2017-05-23 09:24] VITALS: BP 139/59; RESP 20
--- NOTE | 2017-05-23 11:10 | CONS ---
Date/Time of Note Date/Time of Note DATE: 05/23/17 TIME: 11:09 Consult Date/Type/Reason Admit Date/Time May 19, 2017 at 21:00 Type of Consultation: cardiology Ordering Provider: JULIÁN MYERS Subjective Patient is pleased with her progress Objective Lungs clear abdomen soft Minimal assist Vital Signs Date Time Temp Pulse Resp B/P Pulse Ox O2 Delivery O2 Flow Rate FiO2 05/23/17 09:24 97.7 71 20 139/59 99 05/22/17 08:15 Room Air Intake and Output 05/22/17 05/22/17 05/23/17 15:00 23:00 07:00 Intake Total 1000 ml Output Total 400 ml 150 ml Balance 600 ml -150 ml Results/Medications Result Diagram: 05/20/1761005/20/17 0611 Medications Current Medications Acetaminophen (Tylenol Tab) 650 mg Q6H PRN PO PAIN LEVEL 1-3 OR FEVER; Start 05/19/17 at 23:07 Acetaminophen/ Hydrocodone Bitart ([place] (5/325)) 1 tab Q6H PRN PO PAIN LEVEL 7 -10 Last administered on 05/21/17 17:50; Admin Dose 1 TAB; Start 05/19/17 at 23 :07 Gabapentin (Neurontin) 600 mg BID PO Last administered on 05/23/17 09:19; Admin Dose 600 MG; Start 05/19/17 at 23:07 Trazodone HCl (Desyrel) 50 mg QHS PO Last administered on 05/22/17 20:14; Admin Dose 50 MG; Start 05/19/17 at 23:07 Latanoprost (Xalatan) 1 drop QHS BOTH EYES Last administered on 05/22/17 20:14 ; Admin Dose 1 DROP; Start 05/19/17 at 23:07 Cholecalciferol (Vitamin D) 1,000 unit DAILY PO Last administered on 09:19; Admin Dose 1,000 UNIT; Start 05/19/17 at 23:07 Morphine Sulfate (morphine) 2 mg Q2H PRN IV pain; Start 05/19/17 at 23:07 Acetaminophen/ Hydrocodone Bitart ([place] (5/325)) 1 tab Q3H PRN PO PAIN Last administered on 05/23/17 06:49; Admin Dose 1 TAB; Start 05/19/17 at 23:07 Prednisone (Prednisone) 10 mg BID PO Last administered on 05/23/17 09:19; Admin Dose 10 MG; Start 05/19/17 at 23:07 Polyethylene Glycol (Miralax) 17 gm BID PO Last administered on 05/23/17 09: 21; Admin Dose 17 GM; Start 05/19/17 at 23:07 Bisacodyl (Dulcolax) 10 mg DAILY PRN PO CONSTIPATION; Start 05/19/17 at 23:07 Timolol Maleate (Timoptic 0.5%) 1 drop BID BOTH EYES Last administered on 05/23 09:19; Admin Dose 1 DROP; Start 05/20/17 at 10:49 Ferrous Sulfate (Ferrous Sulfate (Ec)) 325 mg DAILY PO Last administered on 09:19; Admin Dose 325 MG; Start 05/20/17 at 14:00 Docusate Sodium (Colace) 100 mg DAILY PO Last administered on 05/23/17 09:19 ; Admin Dose 100 MG; Start 05/20/17 at 14:00 Benazepril HCl (Lotensin) 10 mg DAILY PO Last administered on 05/23/17 09:20 ; Admin Dose 10 MG; Start 05/22/17 at 09:00 Famotidine (Pepcid) 20 mg HS PO Last administered on 05/22/17 20:14; Admin Dose 20 MG; Start 05/22/17 at 21:00 Assessment/Plan Additional Assessment/Plan Rehab- Blunt head trauma with rt frontal scalp hematoma, loss of consciousness in addition to rt wrist Colles fx, s/p incision and drainage and immobilization of the wrist. Continue rehab interdisciplinary program Rheumatoid arthritis affecting multiple joints including bilateral hands, knees and feet. Right eye blindness. Polymyalgia rheumatica. Hypertension. GEN ZAMBRANO MD May 23, 2017 11:09
--- NOTE | 2017-05-23 14:23 | CONS ---
Date/Time of Note Date/Time of Note DATE: 05/23/17 TIME: 14:19 Assessment/Plan Assessment/Plan Chief Complaint/Hosp Course 81-year-old female with a past medical history of hypertension, low back surgery , hiatal hernia, right eye blindness, rheumatoid arthritis of multiple joints, who sustained blunt head trauma with right frontal scalp hematoma, right wrist fracture for which she had undergone incision and drainage with manipulative reduction and immobilization of the wrist, now admitted to acute rehabilitation unit for further complex interdisciplinary physical therapy. 1. Colles' fracture of the right wrist, severely comminuted and displaced. - Status post open irrigation and debridement with manipulative reduction and immobilization of the right wrist and forearm in a short arm cast on May. -Continue as needed pain medications -PT/OT eval and treatment. 2. Polymyalgia rheumatica. -Continue steroid,PRN pain meds. 3. Amblyopia of the right eye. - Continue eyedrops - Fall precautions. 4. Anemia with iron deficiency. H&H stable. -on oral iron replacement. 5. Essential hypertension. -Cardiology on board and started on RENAY inhibitors. -We will also add hydrochlorothiazide 12.5 mg which she normally takes at home for peripheral edema. 6. History of constipation. -Stool softeners and PRN laxatives. 7.GERD with hiatal hernia. -Pepcid HS 8. Peripheral edema, rule out DVT. -Obtain venous duplex. Resume thiazide diuretics. Patient was seen in collaboration with . Problems: Consultation Date/Type/Reason Admit Date/Time May 19, 2017 at 21:00 Type of Consultation: cardiology Referring Provider: JULIÁN MYERS 24 HR Interval Summary Free Text/Dictation Patient complains of increased swelling on left lower leg. There is no pain. She also reports that she takes diuretics at home which was not continued in the hospital. Tolerates physical therapy. Exam/Review of Systems Vital Signs Vitals Vital Signs Date Time Temp Pulse Resp B/P Pulse Ox O2 Delivery O2 Flow Rate FiO2 05/23/17 09:24 97.7 71 20 139/59 99 05/22/17 08:15 Room Air Intake and Output 05/22/17 05/22/17 05/23/17 15:00 23:00 07:00 Intake Total 1000 ml Output Total 400 ml 150 ml Balance 600 ml -150 ml Exam General: Elderly female, not in any acute distress . HEENT: Normocephalic, Atraumatic, No laceration or hematoma; Eyes: PEERL, Conjunctiva clear, Anicteric sclera Neck: Supple without any lymphadenopathy, nontender, no JVD, no carotid bruits, trachea midline, no thyromegaly Cardiac: S1, S2 auscultated, regular rhythm and rate, no mumurs or gallop Pulmonary: Normal respiratory effort. Chest clear to auscultation bilaterally, no adventitious breath sounds GI: Abdomen normal to inspection. Soft, non tender, non- distended, no masses, no rebound tenderness or guarding. Bowel sounds active on all four quadrants Genitourinary: Deferred Extremities: With trace edema to bilateral lower extremities, left greater than right. Right arm with cast. No cyanosis/tingling/numbness/edema undercast that can be seen. Pulses [2+] bilaterally. Full ROM on all four extremities. No focal weakness appreciated. Neurologic: Alert to person, place, time, and situation. Affect appropriate, intact sensation. Skin: Clean,dry, and intact. No ecchymosis, no rashes, or lesions Results Result Diagram: 05/20/1761005/20/17 0611 Medications Medications Current Medications Acetaminophen (Tylenol Tab) 650 mg Q6H PRN PO PAIN LEVEL 1-3 OR FEVER; Start 05/19/17 at 23:07 Acetaminophen/ Hydrocodone Bitart ([place] (5/325)) 1 tab Q6H PRN PO PAIN LEVEL 7 -10 Last administered on 05/21/17 17:50; Admin Dose 1 TAB; Start 05/19/17 at 23 :07 Gabapentin (Neurontin) 600 mg BID PO Last administered on 05/23/17 09:19; Admin Dose 600 MG; Start 05/19/17 at 23:07 Trazodone HCl (Desyrel) 50 mg QHS PO Last administered on 05/22/17 20:14; Admin Dose 50 MG; Start 05/19/17 at 23:07 Latanoprost (Xalatan) 1 drop QHS BOTH EYES Last administered on 05/22/17 20:14 ; Admin Dose 1 DROP; Start 05/19/17 at 23:07 Cholecalciferol (Vitamin D) 1,000 unit DAILY PO Last administered on 09:19; Admin Dose 1,000 UNIT; Start 05/19/17 at 23:07 Morphine Sulfate (morphine) 2 mg Q2H PRN IV pain; Start 05/19/17 at 23:07 Acetaminophen/ Hydrocodone Bitart ([place] (5/325)) 1 tab Q3H PRN PO PAIN Last administered on 05/23/17 13:09; Admin Dose 1 TAB; Start 05/19/17 at 23:07 Prednisone (Prednisone) 10 mg BID PO Last administered on 05/23/17 09:19; Admin Dose 10 MG; Start 05/19/17 at 23:07 Polyethylene Glycol (Miralax) 17 gm BID PO Last administered on 05/23/17 09: 21; Admin Dose 17 GM; Start 05/19/17 at 23:07 Bisacodyl (Dulcolax) 10 mg DAILY PRN PO CONSTIPATION; Start 05/19/17 at 23:07 Timolol Maleate (Timoptic 0.5%) 1 drop BID BOTH EYES Last administered on 05/23 09:19; Admin Dose 1 DROP; Start 05/20/17 at 10:49 Ferrous Sulfate (Ferrous Sulfate (Ec)) 325 mg DAILY PO Last administered on 09:19; Admin Dose 325 MG; Start 05/20/17 at 14:00 Docusate Sodium (Colace) 100 mg DAILY PO Last administered on 05/23/17 09:19 ; Admin Dose 100 MG; Start 05/20/17 at 14:00 Benazepril HCl (Lotensin) 10 mg DAILY PO Last administered on 05/23/17 09:20 ; Admin Dose 10 MG; Start 05/22/17 at 09:00 Famotidine (Pepcid) 20 mg HS PO Last administered on 05/22/17 20:14; Admin Dose 20 MG; Start 05/22/17 at 21:00 JANEL ALVAREZ NP May 23, 2017 14:23
--- NOTE | 2017-05-23 14:45 | CONS ---
Date/Time of Note Date/Time of Note DATE: 05/23/17 TIME: 14:43 Assessment/Plan Assessment/Plan Additional Assessment/Plan 1. Preoperative evaluation prior to the patient undergoing a wrist open reduction, internal fixation with normal EF by echo, negative troponins, intermediate clinical predictors, going for moderate-risk surgery. Thus, at this time, the patient is without cardiac contraindication to proceeding to the OR on current medications at moderate risk.- Now post-op s/p open I+D/reduction - did well postop, in rehab now - no CP, 2. Abnormal electrocardiogram with right bundle branch block- no intervention planned. 3. PACs, frequent, and question SVT - now in sinus 4. Hypertension-currently well controlled - better now - with trace LE edema - resume small dose diuretic now. 5. Status post fall, mechanical by description. 6. Rheumatoid arthritis, on baseline steroids, now on stress dose steroids. 7. Polymyalgia rheumatica. 8. Macular degeneration. 9. Anemia. Consultation Date/Type/Reason Admit Date/Time May 19, 2017 at 21:00 Initial Consult Date Type of Consultation: cardiology Referring Provider: JULIÁN MYERS 24 HR Interval Summary Free Text/Dictation With increased ambulation - better now - with trace LE edema - resume small dose diuretic now. ROS: No fever, no chills, no nausea, no vomiting, no diarrhea/constipation No recent weight changes No chest pain, no PND, no orthopnea No dizziness, blurred vision No thirst, no heat or cold intolerance Exam/Review of Systems Vital Signs Vitals Vital Signs Date Time Temp Pulse Resp B/P Pulse Ox O2 Delivery O2 Flow Rate FiO2 05/23/17 09:24 97.7 71 20 139/59 99 05/22/17 08:15 Room Air Intake and Output 05/22/17 05/22/17 05/23/17 14:59 22:59 06:59 Intake Total 1000 ml Output Total 400 ml 150 ml Balance 600 ml -150 ml Exam General: WN/WD/NAD, AOx 2-3 HEENT: Unicetric/atraumatic/EOMI (follow commands) NECK: JVD elevated, no thyromegaly Lymph: no lymphadenopathy HEART: regular with no S3, II/ systolic murmur at apex LUNGS: Coarse sounds ABD: soft, NT, ND, +BS : Intact Neuro: non focal SKIN: chronic changes EXT: trace edema, UE brace Results Result Diagram: 05/20/1761005/20/17610 Medications Medications Current Medications Acetaminophen (Tylenol Tab) 650 mg Q6H PRN PO PAIN LEVEL 1-3 OR FEVER; Start 05/19/17 at 23:07 Acetaminophen/ Hydrocodone Bitart ([place] (5/325)) 1 tab Q6H PRN PO PAIN LEVEL 7 -10 Last administered on 05/21/17 17:50; Admin Dose 1 TAB; Start 05/19/17 at 23 :07 Gabapentin (Neurontin) 600 mg BID PO Last administered on 05/23/17 09:19; Admin Dose 600 MG; Start 05/19/17 at 23:07 Trazodone HCl (Desyrel) 50 mg QHS PO Last administered on 05/22/17 20:14; Admin Dose 50 MG; Start 05/19/17 at 23:07 Latanoprost (Xalatan) 1 drop QHS BOTH EYES Last administered on 05/22/17 20:14 ; Admin Dose 1 DROP; Start 05/19/17 at 23:07 Cholecalciferol (Vitamin D) 1,000 unit DAILY PO Last administered on 09:19; Admin Dose 1,000 UNIT; Start 05/19/17 at 23:07 Morphine Sulfate (morphine) 2 mg Q2H PRN IV pain; Start 05/19/17 at 23:07 Acetaminophen/ Hydrocodone Bitart ([place] (5/325)) 1 tab Q3H PRN PO PAIN Last administered on 05/23/17 13:09; Admin Dose 1 TAB; Start 05/19/17 at 23:07 Prednisone (Prednisone) 10 mg BID PO Last administered on 05/23/17 09:19; Admin Dose 10 MG; Start 05/19/17 at 23:07 Polyethylene Glycol (Miralax) 17 gm BID PO Last administered on 05/23/17 09: 21; Admin Dose 17 GM; Start 05/19/17 at 23:07 Bisacodyl (Dulcolax) 10 mg DAILY PRN PO CONSTIPATION; Start 05/19/17 at 23:07 Timolol Maleate (Timoptic 0.5%) 1 drop BID BOTH EYES Last administered on 05/23 09:19; Admin Dose 1 DROP; Start 05/20/17 at 10:49 Ferrous Sulfate (Ferrous Sulfate (Ec)) 325 mg DAILY PO Last administered on 09:19; Admin Dose 325 MG; Start 05/20/17 at 14:00 Docusate Sodium (Colace) 100 mg DAILY PO Last administered on 05/23/17 09:19 ; Admin Dose 100 MG; Start 05/20/17 at 14:00 Benazepril HCl (Lotensin) 10 mg DAILY PO Last administered on 05/23/17 09:20 ; Admin Dose 10 MG; Start 05/22/17 at 09:00 Famotidine (Pepcid) 20 mg HS PO Last administered on 05/22/17 20:14; Admin Dose 20 MG; Start 05/22/17 at 21:00 Hydrochlorothiazide (Hydrochlorothiazide) 12.5 mg DAILY PO ; Start 05/23/17 at 14:30 SHERIE BHANDARI MD May 23, 2017 14:45
--- NOTE | 2017-05-23 17:29 | RADRPT ---
PROCEDURE: US bilateral lower extremity veins. CLINICAL INDICATION: Bilateral leg pain and swelling. TECHNIQUE: Multiple longitudinal and transverse images of the bilateral lower extremity veins were obtained with estrella scale and color Doppler imaging. The common femoral vein, femoral vein, and popl iteal vein were evaluated. 2D grayscale measurements with compression sonography, color Doppler, and pulsed Doppler with augmentation. COMPARISON: No prior studies are available for comparison. FINDINGS: The bilateral common femoral, femoral and popliteal veins are normally compressible throughout. Col or flow demonstrates normal filling of the vessels. Normal waveforms are visualized and there is no rmal response to augmentation. IMPRESSION: 1. No evidence of deep vein thrombosis involving either lower extremity. RPTAT: QQ .Job Thomas MD, MD Date Time Electronically viewed and signed by .Job Thomas MD, on 05/23/2017 17:29 .R/
[2017-05-23] MEDS: HYDROCHLOROTHIAZIDE 12.5 MG CAP PO SCH (17:49)
[2017-05-23 20:00] VITALS: BP 142/63; RESP 18
[2017-05-23] MEDS: LATANOPROST 0.005% 2.5 ML OPH BOTH EYES SCH (20:33)
[2017-05-23] MEDS: traZODone 50 MG TAB PO SCH (20:34)
[2017-05-23] MEDS: FAMOTIDINE 20 MG TAB PO SCH (20:34)
[2017-05-24 02:00] VITALS: BP 128/72; RESP 18
[2017-05-24] MEDS: HYDROCODONE/APAP (5/325) TAB PO PRN ×4 (03:57→22:09)
[2017-05-24 07:30] VITALS: BP 129/80; RESP 18
[2017-05-24] MEDS: POLYETHYLENE GLYCOL 17 GM PACKET PO SCH ×2 (09:00→20:36)
[2017-05-24] MEDS: predniSONE 10 MG TAB PO SCH ×2 (09:10→20:37)
[2017-05-24] MEDS: GABAPENTIN 300 MG CAP PO SCH ×2 (09:10→20:37)
[2017-05-24] MEDS: DOCUSATE SODIUM 100 MG CAP PO SCH (09:10)
[2017-05-24] MEDS: FERROUS SULFATE (EC) 325 MG TAB PO SCH (09:10)
[2017-05-24] MEDS: CHOLECALCIFEROL 1,000 UNIT TAB PO SCH (09:11)
[2017-05-24] MEDS: BENAZEPRIL 10 MG TAB PO SCH (09:11)
[2017-05-24] MEDS: HYDROCHLOROTHIAZIDE 12.5 MG CAP PO SCH (09:11)
[2017-05-24] MEDS: TIMOLOL 0.5% 5 ML OPH BOTH EYES SCH (09:16)
[2017-05-24 09:17] VITALS: BP 140/64; PULSE 64; RESP 16
--- NOTE | 2017-05-24 09:25 | CONS ---
Date/Time of Note Date/Time of Note DATE: 05/24/17 TIME: 09:24 Consult Date/Type/Reason Admit Date/Time May 19, 2017 at 21:00 Type of Consultation: cardiology Ordering Provider: JULIÁN MYERS Subjective Feeling better Objective pulm-cta min assist Vital Signs Date Time Temp Pulse Resp B/P Pulse Ox O2 Delivery O2 Flow Rate FiO2 05/24/17 09:17 64 16 140/64 98 Room Air 05/24/17 02:00 98.7 Intake and Output 05/23/17 05/23/17 05/24/17 15:00 23:00 07:00 Intake Total 300 ml 680 ml 1050 ml Balance 300 ml 680 ml 1050 ml Results/Medications Result Diagram: 05/20/1761005/20/17 0611 Medications Current Medications Acetaminophen (Tylenol Tab) 650 mg Q6H PRN PO PAIN LEVEL 1-3 OR FEVER; Start 05/19/17 at 23:07 Acetaminophen/ Hydrocodone Bitart ([place] (5/325)) 1 tab Q6H PRN PO PAIN LEVEL 7 -10 Last administered on 05/24/17 03:57; Admin Dose 1 TAB; Start 05/19/17 at 23:07 Gabapentin (Neurontin) 600 mg BID PO Last administered on 05/24/17 09:10; Admin Dose 600 MG; Start 05/19/17 at 23:07 Trazodone HCl (Desyrel) 50 mg QHS PO Last administered on 05/23/17 20:34; Admin Dose 50 MG; Start 05/19/17 at 23:07 Latanoprost (Xalatan) 1 drop QHS BOTH EYES Last administered on 05/23/17 20: 33; Admin Dose 1 DROP; Start 05/19/17 at 23:07 Cholecalciferol (Vitamin D) 1,000 unit DAILY PO Last administered on 09:11; Admin Dose 1,000 UNIT; Start 05/19/17 at 23:07 Morphine Sulfate (morphine) 2 mg Q2H PRN IV pain; Start 05/19/17 at 23:07 Acetaminophen/ Hydrocodone Bitart ([place] (5/325)) 1 tab Q3H PRN PO PAIN Last administered on 05/23/17 13:09; Admin Dose 1 TAB; Start 05/19/17 at 23:07 Prednisone (Prednisone) 10 mg BID PO Last administered on 05/24/17 09:10; Admin Dose 10 MG; Start 05/19/17 at 23:07 Polyethylene Glycol (Miralax) 17 gm BID PO Last administered on 05/23/17 09: 21; Admin Dose 17 GM; Start 05/19/17 at 23:07 Bisacodyl (Dulcolax) 10 mg DAILY PRN PO CONSTIPATION; Start 05/19/17 at 23:07 Ferrous Sulfate (Ferrous Sulfate (Ec)) 325 mg DAILY PO Last administered on 09:10; Admin Dose 325 MG; Start 05/20/17 at 14:00 Docusate Sodium (Colace) 100 mg DAILY PO Last administered on 05/24/17 09:10 ; Admin Dose 100 MG; Start 05/20/17 at 14:00 Benazepril HCl (Lotensin) 10 mg DAILY PO Last administered on 05/24/17 09:11 ; Admin Dose 10 MG; Start 05/22/17 at 09:00 Famotidine (Pepcid) 20 mg HS PO Last administered on 05/23/17 20:34; Admin Dose 20 MG; Start 05/22/17 at 21:00 Hydrochlorothiazide (Hydrochlorothiazide) 12.5 mg DAILY PO Last administered on 05/24/17 09:11; Admin Dose 12.5 MG; Start 05/23/17 at 14:30 Timolol Maleate (Timoptic 0.5%) 1 drop AM BOTH EYES Last administered on 09:16; Admin Dose 1 DROP; Start 05/24/17 at 09:00 Assessment/Plan Additional Assessment/Plan Rehab- Blunt head trauma with rt frontal scalp hematoma, loss of consciousness in addition to rt wrist Colles fx, s/p incision and drainage and immobilization of the wrist. Progressing well with rehab Rheumatoid arthritis affecting multiple joints including bilateral hands, knees and feet. Right eye blindness. Polymyalgia rheumatica. Hypertension. GEN ZAMBRANO MD May 24, 2017 09:25
--- NOTE | 2017-05-24 11:38 | CONS ---
Date/Time of Note Date/Time of Note DATE: 05/24/17 TIME: 11:37 Assessment/Plan Assessment/Plan Chief Complaint/Hosp Course 81-year-old female with a past medical history of hypertension, low back surgery , hiatal hernia, right eye blindness, rheumatoid arthritis of multiple joints, who sustained blunt head trauma with right frontal scalp hematoma, right wrist fracture for which she had undergone incision and drainage with manipulative reduction and immobilization of the wrist, now admitted to acute rehabilitation unit for further complex interdisciplinary physical therapy. 1. Colles' fracture of the right wrist, severely comminuted and displaced. - Status post open irrigation and debridement with manipulative reduction and immobilization of the right wrist and forearm in a short arm cast on May. -Continue as needed pain medications -PT/OT eval and treatment. 2. Polymyalgia rheumatica. -Continue steroid,PRN pain meds. 3. Amblyopia of the right eye. - Continue eyedrops - Fall precautions. 4. Anemia with iron deficiency. H&H stable. -on oral iron replacement. 5. Essential hypertension. -Continue RENAY inhibitor/HCTZ. Follow-up with cardiology recommendations. 6. History of constipation. -Stool softeners and PRN laxatives. 7.GERD with hiatal hernia. -Pepcid HS 8. Peripheral edema. No DVT per imaging. -Continue thiazide diuretics. Patient was seen in collaboration with . Problems: Consultation Date/Type/Reason Admit Date/Time May 19, 2017 at 21:00 Type of Consultation: cardiology Referring Provider: JULIÁN MYERS 24 HR Interval Summary Free Text/Dictation Patient with excellent participation in physical therapy. Her lower extremity swelling had improved. Exam/Review of Systems Vital Signs Vitals Vital Signs Date Time Temp Pulse Resp B/P Pulse Ox O2 Delivery O2 Flow Rate FiO2 05/24/17 09:17 64 16 140/64 98 Room Air 05/24/17 07:30 97.8 Intake and Output 05/23/17 05/23/17 05/24/17 14:59 22:59 06:59 Intake Total 300 ml 680 ml 1050 ml Balance 300 ml 680 ml 1050 ml Exam General: Elderly female, not in any acute distress . HEENT: Normocephalic, Atraumatic, No laceration or hematoma; Eyes: PEERL, Conjunctiva clear, Anicteric sclera Neck: Supple without any lymphadenopathy, nontender, no JVD, no carotid bruits, trachea midline, no thyromegaly Cardiac: S1, S2 auscultated, regular rhythm and rate, no mumurs or gallop Pulmonary: Normal respiratory effort. Chest clear to auscultation bilaterally, no adventitious breath sounds GI: Abdomen normal to inspection. Soft, non tender, non- distended, no masses, no rebound tenderness or guarding. Bowel sounds active on all four quadrants Genitourinary: Deferred Extremities: With trace edema to bilateral lower extremities, left greater than right-improved from prior study. Right arm with splint. No cyanosis/tingling/ numbness/edema undercast that can be seen. Pulses [2+] bilaterally. Full ROM on all four extremities. No focal weakness appreciated. Neurologic: Alert to person, place, time, and situation. Affect appropriate, intact sensation. Skin: Clean,dry, and intact. No ecchymosis, no rashes, or lesions Results Result Diagram: 05/20/1761005/20/17 0611 Medications Medications Current Medications Acetaminophen (Tylenol Tab) 650 mg Q6H PRN PO PAIN LEVEL 1-3 OR FEVER; Start 05/19/17 at 23:07 Acetaminophen/ Hydrocodone Bitart ([place] (5/325)) 1 tab Q6H PRN PO PAIN LEVEL 7 -10 Last administered on 05/24/17 10:06; Admin Dose 1 TAB; Start 05/19/17 at 23:07 Gabapentin (Neurontin) 600 mg BID PO Last administered on 05/24/17 09:10; Admin Dose 600 MG; Start 05/19/17 at 23:07 Trazodone HCl (Desyrel) 50 mg QHS PO Last administered on 05/23/17 20:34; Admin Dose 50 MG; Start 05/19/17 at 23:07 Latanoprost (Xalatan) 1 drop QHS BOTH EYES Last administered on 05/23/17 20: 33; Admin Dose 1 DROP; Start 05/19/17 at 23:07 Cholecalciferol (Vitamin D) 1,000 unit DAILY PO Last administered on 09:11; Admin Dose 1,000 UNIT; Start 05/19/17 at 23:07 Morphine Sulfate (morphine) 2 mg Q2H PRN IV pain; Start 05/19/17 at 23:07 Acetaminophen/ Hydrocodone Bitart ([place] (5/325)) 1 tab Q3H PRN PO PAIN Last administered on 05/23/17 13:09; Admin Dose 1 TAB; Start 05/19/17 at 23:07 Prednisone (Prednisone) 10 mg BID PO Last administered on 05/24/17 09:10; Admin Dose 10 MG; Start 05/19/17 at 23:07 Polyethylene Glycol (Miralax) 17 gm BID PO Last administered on 05/23/17 09: 21; Admin Dose 17 GM; Start 05/19/17 at 23:07 Bisacodyl (Dulcolax) 10 mg DAILY PRN PO CONSTIPATION; Start 05/19/17 at 23:07 Ferrous Sulfate (Ferrous Sulfate (Ec)) 325 mg DAILY PO Last administered on 09:10; Admin Dose 325 MG; Start 05/20/17 at 14:00 Docusate Sodium (Colace) 100 mg DAILY PO Last administered on 05/24/17 09:10 ; Admin Dose 100 MG; Start 05/20/17 at 14:00 Benazepril HCl (Lotensin) 10 mg DAILY PO Last administered on 05/24/17 09:11 ; Admin Dose 10 MG; Start 05/22/17 at 09:00 Famotidine (Pepcid) 20 mg HS PO Last administered on 05/23/17 20:34; Admin Dose 20 MG; Start 05/22/17 at 21:00 Hydrochlorothiazide (Hydrochlorothiazide) 12.5 mg DAILY PO Last administered on 05/24/17 09:11; Admin Dose 12.5 MG; Start 05/23/17 at 14:30 Timolol Maleate (Timoptic 0.5%) 1 drop AM BOTH EYES Last administered on 09:16; Admin Dose 1 DROP; Start 05/24/17 at 09:00 JANEL ALVAREZ NP May 24, 2017 11:38
--- NOTE | 2017-05-24 13:23 | CONS ---
Date/Time of Note Date/Time of Note DATE: 05/24/17 TIME: 13:21 Assessment/Plan Assessment/Plan Additional Assessment/Plan 1. Preoperative evaluation prior to the patient undergoing a wrist open reduction, internal fixation with normal EF by echo, negative troponins, intermediate clinical predictors, going for moderate-risk surgery. Thus, at this time, the patient is without cardiac contraindication to proceeding to the OR on current medications at moderate risk.- Now post-op s/p open I+D/reduction - did well postop, in rehab now - no CP - doing well - happy with care - increase ambulation now 2. Abnormal electrocardiogram with right bundle branch block- no intervention planned. 3. PACs, frequent, and question SVT - now in sinus 4. Hypertension-currently well controlled - better now - with trace LE edema - resume small dose diuretic now. BETTER today - con't gentle diuretic Rx 5. Status post fall, mechanical by description. 6. Rheumatoid arthritis, on baseline steroids, now on stress dose steroids. 7. Polymyalgia rheumatica. 8. Macular degeneration. 9. Anemia. Consultation Date/Type/Reason Admit Date/Time May 19, 2017 at 21:00 Type of Consultation: cardiology Referring Provider: JULIÁN MYERS 24 HR Interval Summary Free Text/Dictation NO acute events - better overall- con't to keep euvolemic - responded well to gentle diuresis ROS: No fever, no chills, no nausea, no vomiting, no diarrhea/constipation No recent weight changes No chest pain, no PND, no orthopnea No dizziness, blurred vision No thirst, no heat or cold intolerance Exam/Review of Systems Vital Signs Vitals Vital Signs Date Time Temp Pulse Resp B/P Pulse Ox O2 Delivery O2 Flow Rate FiO2 05/24/17 09:17 64 16 140/64 98 Room Air 05/24/17 07:30 97.8 Intake and Output 05/23/17 05/23/17 05/24/17 15:00 23:00 07:00 Intake Total 300 ml 680 ml 1050 ml Balance 300 ml 680 ml 1050 ml Exam General: WN/WD/NAD, AOx 3 HEENT: Unicetric/atraumatic/EOMI (follows commands) NECK: JVD elevated, no thyromegaly Lymph: no lymphadenopathy HEART: regular with no S3, II/ systolic murmur at apex LUNGS: Coarse sounds ABD: soft, NT, ND, +BS : Intact Neuro: non focal SKIN: chronic changes EXT: trace edema Results Result Diagram: 05/20/1761005/20/17 06 Medications Medications Current Medications Acetaminophen (Tylenol Tab) 650 mg Q6H PRN PO PAIN LEVEL 1-3 OR FEVER; Start 05/19/17 at 23:07 Acetaminophen/ Hydrocodone Bitart ([place] (5/325)) 1 tab Q6H PRN PO PAIN LEVEL 7 -10 Last administered on 05/24/17 10:06; Admin Dose 1 TAB; Start 05/19/17 at 23:07 Gabapentin (Neurontin) 600 mg BID PO Last administered on 05/24/17 09:10; Admin Dose 600 MG; Start 05/19/17 at 23:07 Trazodone HCl (Desyrel) 50 mg QHS PO Last administered on 05/23/17 20:34; Admin Dose 50 MG; Start 05/19/17 at 23:07 Latanoprost (Xalatan) 1 drop QHS BOTH EYES Last administered on 05/23/17 20: 33; Admin Dose 1 DROP; Start 05/19/17 at 23:07 Cholecalciferol (Vitamin D) 1,000 unit DAILY PO Last administered on 09:11; Admin Dose 1,000 UNIT; Start 05/19/17 at 23:07 Morphine Sulfate (morphine) 2 mg Q2H PRN IV pain; Start 05/19/17 at 23:07 Acetaminophen/ Hydrocodone Bitart ([place] (5/325)) 1 tab Q3H PRN PO PAIN Last administered on 05/23/17 13:09; Admin Dose 1 TAB; Start 05/19/17 at 23:07 Prednisone (Prednisone) 10 mg BID PO Last administered on 05/24/17 09:10; Admin Dose 10 MG; Start 05/19/17 at 23:07 Polyethylene Glycol (Miralax) 17 gm BID PO Last administered on 05/23/17 09: 21; Admin Dose 17 GM; Start 05/19/17 at 23:07 Bisacodyl (Dulcolax) 10 mg DAILY PRN PO CONSTIPATION; Start 05/19/17 at 23:07 Ferrous Sulfate (Ferrous Sulfate (Ec)) 325 mg DAILY PO Last administered on 09:10; Admin Dose 325 MG; Start 05/20/17 at 14:00 Docusate Sodium (Colace) 100 mg DAILY PO Last administered on 05/24/17 09:10 ; Admin Dose 100 MG; Start 05/20/17 at 14:00 Benazepril HCl (Lotensin) 10 mg DAILY PO Last administered on 05/24/17 09:11 ; Admin Dose 10 MG; Start 05/22/17 at 09:00 Famotidine (Pepcid) 20 mg HS PO Last administered on 05/23/17 20:34; Admin Dose 20 MG; Start 05/22/17 at 21:00 Hydrochlorothiazide (Hydrochlorothiazide) 12.5 mg DAILY PO Last administered on 05/24/17 09:11; Admin Dose 12.5 MG; Start 05/23/17 at 14:30 Timolol Maleate (Timoptic 0.5%) 1 drop AM BOTH EYES Last administered on 09:16; Admin Dose 1 DROP; Start 05/24/17 at 09:00 SHERIE BHANDARI MD May 24, 2017 13:23
[2017-05-24 14:00] VITALS: BP 128/65; RESP 18
[2017-05-24 19:47] VITALS: BP 130/68; RESP 18
[2017-05-24] MEDS: LATANOPROST 0.005% 2.5 ML OPH BOTH EYES SCH (20:37)
[2017-05-24] MEDS: traZODone 50 MG TAB PO SCH (20:37)
[2017-05-24] MEDS: FAMOTIDINE 20 MG TAB PO SCH (20:37)
[2017-05-25 02:00] VITALS: BP 163/68; PULSE 63; RESP 18
[2017-05-25 07:00] VITALS: BP 137/63; RESP 18
[2017-05-25] MEDS: FERROUS SULFATE (EC) 325 MG TAB PO SCH (09:04)
[2017-05-25] MEDS: TIMOLOL 0.5% 5 ML OPH BOTH EYES SCH (09:04)
[2017-05-25] MEDS: GABAPENTIN 300 MG CAP PO SCH ×2 (09:04→20:47)
[2017-05-25] MEDS: CHOLECALCIFEROL 1,000 UNIT TAB PO SCH (09:04)
[2017-05-25] MEDS: BENAZEPRIL 10 MG TAB PO SCH (09:05)
[2017-05-25] MEDS: predniSONE 10 MG TAB PO SCH ×2 (09:05→20:47)
[2017-05-25] MEDS: DOCUSATE SODIUM 100 MG CAP PO SCH (09:05)
[2017-05-25] MEDS: HYDROCHLOROTHIAZIDE 12.5 MG CAP PO SCH (09:05)
[2017-05-25] MEDS: POLYETHYLENE GLYCOL 17 GM PACKET PO SCH ×2 (09:06→20:50)
[2017-05-25] MEDS: HYDROCODONE/APAP (5/325) TAB PO PRN ×2 (09:06→17:50)
--- NOTE | 2017-05-25 11:04 | CONS ---
Date/Time of Note Date/Time of Note DATE: 05/25/17 TIME: 11:02 Assessment/Plan Assessment/Plan Chief Complaint/Hosp Course 81-year-old female with a past medical history of hypertension, low back surgery , hiatal hernia, right eye blindness, rheumatoid arthritis of multiple joints, who sustained blunt head trauma with right frontal scalp hematoma, right wrist fracture for which she had undergone incision and drainage with manipulative reduction and immobilization of the wrist, now admitted to acute rehabilitation unit for further complex interdisciplinary physical therapy. 1. Colles' fracture of the right wrist, severely comminuted and displaced. - Status post open irrigation and debridement with manipulative reduction and immobilization of the right wrist and forearm in a short arm cast on May. -Continue as needed pain medications -PT/OT eval and treatment. 2. Polymyalgia rheumatica. -Continue steroid,PRN pain meds. 3. Amblyopia of the right eye. - Continue eyedrops - Fall precautions. 4. Anemia with iron deficiency. H&H stable. -on oral iron replacement. 5. Essential hypertension. -Continue RENAY inhibitor/HCTZ. 6. History of constipation. -Stool softeners and PRN laxatives. 7.GERD with hiatal hernia. -Pepcid HS 8. Peripheral edema. Stable. -Continue thiazide diuretics. Patient was seen in collaboration with . Problems: Consultation Date/Type/Reason Admit Date/Time May 19, 2017 at 21:00 Type of Consultation: cardiology Referring Provider: JULIÁN MYERS 24 HR Interval Summary Free Text/Dictation No acute distress. Exam/Review of Systems Vital Signs Vitals Vital Signs Date Time Temp Pulse Resp B/P Pulse Ox O2 Delivery O2 Flow Rate FiO2 05/25/17 07:00 97.9 58 18 137/63 98 05/25/17 02:00 Room Air Intake and Output 05/24/17 05/24/17 05/25/17 14:59 22:59 06:59 Intake Total 550 ml 1030 ml Output Total 450 ml 350 ml Balance 100 ml 680 ml Exam General: Elderly female, not in any acute distress . HEENT: Normocephalic, Atraumatic, No laceration or hematoma; Eyes: PEERL, Conjunctiva clear, Anicteric sclera Neck: Supple without any lymphadenopathy, nontender, no JVD, no carotid bruits, trachea midline, no thyromegaly Cardiac: S1, S2 auscultated, regular rhythm and rate, no mumurs or gallop Pulmonary: Normal respiratory effort. Chest clear to auscultation bilaterally, no adventitious breath sounds GI: Abdomen normal to inspection. Soft, non tender, non- distended, no masses, no rebound tenderness or guarding. Bowel sounds active on all four quadrants Genitourinary: Deferred Extremities: With trace edema Left ankle. Right arm with splint. No cyanosis/ tingling/numbness/edema undercast that can be seen. Pulses [2+] bilaterally. Full ROM on all four extremities. No focal weakness appreciated. Neurologic: Alert to person, place, time, and situation. Affect appropriate, intact sensation. Skin: Clean,dry, and intact. No ecchymosis, no rashes, or lesions Medications Medications Current Medications Acetaminophen (Tylenol Tab) 650 mg Q6H PRN PO PAIN LEVEL 1-3 OR FEVER Last administered on 05/24/17 15:01; Admin Dose 650 MG; Start 05/19/17 at 23:07 Acetaminophen/ Hydrocodone Bitart ([place] (5/325)) 1 tab Q6H PRN PO PAIN LEVEL 7 -10 Last administered on 05/25/17 09:06; Admin Dose 1 TAB; Start 05/19/17 at 23:07 Gabapentin (Neurontin) 600 mg BID PO Last administered on 05/25/17 09:04; Admin Dose 600 MG; Start 05/19/17 at 23:07 Trazodone HCl (Desyrel) 50 mg QHS PO Last administered on 05/24/17 20:37; Admin Dose 50 MG; Start 05/19/17 at 23:07 Latanoprost (Xalatan) 1 drop QHS BOTH EYES Last administered on 05/24/17 20: 37; Admin Dose 1 DROP; Start 05/19/17 at 23:07 Cholecalciferol (Vitamin D) 1,000 unit DAILY PO Last administered on 09:04; Admin Dose 1,000 UNIT; Start 05/19/17 at 23:07 Morphine Sulfate (morphine) 2 mg Q2H PRN IV pain; Start 05/19/17 at 23:07 Acetaminophen/ Hydrocodone Bitart ([place] (5/325)) 1 tab Q3H PRN PO PAIN Last administered on 05/24/17 22:09; Admin Dose 1 TAB; Start 05/19/17 at 23:07 Prednisone (Prednisone) 10 mg BID PO Last administered on 05/25/17 09:05; Admin Dose 10 MG; Start 05/19/17 at 23:07 Polyethylene Glycol (Miralax) 17 gm BID PO Last administered on 05/25/17 09: 06; Admin Dose 17 GM; Start 05/19/17 at 23:07 Bisacodyl (Dulcolax) 10 mg DAILY PRN PO CONSTIPATION; Start 05/19/17 at 23:07 Ferrous Sulfate (Ferrous Sulfate (Ec)) 325 mg DAILY PO Last administered on 09:04; Admin Dose 325 MG; Start 05/20/17 at 14:00 Docusate Sodium (Colace) 100 mg DAILY PO Last administered on 05/25/17 09:05 ; Admin Dose 100 MG; Start 05/20/17 at 14:00 Benazepril HCl (Lotensin) 10 mg DAILY PO Last administered on 05/25/17 09:05 ; Admin Dose 10 MG; Start 05/22/17 at 09:00 Famotidine (Pepcid) 20 mg HS PO Last administered on 05/24/17 20:37; Admin Dose 20 MG; Start 05/22/17 at 21:00 Hydrochlorothiazide (Hydrochlorothiazide) 12.5 mg DAILY PO Last administered on 05/25/17 09:05; Admin Dose 12.5 MG; Start 05/23/17 at 14:30 Timolol Maleate (Timoptic 0.5%) 1 drop AM BOTH EYES Last administered on 09:04; Admin Dose 1 DROP; Start 05/24/17 at 09:00 JANEL ALVAREZ NP May 25, 2017 11:04
--- NOTE | 2017-05-25 15:23 | CONS ---
Date/Time of Note Date/Time of Note DATE: 05/25/17 TIME: 15:21 Assessment/Plan Assessment/Plan Additional Assessment/Plan 1. Preoperative evaluation prior to the patient undergoing a wrist open reduction, internal fixation with normal EF by echo, negative troponins, intermediate clinical predictors, going for moderate-risk surgery. Thus, at this time, the patient is without cardiac contraindication to proceeding to the OR on current medications at moderate risk.- Now post-op s/p open I+D/reduction - did well postop, in rehab now - no CP - doing well - happy with care - increase ambulation now- BETTER overall. In good spirits. Resume rehab tomorrow. 2. Abnormal electrocardiogram with right bundle branch block- no intervention planned. 3. PACs, frequent, and question SVT - now in sinus 4. Hypertension-currently well controlled - better now - with trace LE edema - resume small dose diuretic now. BETTER today - con't gentle diuretic Rx - LE elevation advised. 5. Status post fall, mechanical by description. 6. Rheumatoid arthritis, on baseline steroids, now on stress dose steroids. 7. Polymyalgia rheumatica. 8. Macular degeneration. 9. Anemia. Consultation Date/Type/Reason Admit Date/Time May 19, 2017 at 21:00 Type of Consultation: cardiology Referring Provider: JULIÁN MYERS 24 HR Interval Summary Free Text/Dictation doing well - happy with care - increase ambulation now- BETTER overall. In good spirits. Resume rehab tomorrow. ROS: No fever, no chills, no nausea, no vomiting, no diarrhea/constipation No recent weight changes No chest pain, no PND, no orthopnea No dizziness, blurred vision No thirst, no heat or cold intolerance Exam/Review of Systems Vital Signs Vitals Vital Signs Date Time Temp Pulse Resp B/P Pulse Ox O2 Delivery O2 Flow Rate FiO2 05/25/17 07:00 97.9 58 18 137/63 98 05/25/17 02:00 Room Air Intake and Output 05/24/17 05/24/17 05/25/17 14:59 22:59 06:59 Intake Total 550 ml 1030 ml Output Total 450 ml 350 ml Balance 100 ml 680 ml Exam General: WN/WD/NAD, AOx 3 HEENT: Unicetric/bruising/EOMI (follow commands) NECK: JVD elevated, no thyromegaly Lymph: no lymphadenopathy HEART: regular with no S3, II/ systolic murmur at apex LUNGS: Coarse sounds ABD: soft, NT, ND, +BS : Intact Neuro: non focal SKIN: chronic changes EXT: trace edema Medications Medications Current Medications Acetaminophen (Tylenol Tab) 650 mg Q6H PRN PO PAIN LEVEL 1-3 OR FEVER Last administered on 05/24/17 15:01; Admin Dose 650 MG; Start 05/19/17 at 23:07 Acetaminophen/ Hydrocodone Bitart ([place] (5/325)) 1 tab Q6H PRN PO PAIN LEVEL 7 -10 Last administered on 05/25/17 09:06; Admin Dose 1 TAB; Start 05/19/17 at 23:07 Gabapentin (Neurontin) 600 mg BID PO Last administered on 05/25/17 09:04; Admin Dose 600 MG; Start 05/19/17 at 23:07 Trazodone HCl (Desyrel) 50 mg QHS PO Last administered on 05/24/17 20:37; Admin Dose 50 MG; Start 05/19/17 at 23:07 Latanoprost (Xalatan) 1 drop QHS BOTH EYES Last administered on 05/24/17 20: 37; Admin Dose 1 DROP; Start 05/19/17 at 23:07 Cholecalciferol (Vitamin D) 1,000 unit DAILY PO Last administered on 09:04; Admin Dose 1,000 UNIT; Start 05/19/17 at 23:07 Morphine Sulfate (morphine) 2 mg Q2H PRN IV pain; Start 05/19/17 at 23:07 Acetaminophen/ Hydrocodone Bitart ([place] (5/325)) 1 tab Q3H PRN PO PAIN Last administered on 05/24/17 22:09; Admin Dose 1 TAB; Start 05/19/17 at 23:07 Prednisone (Prednisone) 10 mg BID PO Last administered on 05/25/17 09:05; Admin Dose 10 MG; Start 05/19/17 at 23:07 Polyethylene Glycol (Miralax) 17 gm BID PO Last administered on 05/25/17 09: 06; Admin Dose 17 GM; Start 05/19/17 at 23:07 Bisacodyl (Dulcolax) 10 mg DAILY PRN PO CONSTIPATION; Start 05/19/17 at 23:07 Ferrous Sulfate (Ferrous Sulfate (Ec)) 325 mg DAILY PO Last administered on 09:04; Admin Dose 325 MG; Start 05/20/17 at 14:00 Docusate Sodium (Colace) 100 mg DAILY PO Last administered on 05/25/17 09:05 ; Admin Dose 100 MG; Start 05/20/17 at 14:00 Benazepril HCl (Lotensin) 10 mg DAILY PO Last administered on 05/25/17 09:05 ; Admin Dose 10 MG; Start 05/22/17 at 09:00 Famotidine (Pepcid) 20 mg HS PO Last administered on 05/24/17 20:37; Admin Dose 20 MG; Start 05/22/17 at 21:00 Hydrochlorothiazide (Hydrochlorothiazide) 12.5 mg DAILY PO Last administered on 05/25/17 09:05; Admin Dose 12.5 MG; Start 05/23/17 at 14:30 Timolol Maleate (Timoptic 0.5%) 1 drop AM BOTH EYES Last administered on 09:04; Admin Dose 1 DROP; Start 05/24/17 at 09:00 SHERIE BHANDARI MD May 25, 2017 15:23
[2017-05-25 20:00] VITALS: BP 120/76; RESP 18
[2017-05-25] MEDS: LATANOPROST 0.005% 2.5 ML OPH BOTH EYES SCH (20:47)
[2017-05-25] MEDS: traZODone 50 MG TAB PO SCH (20:47)
[2017-05-25] MEDS: FAMOTIDINE 20 MG TAB PO SCH (20:47)
[2017-05-26 02:00] VITALS: BP 128/58; RESP 18
[2017-05-26] MEDS: HYDROCODONE/APAP (5/325) TAB PO PRN ×4 (04:12→22:09)
[2017-05-26 07:00] VITALS: BP 122/71; RESP 18
[2017-05-26] MEDS: CHOLECALCIFEROL 1,000 UNIT TAB PO SCH (08:51)
[2017-05-26] MEDS: FERROUS SULFATE (EC) 325 MG TAB PO SCH (08:51)
[2017-05-26] MEDS: TIMOLOL 0.5% 5 ML OPH BOTH EYES SCH (08:51)
[2017-05-26] MEDS: POLYETHYLENE GLYCOL 17 GM PACKET PO SCH ×2 (08:51→21:00)
[2017-05-26] MEDS: DOCUSATE SODIUM 100 MG CAP PO SCH (08:52)
[2017-05-26] MEDS: GABAPENTIN 300 MG CAP PO SCH ×2 (08:52→21:14)
[2017-05-26] MEDS: BENAZEPRIL 10 MG TAB PO SCH (08:52)
[2017-05-26] MEDS: predniSONE 10 MG TAB PO SCH ×2 (08:52→21:15)
[2017-05-26] MEDS: HYDROCHLOROTHIAZIDE 12.5 MG CAP PO SCH (08:53)
--- NOTE | 2017-05-26 11:16 | CONS ---
Date/Time of Note Date/Time of Note DATE: 05/26/17 TIME: 11:15 Consult Date/Type/Reason Admit Date/Time May 19, 2017 at 21:00 Type of Consultation: cardiology Ordering Provider: JULIÁN MYERS Objective Vital Signs Date Time Temp Pulse Resp B/P Pulse Ox O2 Delivery O2 Flow Rate FiO2 05/26/17 07:00 98.1 66 18 122/71 98 05/25/17 02:00 Room Air Intake and Output 05/25/17 05/25/17 05/26/17 14:59 22:59 06:59 Intake Total 1200 ml 120 ml Output Total 800 ml Balance 400 ml 120 ml INTERDISCIPLINARY TEAM CONFERENCE BOWEL- Cont BLADDER-Cont SKIN- intact OT- DRESSING-sba/min BATHING-sba/min TOILETING-min PT- BED MOBILITY-cga TRANSFERS-cga AMBULATION-cga 100 SPEECH- COGNITION-I A/P- Interdisciplinary team conference held today. Please see interdisciplinary sheet. Working toward d.c. on 05/30 with post discharge follow up of physical therapy, occupational therapy. Results/Medications Medications Current Medications Acetaminophen (Tylenol Tab) 650 mg Q6H PRN PO PAIN LEVEL 1-3 OR FEVER Last administered on 05/24/17 15:01; Admin Dose 650 MG; Start 05/19/17 at 23:07 Acetaminophen/ Hydrocodone Bitart ([place] (5/325)) 1 tab Q6H PRN PO PAIN LEVEL 7 -10 Last administered on 05/25/17 09:06; Admin Dose 1 TAB; Start 05/19/17 at 23:07 Gabapentin (Neurontin) 600 mg BID PO Last administered on 05/26/17 08:52; Admin Dose 600 MG; Start 05/19/17 at 23:07 Trazodone HCl (Desyrel) 50 mg QHS PO Last administered on 05/25/17 20:47; Admin Dose 50 MG; Start 05/19/17 at 23:07 Latanoprost (Xalatan) 1 drop QHS BOTH EYES Last administered on 05/25/17 20: 47; Admin Dose 1 DROP; Start 05/19/17 at 23:07 Cholecalciferol (Vitamin D) 1,000 unit DAILY PO Last administered on 08:51; Admin Dose 1,000 UNIT; Start 05/19/17 at 23:07 Morphine Sulfate (morphine) 2 mg Q2H PRN IV pain; Start 05/19/17 at 23:07 Acetaminophen/ Hydrocodone Bitart ([place] (5/325)) 1 tab Q3H PRN PO PAIN Last administered on 05/26/17 08:52; Admin Dose 1 TAB; Start 05/19/17 at 23:07 Prednisone (Prednisone) 10 mg BID PO Last administered on 05/26/17 08:52; Admin Dose 10 MG; Start 05/19/17 at 23:07 Polyethylene Glycol (Miralax) 17 gm BID PO Last administered on 05/26/17 08: 51; Admin Dose 17 GM; Start 05/19/17 at 23:07 Bisacodyl (Dulcolax) 10 mg DAILY PRN PO CONSTIPATION; Start 05/19/17 at 23:07 Ferrous Sulfate (Ferrous Sulfate (Ec)) 325 mg DAILY PO Last administered on 08:51; Admin Dose 325 MG; Start 05/20/17 at 14:00 Docusate Sodium (Colace) 100 mg DAILY PO Last administered on 05/26/17 08:52 ; Admin Dose 100 MG; Start 05/20/17 at 14:00 Benazepril HCl (Lotensin) 10 mg DAILY PO Last administered on 05/26/17 08:52 ; Admin Dose 10 MG; Start 05/22/17 at 09:00 Famotidine (Pepcid) 20 mg HS PO Last administered on 05/25/17 20:47; Admin Dose 20 MG; Start 05/22/17 at 21:00 Hydrochlorothiazide (Hydrochlorothiazide) 12.5 mg DAILY PO Last administered on 05/26/17 08:53; Admin Dose 12.5 MG; Start 05/23/17 at 14:30 Timolol Maleate (Timoptic 0.5%) 1 drop AM BOTH EYES Last administered on 08:51; Admin Dose 1 DROP; Start 05/24/17 at 09:00 GEN ZAMBRANO MD May 26, 2017 11:16
--- NOTE | 2017-05-26 11:33 | CONS ---
Date/Time of Note Date/Time of Note DATE: 05/26/17 TIME: 11:32 Assessment/Plan Assessment/Plan Chief Complaint/Hosp Course 81-year-old female with a past medical history of hypertension, low back surgery , hiatal hernia, right eye blindness, rheumatoid arthritis of multiple joints, who sustained blunt head trauma with right frontal scalp hematoma, right wrist fracture for which she had undergone incision and drainage with manipulative reduction and immobilization of the wrist, now admitted to acute rehabilitation unit for further complex interdisciplinary physical therapy. 1. Colles' fracture of the right wrist, severely comminuted and displaced. - Status post open irrigation and debridement with manipulative reduction and immobilization of the right wrist and forearm in a short arm cast on May. -Continue as needed pain medications -PT/OT eval and treatment. 2. Polymyalgia rheumatica. -Continue steroid,PRN pain meds. 3. Amblyopia of the right eye. - Continue eyedrops - Fall precautions. 4. Anemia with iron deficiency. H&H stable. -on oral iron replacement. 5. Essential hypertension. -Continue RENAY inhibitor/HCTZ. 6. History of constipation. -Stool softeners and PRN laxatives. 7.GERD with hiatal hernia. -Pepcid HS 8. Peripheral edema. Stable. -Continue thiazide diuretics. Patient was seen in collaboration with . Problems: Consultation Date/Type/Reason Admit Date/Time May 19, 2017 at 21:00 Type of Consultation: cardiology Referring Provider: JULIÁN MYERS 24 HR Interval Summary Free Text/Dictation No acute distress. Patient with good participation in physical therapy. Exam/Review of Systems Vital Signs Vitals Vital Signs Date Time Temp Pulse Resp B/P Pulse Ox O2 Delivery O2 Flow Rate FiO2 05/26/17 07:00 98.1 66 18 122/71 98 05/25/17 02:00 Room Air Intake and Output 05/25/17 05/25/17 05/26/17 14:59 22:59 06:59 Intake Total 1200 ml 120 ml Output Total 800 ml Balance 400 ml 120 ml Exam General: Elderly female, not in any acute distress . HEENT: Normocephalic, Atraumatic, No laceration or hematoma; Eyes: PEERL, Conjunctiva clear, Anicteric sclera Neck: Supple without any lymphadenopathy, nontender, no JVD, no carotid bruits, trachea midline, no thyromegaly Cardiac: S1, S2 auscultated, regular rhythm and rate, no mumurs or gallop Pulmonary: Normal respiratory effort. Chest clear to auscultation bilaterally, no adventitious breath sounds GI: Abdomen normal to inspection. Soft, non tender, non- distended, no masses, no rebound tenderness or guarding. Bowel sounds active on all four quadrants Genitourinary: Deferred Extremities: With trace edema Left ankle. Right arm with splint. No cyanosis/ tingling/numbness/edema undercast that can be seen. Pulses [2+] bilaterally. Full ROM on all four extremities. No focal weakness appreciated. Neurologic: Alert to person, place, time, and situation. Affect appropriate, intact sensation. Skin: Clean,dry, and intact. No ecchymosis, no rashes, or lesions Medications Medications Current Medications Acetaminophen (Tylenol Tab) 650 mg Q6H PRN PO PAIN LEVEL 1-3 OR FEVER Last administered on 05/24/17 15:01; Admin Dose 650 MG; Start 05/19/17 at 23:07 Acetaminophen/ Hydrocodone Bitart ([place] (5/325)) 1 tab Q6H PRN PO PAIN LEVEL 7 -10 Last administered on 05/25/17 09:06; Admin Dose 1 TAB; Start 05/19/17 at 23:07 Gabapentin (Neurontin) 600 mg BID PO Last administered on 05/26/17 08:52; Admin Dose 600 MG; Start 05/19/17 at 23:07 Trazodone HCl (Desyrel) 50 mg QHS PO Last administered on 05/25/17 20:47; Admin Dose 50 MG; Start 05/19/17 at 23:07 Latanoprost (Xalatan) 1 drop QHS BOTH EYES Last administered on 05/25/17 20: 47; Admin Dose 1 DROP; Start 05/19/17 at 23:07 Cholecalciferol (Vitamin D) 1,000 unit DAILY PO Last administered on 08:51; Admin Dose 1,000 UNIT; Start 05/19/17 at 23:07 Morphine Sulfate (morphine) 2 mg Q2H PRN IV pain; Start 05/19/17 at 23:07 Acetaminophen/ Hydrocodone Bitart ([place] (5/325)) 1 tab Q3H PRN PO PAIN Last administered on 05/26/17 08:52; Admin Dose 1 TAB; Start 05/19/17 at 23:07 Prednisone (Prednisone) 10 mg BID PO Last administered on 05/26/17 08:52; Admin Dose 10 MG; Start 05/19/17 at 23:07 Polyethylene Glycol (Miralax) 17 gm BID PO Last administered on 05/26/17 08: 51; Admin Dose 17 GM; Start 05/19/17 at 23:07 Bisacodyl (Dulcolax) 10 mg DAILY PRN PO CONSTIPATION; Start 05/19/17 at 23:07 Ferrous Sulfate (Ferrous Sulfate (Ec)) 325 mg DAILY PO Last administered on 08:51; Admin Dose 325 MG; Start 05/20/17 at 14:00 Docusate Sodium (Colace) 100 mg DAILY PO Last administered on 05/26/17 08:52 ; Admin Dose 100 MG; Start 05/20/17 at 14:00 Benazepril HCl (Lotensin) 10 mg DAILY PO Last administered on 05/26/17 08:52 ; Admin Dose 10 MG; Start 05/22/17 at 09:00 Famotidine (Pepcid) 20 mg HS PO Last administered on 05/25/17 20:47; Admin Dose 20 MG; Start 05/22/17 at 21:00 Hydrochlorothiazide (Hydrochlorothiazide) 12.5 mg DAILY PO Last administered on 05/26/17 08:53; Admin Dose 12.5 MG; Start 05/23/17 at 14:30 Timolol Maleate (Timoptic 0.5%) 1 drop AM BOTH EYES Last administered on 08:51; Admin Dose 1 DROP; Start 05/24/17 at 09:00 JANEL ALVAREZ NP May 26, 2017 11:33
--- NOTE | 2017-05-26 14:31 | CONS ---
Date/Time of Note Date/Time of Note DATE: 05/26/17 TIME: 14:30 Assessment/Plan Assessment/Plan Chief Complaint/Hosp Course IMPRESSION: 1. Preoperative evaluation prior to the patient undergoing a wrist open reduction, internal fixation with normal EF by echo, negative troponins, intermediate clinical predictors, going for moderate-risk surgery. Thus, at this time, the patient is without cardiac contraindication to proceeding to the OR on current medications at moderate risk.- Now post-op s/p open I+D/reduction 2. Abnormal electrocardiogram with right bundle branch block. 3. PACs, frequent, and question SVT-no recurrence while on Tele 4. Hypertension-remains labile 5. Status post fall, mechanical by description. 6. Rheumatoid arthritis, on baseline steroids, now on stress dose steroids. 7. Polymyalgia rheumatica. 8. Macular degeneration. 9. Anemia. Recc: -Continue steroids -Pain control -Continue ACEI -PT/OT Problems: Consultation Date/Type/Reason Admit Date/Time May 19, 2017 at 21:00 Initial Consult Date 05/19/2017 Type of Consultation: cardiology Reason for Consultation abnl ecg Referring Provider: JULIÁN MYERS Exam/Review of Systems Vital Signs Vitals Vital Signs Date Time Temp Pulse Resp B/P Pulse Ox O2 Delivery O2 Flow Rate FiO2 05/26/17 07:00 98.1 66 18 122/71 98 05/25/17 02:00 Room Air Intake and Output 05/25/17 05/25/17 05/26/17 14:59 22:59 06:59 Intake Total 1200 ml 120 ml Output Total 800 ml Balance 400 ml 120 ml Exam Review of Systems: CONSTITUTIONAL: No fevers, chills. PULMONARY: No sob CARDIOVASCULAR: No chest pain/palpitations GASTROINTESTINAL: No nausea/vomiting. GENITOURINARY: No hematuria/dysuria. MUSCULOSKELETAL: No myagias/arthalgias. PSYCHIATRIC: The patient denies depression. NEUROLOGIC: No weakness Constitutional: alert, oriented Psych: no complaints Head: normocephalic ENMT: mucosa pink and moist Neck: jvd (9 cm water), supple Respiratory: clear to auscultation Cardiovascular: regular rate and rhythm Gastrointestinal: non-tender, soft Musculoskeletal: other (arm in sling) Extremities: edema (none) Neurological: other (NO focal deficits) Medications Medications Current Medications Acetaminophen (Tylenol Tab) 650 mg Q6H PRN PO PAIN LEVEL 1-3 OR FEVER Last administered on 05/24/17 15:01; Admin Dose 650 MG; Start 05/19/17 at 23:07 Acetaminophen/ Hydrocodone Bitart ([place] (5/325)) 1 tab Q6H PRN PO PAIN LEVEL 7 -10 Last administered on 05/25/17 09:06; Admin Dose 1 TAB; Start 05/19/17 at 23:07 Gabapentin (Neurontin) 600 mg BID PO Last administered on 05/26/17 08:52; Admin Dose 600 MG; Start 05/19/17 at 23:07 Trazodone HCl (Desyrel) 50 mg QHS PO Last administered on 05/25/17 20:47; Admin Dose 50 MG; Start 05/19/17 at 23:07 Latanoprost (Xalatan) 1 drop QHS BOTH EYES Last administered on 05/25/17 20: 47; Admin Dose 1 DROP; Start 05/19/17 at 23:07 Cholecalciferol (Vitamin D) 1,000 unit DAILY PO Last administered on 08:51; Admin Dose 1,000 UNIT; Start 05/19/17 at 23:07 Morphine Sulfate (morphine) 2 mg Q2H PRN IV pain; Start 05/19/17 at 23:07 Acetaminophen/ Hydrocodone Bitart ([place] (5/325)) 1 tab Q3H PRN PO PAIN Last administered on 05/26/17 08:52; Admin Dose 1 TAB; Start 05/19/17 at 23:07 Prednisone (Prednisone) 10 mg BID PO Last administered on 05/26/17 08:52; Admin Dose 10 MG; Start 05/19/17 at 23:07 Polyethylene Glycol (Miralax) 17 gm BID PO Last administered on 05/26/17 08: 51; Admin Dose 17 GM; Start 05/19/17 at 23:07 Bisacodyl (Dulcolax) 10 mg DAILY PRN PO CONSTIPATION; Start 05/19/17 at 23:07 Ferrous Sulfate (Ferrous Sulfate (Ec)) 325 mg DAILY PO Last administered on 08:51; Admin Dose 325 MG; Start 05/20/17 at 14:00 Docusate Sodium (Colace) 100 mg DAILY PO Last administered on 05/26/17 08:52 ; Admin Dose 100 MG; Start 05/20/17 at 14:00 Benazepril HCl (Lotensin) 10 mg DAILY PO Last administered on 05/26/17 08:52 ; Admin Dose 10 MG; Start 05/22/17 at 09:00 Famotidine (Pepcid) 20 mg HS PO Last administered on 05/25/17 20:47; Admin Dose 20 MG; Start 05/22/17 at 21:00 Hydrochlorothiazide (Hydrochlorothiazide) 12.5 mg DAILY PO Last administered on 05/26/17 08:53; Admin Dose 12.5 MG; Start 05/23/17 at 14:30 Timolol Maleate (Timoptic 0.5%) 1 drop AM BOTH EYES Last administered on 08:51; Admin Dose 1 DROP; Start 05/24/17 at 09:00 MICH WOODALL 13, 2017 14:31
[2017-05-26 20:00] VITALS: BP 113/61; RESP 18
[2017-05-26] MEDS: LATANOPROST 0.005% 2.5 ML OPH BOTH EYES SCH (21:14)
[2017-05-26] MEDS: FAMOTIDINE 20 MG TAB PO SCH (21:15)
[2017-05-26] MEDS: traZODone 50 MG TAB PO SCH (21:15)
[2017-05-27 02:00] VITALS: BP_SYST 116; BP_SYST 125; BP_DIAS 52; BP_DIAS 68; RESP 18
[2017-05-27 07:30] VITALS: BP 117/58; RESP 18
[2017-05-27] MEDS: GABAPENTIN 300 MG CAP PO SCH ×2 (09:12→20:13)
[2017-05-27] MEDS: DOCUSATE SODIUM 100 MG CAP PO SCH (09:12)
[2017-05-27] MEDS: TIMOLOL 0.5% 5 ML OPH BOTH EYES SCH (09:13)
[2017-05-27] MEDS: HYDROCHLOROTHIAZIDE 12.5 MG CAP PO SCH (09:13)
[2017-05-27] MEDS: BENAZEPRIL 10 MG TAB PO SCH (09:14)
[2017-05-27] MEDS: HYDROCODONE/APAP (5/325) TAB PO PRN ×2 (09:14→18:25)
[2017-05-27] MEDS: CHOLECALCIFEROL 1,000 UNIT TAB PO SCH (09:15)
[2017-05-27] MEDS: POLYETHYLENE GLYCOL 17 GM PACKET PO SCH ×2 (09:15→20:14)
[2017-05-27] MEDS: predniSONE 10 MG TAB PO SCH ×2 (09:15→20:13)
[2017-05-27] MEDS: FERROUS SULFATE (EC) 325 MG TAB PO SCH (09:15)
--- NOTE | 2017-05-27 10:35 | CONS ---
Date/Time of Note Date/Time of Note DATE: 05/27/17 TIME: 10:33 Consult Date/Type/Reason Admit Date/Time May 19, 2017 at 21:00 Type of Consultation: cardiology Ordering Provider: JULIÁN MYERS Subjective Doing well with rehab Objective Vital Signs Date Time Temp Pulse Resp B/P Pulse Ox O2 Delivery O2 Flow Rate FiO2 05/27/17 07:30 98.1 65 18 117/58 96 05/25/17 02:00 Room Air Intake and Output 05/26/17 05/26/17 05/27/17 15:00 23:00 07:00 Intake Total 240 ml Balance 240 ml Exam sba ambulation 135 feet Results/Medications Medications Current Medications Acetaminophen (Tylenol Tab) 650 mg Q6H PRN PO PAIN LEVEL 1-3 OR FEVER Last administered on 05/24/17 15:01; Admin Dose 650 MG; Start 05/19/17 at 23:07 Acetaminophen/ Hydrocodone Bitart ([place] (5/325)) 1 tab Q6H PRN PO PAIN LEVEL 7 -10 Last administered on 05/27/17 09:14; Admin Dose 1 TAB; Start 05/19/17 at 23:07 Gabapentin (Neurontin) 600 mg BID PO Last administered on 05/27/17 09:12; Admin Dose 600 MG; Start 05/19/17 at 23:07 Trazodone HCl (Desyrel) 50 mg QHS PO Last administered on 05/26/17 21:15; Admin Dose 50 MG; Start 05/19/17 at 23:07 Latanoprost (Xalatan) 1 drop QHS BOTH EYES Last administered on 05/26/17 21: 14; Admin Dose 1 DROP; Start 05/19/17 at 23:07 Cholecalciferol (Vitamin D) 1,000 unit DAILY PO Last administered on 09:15; Admin Dose 1,000 UNIT; Start 05/19/17 at 23:07 Morphine Sulfate (morphine) 2 mg Q2H PRN IV pain; Start 05/19/17 at 23:07 Acetaminophen/ Hydrocodone Bitart ([place] (5/325)) 1 tab Q3H PRN PO PAIN Last administered on 05/26/17 22:09; Admin Dose 1 TAB; Start 05/19/17 at 23:07 Prednisone (Prednisone) 10 mg BID PO Last administered on 05/27/17 09:15; Admin Dose 10 MG; Start 05/19/17 at 23:07 Polyethylene Glycol (Miralax) 17 gm BID PO Last administered on 05/27/17 09: 15; Admin Dose 17 GM; Start 05/19/17 at 23:07 Bisacodyl (Dulcolax) 10 mg DAILY PRN PO CONSTIPATION; Start 05/19/17 at 23:07 Ferrous Sulfate (Ferrous Sulfate (Ec)) 325 mg DAILY PO Last administered on 09:15; Admin Dose 325 MG; Start 05/20/17 at 14:00 Docusate Sodium (Colace) 100 mg DAILY PO Last administered on 05/27/17 09:12 ; Admin Dose 100 MG; Start 05/20/17 at 14:00 Benazepril HCl (Lotensin) 10 mg DAILY PO Last administered on 05/27/17 09:14 ; Admin Dose 10 MG; Start 05/22/17 at 09:00 Famotidine (Pepcid) 20 mg HS PO Last administered on 05/26/17 21:15; Admin Dose 20 MG; Start 05/22/17 at 21:00 Hydrochlorothiazide (Hydrochlorothiazide) 12.5 mg DAILY PO Last administered on 05/27/17 09:13; Admin Dose 12.5 MG; Start 05/23/17 at 14:30 Timolol Maleate (Timoptic 0.5%) 1 drop AM BOTH EYES Last administered on 09:13; Admin Dose 1 DROP; Start 05/24/17 at 09:00 Assessment/Plan Additional Assessment/Plan Rehab- Blunt head trauma with rt frontal scalp hematoma, loss of consciousness in addition to rt wrist Colles fx, s/p incision and drainage and immobilization of the wrist. Progress with rehab Rheumatoid arthritis affecting multiple joints including bilateral hands, knees and feet. Right eye blindness. Polymyalgia rheumatica. Hypertension. GEN ZAMBRANO MD May 27, 2017 10:34
--- NOTE | 2017-05-27 11:39 | CONS ---
Date/Time of Note Date/Time of Note DATE: 05/27/17 TIME: 11:37 Assessment/Plan Assessment/Plan Additional Assessment/Plan 1. Preoperative evaluation prior to the patient undergoing a wrist open reduction, internal fixation with normal EF by echo, negative troponins, intermediate clinical predictors, going for moderate-risk surgery. Thus, at this time, the patient is without cardiac contraindication to proceeding to the OR on current medications at moderate risk.- Now post-op s/p open I+D/reduction - did well postop, in rehab now - no CP - doing well - happy with care - increase ambulation now- BETTER overall. In good spirits. Resume rehab - MUCH BETTER NOW. 2. Abnormal electrocardiogram with right bundle branch block- no intervention planned. BETTER FLUID STATUS. 3. PACs, frequent, and question SVT - now in sinus 4. Hypertension-currently well controlled - better now - with trace LE edema - resume small dose diuretic now. BETTER today - con't gentle diuretic Rx - LE elevation advised. 5. Status post fall, mechanical by description. 6. Rheumatoid arthritis, on baseline steroids, now on stress dose steroids. 7. Polymyalgia rheumatica. 8. Macular degeneration. 9. Anemia. Consultation Date/Type/Reason Admit Date/Time May 19, 2017 at 21:00 Type of Consultation: cardiology Referring Provider: JULIÁN MYERS 24 HR Interval Summary Free Text/Dictation NO acute events - BP in good range - no CP now - con't to adjust Rx as needed. ROS: No fever, no chills, no nausea, no vomiting, no diarrhea/constipation No recent weight changes No chest pain, no PND, no orthopnea No dizziness, blurred vision No thirst, no heat or cold intolerance Exam/Review of Systems Vital Signs Vitals Vital Signs Date Time Temp Pulse Resp B/P Pulse Ox O2 Delivery O2 Flow Rate FiO2 05/27/17 07:30 98.1 65 18 117/58 96 05/25/17 02:00 Room Air Intake and Output 05/26/17 05/26/17 05/27/17 15:00 23:00 07:00 Intake Total 240 ml Balance 240 ml Exam General: WN/WD/NAD, AOx 3 HEENT: Unicetric/atraumatic/EOMI (follows commands) NECK: JVD elevated, no thyromegaly Lymph: no lymphadenopathy HEART: regular with no S3, II/ systolic murmur at apex LUNGS: Coarse sounds ABD: soft, NT, ND, +BS : Intact Neuro: non focal SKIN: chronic changes EXT: trace edema Medications Medications Current Medications Acetaminophen (Tylenol Tab) 650 mg Q6H PRN PO PAIN LEVEL 1-3 OR FEVER Last administered on 05/24/17 15:01; Admin Dose 650 MG; Start 05/19/17 at 23:07 Acetaminophen/ Hydrocodone Bitart ([place] (5/325)) 1 tab Q6H PRN PO PAIN LEVEL 7 -10 Last administered on 05/27/17 09:14; Admin Dose 1 TAB; Start 05/19/17 at 23:07 Gabapentin (Neurontin) 600 mg BID PO Last administered on 05/27/17 09:12; Admin Dose 600 MG; Start 05/19/17 at 23:07 Trazodone HCl (Desyrel) 50 mg QHS PO Last administered on 05/26/17 21:15; Admin Dose 50 MG; Start 05/19/17 at 23:07 Latanoprost (Xalatan) 1 drop QHS BOTH EYES Last administered on 05/26/17 21: 14; Admin Dose 1 DROP; Start 05/19/17 at 23:07 Cholecalciferol (Vitamin D) 1,000 unit DAILY PO Last administered on 09:15; Admin Dose 1,000 UNIT; Start 05/19/17 at 23:07 Morphine Sulfate (morphine) 2 mg Q2H PRN IV pain; Start 05/19/17 at 23:07 Acetaminophen/ Hydrocodone Bitart ([place] (5/325)) 1 tab Q3H PRN PO PAIN Last administered on 05/26/17 22:09; Admin Dose 1 TAB; Start 05/19/17 at 23:07 Prednisone (Prednisone) 10 mg BID PO Last administered on 05/27/17 09:15; Admin Dose 10 MG; Start 05/19/17 at 23:07 Polyethylene Glycol (Miralax) 17 gm BID PO Last administered on 05/27/17 09: 15; Admin Dose 17 GM; Start 05/19/17 at 23:07 Bisacodyl (Dulcolax) 10 mg DAILY PRN PO CONSTIPATION; Start 05/19/17 at 23:07 Ferrous Sulfate (Ferrous Sulfate (Ec)) 325 mg DAILY PO Last administered on 09:15; Admin Dose 325 MG; Start 05/20/17 at 14:00 Docusate Sodium (Colace) 100 mg DAILY PO Last administered on 05/27/17 09:12 ; Admin Dose 100 MG; Start 05/20/17 at 14:00 Benazepril HCl (Lotensin) 10 mg DAILY PO Last administered on 05/27/17 09:14 ; Admin Dose 10 MG; Start 05/22/17 at 09:00 Famotidine (Pepcid) 20 mg HS PO Last administered on 05/26/17 21:15; Admin Dose 20 MG; Start 05/22/17 at 21:00 Hydrochlorothiazide (Hydrochlorothiazide) 12.5 mg DAILY PO Last administered on 05/27/17 09:13; Admin Dose 12.5 MG; Start 05/23/17 at 14:30 Timolol Maleate (Timoptic 0.5%) 1 drop AM BOTH EYES Last administered on 09:13; Admin Dose 1 DROP; Start 05/24/17 at 09:00 SHERIE BHANDARI MD May 27, 2017 11:39
--- NOTE | 2017-05-27 13:41 | CONS ---
Date/Time of Note Date/Time of Note DATE: 05/27/17 TIME: 13:40 Assessment/Plan Assessment/Plan Chief Complaint/Hosp Course 81-year-old female with a past medical history of hypertension, low back surgery , hiatal hernia, right eye blindness, rheumatoid arthritis of multiple joints, who sustained blunt head trauma with right frontal scalp hematoma, right wrist fracture for which she had undergone incision and drainage with manipulative reduction and immobilization of the wrist, now admitted to acute rehabilitation unit for further complex interdisciplinary physical therapy. 1. Colles' fracture of the right wrist, severely comminuted and displaced. - Status post open irrigation and debridement with manipulative reduction and immobilization of the right wrist and forearm in a short arm cast on May. -Continue as needed pain medications -PT/OT eval and treatment. 2. Polymyalgia rheumatica. -Continue steroid,PRN pain meds. 3. Amblyopia of the right eye. - Continue eyedrops - Fall precautions. 4. Anemia with iron deficiency. H&H stable. -on oral iron replacement. 5. Essential hypertension. -Continue RENAY inhibitor/HCTZ. 6. History of constipation. -Stool softeners and PRN laxatives. 7.GERD with hiatal hernia. -Pepcid HS 8. Peripheral edema. Stable. -Continue thiazide diuretics. Patient was seen in collaboration with . Problems: Consultation Date/Type/Reason Admit Date/Time May 19, 2017 at 21:00 Type of Consultation: cardiology Referring Provider: JULIÁN MYERS 24 HR Interval Summary Free Text/Dictation No acute distress. Patient doing well. Exam/Review of Systems Vital Signs Vitals Vital Signs Date Time Temp Pulse Resp B/P Pulse Ox O2 Delivery O2 Flow Rate FiO2 05/27/17 07:30 98.1 65 18 117/58 96 05/25/17 02:00 Room Air Intake and Output 05/26/17 05/26/17 05/27/17 15:00 23:00 07:00 Intake Total 240 ml Balance 240 ml Exam General: Elderly female, not in any acute distress . HEENT: Normocephalic, Atraumatic, No laceration or hematoma; Eyes: PEERL, Conjunctiva clear, Anicteric sclera Neck: Supple without any lymphadenopathy, nontender, no JVD, no carotid bruits, trachea midline, no thyromegaly Cardiac: S1, S2 auscultated, regular rhythm and rate, no mumurs or gallop Pulmonary: Normal respiratory effort. Chest clear to auscultation bilaterally, no adventitious breath sounds GI: Abdomen normal to inspection. Soft, non tender, non- distended, no masses, no rebound tenderness or guarding. Bowel sounds active on all four quadrants Genitourinary: Deferred Extremities: With trace edema Left ankle. Right arm with splint. No cyanosis/ tingling/numbness/edema undercast that can be seen. Pulses [2+] bilaterally. Full ROM on all four extremities. No focal weakness appreciated. Neurologic: Alert to person, place, time, and situation. Affect appropriate, intact sensation. Skin: Clean,dry, and intact. No ecchymosis, no rashes, or lesions Medications Medications Current Medications Acetaminophen (Tylenol Tab) 650 mg Q6H PRN PO PAIN LEVEL 1-3 OR FEVER Last administered on 05/24/17 15:01; Admin Dose 650 MG; Start 05/19/17 at 23:07 Acetaminophen/ Hydrocodone Bitart ([place] (5/325)) 1 tab Q6H PRN PO PAIN LEVEL 7 -10 Last administered on 05/27/17 09:14; Admin Dose 1 TAB; Start 05/19/17 at 23:07 Gabapentin (Neurontin) 600 mg BID PO Last administered on 05/27/17 09:12; Admin Dose 600 MG; Start 05/19/17 at 23:07 Trazodone HCl (Desyrel) 50 mg QHS PO Last administered on 05/26/17 21:15; Admin Dose 50 MG; Start 05/19/17 at 23:07 Latanoprost (Xalatan) 1 drop QHS BOTH EYES Last administered on 05/26/17 21: 14; Admin Dose 1 DROP; Start 05/19/17 at 23:07 Cholecalciferol (Vitamin D) 1,000 unit DAILY PO Last administered on 09:15; Admin Dose 1,000 UNIT; Start 05/19/17 at 23:07 Morphine Sulfate (morphine) 2 mg Q2H PRN IV pain; Start 05/19/17 at 23:07 Acetaminophen/ Hydrocodone Bitart ([place] (5/325)) 1 tab Q3H PRN PO PAIN Last administered on 05/26/17 22:09; Admin Dose 1 TAB; Start 05/19/17 at 23:07 Prednisone (Prednisone) 10 mg BID PO Last administered on 05/27/17 09:15; Admin Dose 10 MG; Start 05/19/17 at 23:07 Polyethylene Glycol (Miralax) 17 gm BID PO Last administered on 05/27/17 09: 15; Admin Dose 17 GM; Start 05/19/17 at 23:07 Bisacodyl (Dulcolax) 10 mg DAILY PRN PO CONSTIPATION; Start 05/19/17 at 23:07 Ferrous Sulfate (Ferrous Sulfate (Ec)) 325 mg DAILY PO Last administered on 09:15; Admin Dose 325 MG; Start 05/20/17 at 14:00 Docusate Sodium (Colace) 100 mg DAILY PO Last administered on 05/27/17 09:12 ; Admin Dose 100 MG; Start 05/20/17 at 14:00 Benazepril HCl (Lotensin) 10 mg DAILY PO Last administered on 05/27/17 09:14 ; Admin Dose 10 MG; Start 05/22/17 at 09:00 Famotidine (Pepcid) 20 mg HS PO Last administered on 05/26/17 21:15; Admin Dose 20 MG; Start 05/22/17 at 21:00 Hydrochlorothiazide (Hydrochlorothiazide) 12.5 mg DAILY PO Last administered on 05/27/17 09:13; Admin Dose 12.5 MG; Start 05/23/17 at 14:30 Timolol Maleate (Timoptic 0.5%) 1 drop AM BOTH EYES Last administered on 09:13; Admin Dose 1 DROP; Start 05/24/17 at 09:00 JANEL ALVAREZ NP May 27, 2017 13:41
[2017-05-27 20:00] VITALS: BP 111/54; PULSE 74; RESP 16
[2017-05-27] MEDS: FAMOTIDINE 20 MG TAB PO SCH (20:13)
[2017-05-27] MEDS: traZODone 50 MG TAB PO SCH (20:13)
[2017-05-27] MEDS: LATANOPROST 0.005% 2.5 ML OPH BOTH EYES SCH (20:14)
[2017-05-28 02:00] VITALS: BP 115/56; PULSE 70; RESP 18
[2017-05-28] MEDS: HYDROCODONE/APAP (5/325) TAB PO PRN ×4 (05:52→22:24)
[2017-05-28 08:00] VITALS: BP 107/60; PULSE 63; RESP 21
[2017-05-28] MEDS: BENAZEPRIL 10 MG TAB PO SCH (09:00)
[2017-05-28] MEDS: DOCUSATE SODIUM 100 MG CAP PO SCH (09:00)
[2017-05-28] MEDS: POLYETHYLENE GLYCOL 17 GM PACKET PO SCH ×2 (09:00→20:33)
[2017-05-28] MEDS: HYDROCHLOROTHIAZIDE 12.5 MG CAP PO SCH (09:00)
[2017-05-28] MEDS: TIMOLOL 0.5% 5 ML OPH BOTH EYES SCH (09:07)
[2017-05-28] MEDS: CHOLECALCIFEROL 1,000 UNIT TAB PO SCH (09:07)
[2017-05-28] MEDS: GABAPENTIN 300 MG CAP PO SCH ×2 (09:08→20:32)
[2017-05-28] MEDS: predniSONE 10 MG TAB PO SCH ×2 (09:08→20:32)
[2017-05-28] MEDS: FERROUS SULFATE (EC) 325 MG TAB PO SCH (09:08)
--- NOTE | 2017-05-28 09:10 | CONS ---
Date/Time of Note Date/Time of Note DATE: 05/28/17 TIME: 09:09 Assessment/Plan Assessment/Plan Chief Complaint/Hosp Course 81-year-old female with a past medical history of hypertension, low back surgery , hiatal hernia, right eye blindness, rheumatoid arthritis of multiple joints, who sustained blunt head trauma with right frontal scalp hematoma, right wrist fracture for which she had undergone incision and drainage with manipulative reduction and immobilization of the wrist, now admitted to acute rehabilitation unit for further complex interdisciplinary physical therapy. 1. Colles' fracture of the right wrist, severely comminuted and displaced. - Status post open irrigation and debridement with manipulative reduction and immobilization of the right wrist and forearm in a short arm cast on May. -Continue as needed pain medications -PT/OT eval and treatment. 2. Polymyalgia rheumatica. -Continue steroid,PRN pain meds. 3. Amblyopia of the right eye. - Continue eyedrops - Fall precautions. 4. Anemia with iron deficiency. H&H stable. -on oral iron replacement. 5. Essential hypertension. -Continue RENAY inhibitor/HCTZ. 6. History of constipation. -Stool softeners and PRN laxatives. 7.GERD with hiatal hernia. -Pepcid HS 8. Peripheral edema. Stable. -Continue thiazide diuretics. Patient was seen in collaboration with . Problems: Consultation Date/Type/Reason Admit Date/Time May 19, 2017 at 21:00 Type of Consultation: cardiology Referring Provider: JULIÁN MYERS 24 HR Interval Summary Free Text/Dictation No acute distress. Exam/Review of Systems Vital Signs Vitals Vital Signs Date Time Temp Pulse Resp B/P Pulse Ox O2 Delivery O2 Flow Rate FiO2 05/28/17 02:00 97.8 70 18 115/56 100 Room Air Intake and Output 05/27/17 05/27/17 05/28/17 15:00 23:00 07:00 Intake Total 800 ml 300 ml Balance 800 ml 300 ml Exam General: Elderly female, not in any acute distress . HEENT: Normocephalic, Atraumatic, No laceration or hematoma; Eyes: PEERL, Conjunctiva clear, Anicteric sclera Neck: Supple without any lymphadenopathy, nontender, no JVD, no carotid bruits, trachea midline, no thyromegaly Cardiac: S1, S2 auscultated, regular rhythm and rate, no mumurs or gallop Pulmonary: Normal respiratory effort. Chest clear to auscultation bilaterally, no adventitious breath sounds GI: Abdomen normal to inspection. Soft, non tender, non- distended, no masses, no rebound tenderness or guarding. Bowel sounds active on all four quadrants Genitourinary: Deferred Extremities: With trace edema Left ankle. Right arm with splint. No cyanosis/ tingling/numbness/edema undercast that can be seen. Pulses [2+] bilaterally. Full ROM on all four extremities. No focal weakness appreciated. Neurologic: Alert to person, place, time, and situation. Affect appropriate, intact sensation. Skin: Clean,dry, and intact. No ecchymosis, no rashes, or lesions Medications Medications Current Medications Acetaminophen (Tylenol Tab) 650 mg Q6H PRN PO PAIN LEVEL 1-3 OR FEVER Last administered on 05/24/17 15:01; Admin Dose 650 MG; Start 05/19/17 at 23:07 Acetaminophen/ Hydrocodone Bitart ([place] (5/325)) 1 tab Q6H PRN PO PAIN LEVEL 7 -10 Last administered on 05/27/17 09:14; Admin Dose 1 TAB; Start 05/19/17 at 23:07 Gabapentin (Neurontin) 600 mg BID PO Last administered on 05/28/17 09:08; Admin Dose 600 MG; Start 05/19/17 at 23:07 Trazodone HCl (Desyrel) 50 mg QHS PO Last administered on 05/27/17 20:13; Admin Dose 50 MG; Start 05/19/17 at 23:07 Latanoprost (Xalatan) 1 drop QHS BOTH EYES Last administered on 05/27/17 20: 14; Admin Dose 1 DROP; Start 05/19/17 at 23:07 Cholecalciferol (Vitamin D) 1,000 unit DAILY PO Last administered on 09:07; Admin Dose 1,000 UNIT; Start 05/19/17 at 23:07 Morphine Sulfate (morphine) 2 mg Q2H PRN IV pain; Start 05/19/17 at 23:07 Acetaminophen/ Hydrocodone Bitart ([place] (5/325)) 1 tab Q3H PRN PO PAIN Last administered on 05/28/17 09:08; Admin Dose 1 TAB; Start 05/19/17 at 23:07 Prednisone (Prednisone) 10 mg BID PO Last administered on 05/28/17 09:08; Admin Dose 10 MG; Start 05/19/17 at 23:07 Polyethylene Glycol (Miralax) 17 gm BID PO Last administered on 05/27/17 09: 15; Admin Dose 17 GM; Start 05/19/17 at 23:07 Bisacodyl (Dulcolax) 10 mg DAILY PRN PO CONSTIPATION; Start 05/19/17 at 23:07 Ferrous Sulfate (Ferrous Sulfate (Ec)) 325 mg DAILY PO Last administered on 09:08; Admin Dose 325 MG; Start 05/20/17 at 14:00 Docusate Sodium (Colace) 100 mg DAILY PO Last administered on 05/27/17 09:12 ; Admin Dose 100 MG; Start 05/20/17 at 14:00 Benazepril HCl (Lotensin) 10 mg DAILY PO Last administered on 05/27/17 09:14 ; Admin Dose 10 MG; Start 05/22/17 at 09:00 Famotidine (Pepcid) 20 mg HS PO Last administered on 05/27/17 20:13; Admin Dose 20 MG; Start 05/22/17 at 21:00 Hydrochlorothiazide (Hydrochlorothiazide) 12.5 mg DAILY PO Last administered on 05/27/17 09:13; Admin Dose 12.5 MG; Start 05/23/17 at 14:30 Timolol Maleate (Timoptic 0.5%) 1 drop AM BOTH EYES Last administered on 09:07; Admin Dose 1 DROP; Start 05/24/17 at 09:00 JANEL ALVAREZ NP May 28, 2017 09:10
[2017-05-28 16:00] VITALS: BP 134/66; RESP 18
--- NOTE | 2017-05-28 16:04 | CONS ---
Date/Time of Note Date/Time of Note DATE: 05/28/17 TIME: 16:01 Assessment/Plan Assessment/Plan Chief Complaint/Hosp Course IMPRESSION: 1. Preoperative evaluation prior to the patient undergoing a wrist open reduction, internal fixation with normal EF by echo, negative troponins, intermediate clinical predictors, going for moderate-risk surgery. Thus, at this time, the patient is without cardiac contraindication to proceeding to the OR on current medications at moderate risk.- Now post-op s/p open I+D/reduction 2. Abnormal electrocardiogram with right bundle branch block. 3. PACs, frequent, and question SVT-no recurrence while on Tele 4. Hypertension-remains labile 5. Status post fall, mechanical by description. 6. Rheumatoid arthritis, on baseline steroids, now on stress dose steroids. 7. Polymyalgia rheumatica. 8. Macular degeneration. 9. Anemia. Recc: -Continue steroids -Pain control -Continue ACEI -PT/OT Problems: Consultation Date/Type/Reason Admit Date/Time May 19, 2017 at 21:00 Initial Consult Date 05/19/2017 Type of Consultation: cardiology Reason for Consultation Pre-op/HTN Referring Provider: JULIÁN MYERS Exam/Review of Systems Vital Signs Vitals Vital Signs Date Time Temp Pulse Resp B/P Pulse Ox O2 Delivery O2 Flow Rate FiO2 05/28/17 02:00 97.8 70 18 115/56 100 Room Air Intake and Output 05/27/17 05/27/17 05/28/17 15:00 23:00 07:00 Intake Total 800 ml 300 ml Balance 800 ml 300 ml Exam Review of Systems: CONSTITUTIONAL: No fevers, chills. PULMONARY: No sob CARDIOVASCULAR: No chest pain/palpitations GASTROINTESTINAL: No nausea/vomiting. GENITOURINARY: No hematuria/dysuria. MUSCULOSKELETAL: No myagias/arthalgias. PSYCHIATRIC: The patient denies depression. NEUROLOGIC: No weakness Constitutional: alert, oriented Psych: no complaints Head: normocephalic ENMT: mucosa pink and moist Neck: jvd (9cm water), supple Respiratory: diminished breath sounds Cardiovascular: regular rate and rhythm Gastrointestinal: non-tender, soft Musculoskeletal: muscle tone (normasl) Extremities: edema (none) Neurological: other Medications Medications Current Medications Acetaminophen (Tylenol Tab) 650 mg Q6H PRN PO PAIN LEVEL 1-3 OR FEVER Last administered on 05/24/17 15:01; Admin Dose 650 MG; Start 05/19/17 at 23:07 Acetaminophen/ Hydrocodone Bitart ([place] (5/325)) 1 tab Q6H PRN PO PAIN LEVEL 7 -10 Last administered on 05/27/17 09:14; Admin Dose 1 TAB; Start 05/19/17 at 23:07 Gabapentin (Neurontin) 600 mg BID PO Last administered on 05/28/17 09:08; Admin Dose 600 MG; Start 05/19/17 at 23:07 Trazodone HCl (Desyrel) 50 mg QHS PO Last administered on 05/27/17 20:13; Admin Dose 50 MG; Start 05/19/17 at 23:07 Latanoprost (Xalatan) 1 drop QHS BOTH EYES Last administered on 05/27/17 20: 14; Admin Dose 1 DROP; Start 05/19/17 at 23:07 Cholecalciferol (Vitamin D) 1,000 unit DAILY PO Last administered on 09:07; Admin Dose 1,000 UNIT; Start 05/19/17 at 23:07 Morphine Sulfate (morphine) 2 mg Q2H PRN IV pain; Start 05/19/17 at 23:07 Acetaminophen/ Hydrocodone Bitart ([place] (5/325)) 1 tab Q3H PRN PO PAIN Last administered on 05/28/17 09:08; Admin Dose 1 TAB; Start 05/19/17 at 23:07 Prednisone (Prednisone) 10 mg BID PO Last administered on 05/28/17 09:08; Admin Dose 10 MG; Start 05/19/17 at 23:07 Polyethylene Glycol (Miralax) 17 gm BID PO Last administered on 05/27/17 09: 15; Admin Dose 17 GM; Start 05/19/17 at 23:07 Bisacodyl (Dulcolax) 10 mg DAILY PRN PO CONSTIPATION; Start 05/19/17 at 23:07 Ferrous Sulfate (Ferrous Sulfate (Ec)) 325 mg DAILY PO Last administered on 09:08; Admin Dose 325 MG; Start 05/20/17 at 14:00 Docusate Sodium (Colace) 100 mg DAILY PO Last administered on 05/27/17 09:12 ; Admin Dose 100 MG; Start 05/20/17 at 14:00 Benazepril HCl (Lotensin) 10 mg DAILY PO Last administered on 05/27/17 09:14 ; Admin Dose 10 MG; Start 05/22/17 at 09:00 Famotidine (Pepcid) 20 mg HS PO Last administered on 05/27/17 20:13; Admin Dose 20 MG; Start 05/22/17 at 21:00 Hydrochlorothiazide (Hydrochlorothiazide) 12.5 mg DAILY PO Last administered on 05/27/17 09:13; Admin Dose 12.5 MG; Start 05/23/17 at 14:30 Timolol Maleate (Timoptic 0.5%) 1 drop AM BOTH EYES Last administered on 09:07; Admin Dose 1 DROP; Start 05/24/17 at 09:00 MICH WOODALL May 28, 2017 16:04
[2017-05-28 20:00] VITALS: BP 114/63; RESP 18
[2017-05-28] MEDS: FAMOTIDINE 20 MG TAB PO SCH (20:32)
[2017-05-28] MEDS: traZODone 50 MG TAB PO SCH (20:32)
[2017-05-28] MEDS: LATANOPROST 0.005% 2.5 ML OPH BOTH EYES SCH (20:32)
[2017-05-29 02:16] VITALS: BP 120/62; RESP 18
--- NOTE | 2017-05-29 03:22 | PN ---
DATE: 05/28/2017 PSYCHOLOGY -- INDIVIDUAL SESSION -- [id number] This is a followup on a patient that was seen last week. The patient is an 81-year-old female. The patient had a fall resulting in the breaking of her right arm and right frontal scalp hematoma. Th e patient is recovering and doing well. The patient is preparing for discharge on Friday. Patient' s mood is much better. The patient is aware of difficulty she is going to face at home. The patien t discussed a number of the emotional issues regarding what she needs to do to care for herself when she leaves the program. I worked with the patient to help her see how she has made progress, both physically and emotionally and for some of the things that she is needing to do at home, as well as planning for her long-term in 6 months from now. Dictated By: YAN MORTENSEN PHD BECK/NIKO Conf#: [id number] DID#: [id number] CC: GEN ZAMBRANO MD;*End*
[2017-05-29 07:00] VITALS: BP 136/63; RESP 18
[2017-05-29] MEDS: CHOLECALCIFEROL 1,000 UNIT TAB PO SCH (08:59)
[2017-05-29] MEDS: TIMOLOL 0.5% 5 ML OPH BOTH EYES SCH (08:59)
[2017-05-29] MEDS: DOCUSATE SODIUM 100 MG CAP PO SCH (09:00)
[2017-05-29] MEDS: predniSONE 10 MG TAB PO SCH ×2 (09:00→20:58)
[2017-05-29] MEDS: FERROUS SULFATE (EC) 325 MG TAB PO SCH (09:00)
[2017-05-29] MEDS: GABAPENTIN 300 MG CAP PO SCH ×2 (09:00→20:57)
[2017-05-29] MEDS: BENAZEPRIL 10 MG TAB PO SCH (09:00)
[2017-05-29] MEDS: HYDROCHLOROTHIAZIDE 12.5 MG CAP PO SCH (09:00)
[2017-05-29] MEDS: POLYETHYLENE GLYCOL 17 GM PACKET PO SCH ×2 (09:00→21:00)
--- NOTE | 2017-05-29 12:13 | CONS ---
Date/Time of Note Date/Time of Note DATE: 05/29/17 TIME: 12:13 Assessment/Plan Assessment/Plan Chief Complaint/Hosp Course 81-year-old female with a past medical history of hypertension, low back surgery , hiatal hernia, right eye blindness, rheumatoid arthritis of multiple joints, who sustained blunt head trauma with right frontal scalp hematoma, right wrist fracture for which she had undergone incision and drainage with manipulative reduction and immobilization of the wrist, now admitted to acute rehabilitation unit for further complex interdisciplinary physical therapy. 1. Colles' fracture of the right wrist, severely comminuted and displaced. - Status post open irrigation and debridement with manipulative reduction and immobilization of the right wrist and forearm in a short arm cast on May. -Continue as needed pain medications -PT/OT eval and treatment. 2. Polymyalgia rheumatica. -Continue steroid,PRN pain meds. 3. Amblyopia of the right eye. - Continue eyedrops - Fall precautions. 4. Anemia with iron deficiency. H&H stable. -on oral iron replacement. 5. Essential hypertension. -Continue RENAY inhibitor/HCTZ. 6. History of constipation. -Stool softeners and PRN laxatives. 7.GERD with hiatal hernia. -Pepcid HS 8. Peripheral edema. Stable. -Continue thiazide diuretics. Patient was seen in collaboration with . Problems: Consultation Date/Type/Reason Admit Date/Time May 19, 2017 at 21:00 Type of Consultation: cardiology Referring Provider: JULIÁN MYERS 24 HR Interval Summary Free Text/Dictation Patient doing well. Exam/Review of Systems Vital Signs Vitals Vital Signs Date Time Temp Pulse Resp B/P Pulse Ox O2 Delivery O2 Flow Rate FiO2 05/29/17 07:00 97.9 65 18 136/63 96 05/28/17 08:00 Room Air Intake and Output 05/28/17 05/28/17 05/29/17 15:00 23:00 07:00 Intake Total 300 ml Balance 300 ml Exam General: Elderly female, not in any acute distress . HEENT: Normocephalic, Atraumatic, No laceration or hematoma; Eyes: PEERL, Conjunctiva clear, Anicteric sclera Neck: Supple without any lymphadenopathy, nontender, no JVD, no carotid bruits, trachea midline, no thyromegaly Cardiac: S1, S2 auscultated, regular rhythm and rate, no mumurs or gallop Pulmonary: Normal respiratory effort. Chest clear to auscultation bilaterally, no adventitious breath sounds GI: Abdomen normal to inspection. Soft, non tender, non- distended, no masses, no rebound tenderness or guarding. Bowel sounds active on all four quadrants Genitourinary: Deferred Extremities: With trace edema Left ankle. Right arm with cast. No cyanosis/ tingling/numbness/edema undercast that can be seen. Pulses [2+] bilaterally. Full ROM on all four extremities. No focal weakness appreciated. Neurologic: Alert to person, place, time, and situation. Affect appropriate, intact sensation. Skin: Clean,dry, and intact. No ecchymosis, no rashes, or lesions Medications Medications Current Medications Acetaminophen (Tylenol Tab) 650 mg Q6H PRN PO PAIN LEVEL 1-3 OR FEVER Last administered on 05/24/17 15:01; Admin Dose 650 MG; Start 05/19/17 at 23:07 Acetaminophen/ Hydrocodone Bitart ([place] (5/325)) 1 tab Q6H PRN PO PAIN LEVEL 7 -10 Last administered on 05/27/17 09:14; Admin Dose 1 TAB; Start 05/19/17 at 23:07 Gabapentin (Neurontin) 600 mg BID PO Last administered on 05/29/17 09:00; Admin Dose 600 MG; Start 05/19/17 at 23:07 Trazodone HCl (Desyrel) 50 mg QHS PO Last administered on 05/28/17 20:32; Admin Dose 50 MG; Start 05/19/17 at 23:07 Latanoprost (Xalatan) 1 drop QHS BOTH EYES Last administered on 05/28/17 20: 32; Admin Dose 1 DROP; Start 05/19/17 at 23:07 Cholecalciferol (Vitamin D) 1,000 unit DAILY PO Last administered on 08:59; Admin Dose 1,000 UNIT; Start 05/19/17 at 23:07 Morphine Sulfate (morphine) 2 mg Q2H PRN IV pain; Start 05/19/17 at 23:07 Acetaminophen/ Hydrocodone Bitart ([place] (5/325)) 1 tab Q3H PRN PO PAIN Last administered on 05/28/17 22:24; Admin Dose 1 TAB; Start 05/19/17 at 23:07 Prednisone (Prednisone) 10 mg BID PO Last administered on 05/29/17 09:00; Admin Dose 10 MG; Start 05/19/17 at 23:07 Polyethylene Glycol (Miralax) 17 gm BID PO Last administered on 05/27/17 09: 15; Admin Dose 17 GM; Start 05/19/17 at 23:07 Bisacodyl (Dulcolax) 10 mg DAILY PRN PO CONSTIPATION; Start 05/19/17 at 23:07 Ferrous Sulfate (Ferrous Sulfate (Ec)) 325 mg DAILY PO Last administered on 09:00; Admin Dose 325 MG; Start 05/20/17 at 14:00 Docusate Sodium (Colace) 100 mg DAILY PO Last administered on 05/29/17 09:00 ; Admin Dose 100 MG; Start 05/20/17 at 14:00 Benazepril HCl (Lotensin) 10 mg DAILY PO Last administered on 05/29/17 09:00 ; Admin Dose 10 MG; Start 05/22/17 at 09:00 Famotidine (Pepcid) 20 mg HS PO Last administered on 05/28/17 20:32; Admin Dose 20 MG; Start 05/22/17 at 21:00 Hydrochlorothiazide (Hydrochlorothiazide) 12.5 mg DAILY PO Last administered on 05/29/17 09:00; Admin Dose 12.5 MG; Start 05/23/17 at 14:30 Timolol Maleate (Timoptic 0.5%) 1 drop AM BOTH EYES Last administered on 08:59; Admin Dose 1 DROP; Start 05/24/17 at 09:00 JANEL ALVAREZ NP May 29, 2017 12:13
--- NOTE | 2017-05-29 12:26 | CONS ---
Date/Time of Note Date/Time of Note DATE: 05/29/17 TIME: 12:26 Consult Date/Type/Reason Admit Date/Time May 19, 2017 at 21:00 Type of Consultation: cardiology Ordering Provider: JULIÁN MYERS Subjective Overall doing well Objective Supervised for activities Vital Signs Date Time Temp Pulse Resp B/P Pulse Ox O2 Delivery O2 Flow Rate FiO2 05/29/17 07:00 97.9 65 18 136/63 96 05/28/17 08:00 Room Air Intake and Output 05/28/17 05/28/17 05/29/17 14:59 22:59 06:59 Intake Total 300 ml Balance 300 ml Results/Medications Medications Current Medications Acetaminophen (Tylenol Tab) 650 mg Q6H PRN PO PAIN LEVEL 1-3 OR FEVER Last administered on 05/24/17 15:01; Admin Dose 650 MG; Start 05/19/17 at 23:07 Acetaminophen/ Hydrocodone Bitart ([place] (5/325)) 1 tab Q6H PRN PO PAIN LEVEL 7 -10 Last administered on 05/27/17 09:14; Admin Dose 1 TAB; Start 05/19/17 at 23:07 Gabapentin (Neurontin) 600 mg BID PO Last administered on 05/29/17 09:00; Admin Dose 600 MG; Start 05/19/17 at 23:07 Trazodone HCl (Desyrel) 50 mg QHS PO Last administered on 05/28/17 20:32; Admin Dose 50 MG; Start 05/19/17 at 23:07 Latanoprost (Xalatan) 1 drop QHS BOTH EYES Last administered on 05/28/17 20: 32; Admin Dose 1 DROP; Start 05/19/17 at 23:07 Cholecalciferol (Vitamin D) 1,000 unit DAILY PO Last administered on 08:59; Admin Dose 1,000 UNIT; Start 05/19/17 at 23:07 Morphine Sulfate (morphine) 2 mg Q2H PRN IV pain; Start 05/19/17 at 23:07 Acetaminophen/ Hydrocodone Bitart ([place] (5/325)) 1 tab Q3H PRN PO PAIN Last administered on 05/28/17 22:24; Admin Dose 1 TAB; Start 05/19/17 at 23:07 Prednisone (Prednisone) 10 mg BID PO Last administered on 05/29/17 09:00; Admin Dose 10 MG; Start 05/19/17 at 23:07 Polyethylene Glycol (Miralax) 17 gm BID PO Last administered on 05/27/17 09: 15; Admin Dose 17 GM; Start 05/19/17 at 23:07 Bisacodyl (Dulcolax) 10 mg DAILY PRN PO CONSTIPATION; Start 05/19/17 at 23:07 Ferrous Sulfate (Ferrous Sulfate (Ec)) 325 mg DAILY PO Last administered on 09:00; Admin Dose 325 MG; Start 05/20/17 at 14:00 Docusate Sodium (Colace) 100 mg DAILY PO Last administered on 05/29/17 09:00 ; Admin Dose 100 MG; Start 05/20/17 at 14:00 Benazepril HCl (Lotensin) 10 mg DAILY PO Last administered on 05/29/17 09:00 ; Admin Dose 10 MG; Start 05/22/17 at 09:00 Famotidine (Pepcid) 20 mg HS PO Last administered on 05/28/17 20:32; Admin Dose 20 MG; Start 05/22/17 at 21:00 Hydrochlorothiazide (Hydrochlorothiazide) 12.5 mg DAILY PO Last administered on 05/29/17 09:00; Admin Dose 12.5 MG; Start 05/23/17 at 14:30 Timolol Maleate (Timoptic 0.5%) 1 drop AM BOTH EYES Last administered on 08:59; Admin Dose 1 DROP; Start 05/24/17 at 09:00 Assessment/Plan Additional Assessment/Plan Rehab- Blunt head trauma with rt frontal scalp hematoma, loss of consciousness in addition to rt wrist Colles fx, s/p incision and drainage and immobilization of the wrist. Great progress with rehabilitative treatment program anticipate discharge tomorrow Rheumatoid arthritis affecting multiple joints including bilateral hands, knees and feet. Right eye blindness. Polymyalgia rheumatica. Hypertension. GEN ZAMBRANO MD May 29, 2017 12:26
[2017-05-29] MEDS: HYDROCODONE/APAP (5/325) TAB PO PRN ×2 (13:31→20:58)
--- NOTE | 2017-05-29 19:24 | CONS ---
Date/Time of Note Date/Time of Note DATE: 05/29/17 TIME: 19:23 Assessment/Plan Assessment/Plan Chief Complaint/Hosp Course IMPRESSION: 1. Preoperative evaluation prior to the patient undergoing a wrist open reduction, internal fixation with normal EF by echo, negative troponins, intermediate clinical predictors, going for moderate-risk surgery. Thus, at this time, the patient is without cardiac contraindication to proceeding to the OR on current medications at moderate risk.- Now post-op s/p open I+D/reduction 2. Abnormal electrocardiogram with right bundle branch block. 3. PACs, frequent, and question SVT-no recurrence while on Tele 4. Hypertension-reasonable control 5. Status post fall, mechanical by description. 6. Rheumatoid arthritis, on baseline steroids, now on stress dose steroids. 7. Polymyalgia rheumatica. 8. Macular degeneration. 9. Anemia. Recc: -Continue steroids -Pain control -Continue ACEI/HCTZ -PT/OT Problems: Consultation Date/Type/Reason Admit Date/Time May 19, 2017 at 21:00 Initial Consult Date 05/19/2017 Type of Consultation: cardiology Reason for Consultation HTN Referring Provider: JULIÁN MYERS Exam/Review of Systems Vital Signs Vitals Vital Signs Date Time Temp Pulse Resp B/P Pulse Ox O2 Delivery O2 Flow Rate FiO2 05/29/17 07:00 97.9 65 18 136/63 96 05/28/17 08:00 Room Air Intake and Output 05/28/17 05/28/17 05/29/17 15:00 23:00 07:00 Intake Total 300 ml Balance 300 ml Exam Review of Systems: CONSTITUTIONAL: No fevers, chills. PULMONARY: No sob CARDIOVASCULAR: No chest pain/palpitations GASTROINTESTINAL: No nausea/vomiting. GENITOURINARY: No hematuria/dysuria. MUSCULOSKELETAL: No myagias/arthalgias. PSYCHIATRIC: The patient denies depression. NEUROLOGIC: No weakness Constitutional: alert Psych: no complaints Head: normocephalic ENMT: mucosa pink and moist Neck: jvd (9 cm watee), supple Respiratory: clear to auscultation Cardiovascular: regular rate and rhythm Gastrointestinal: non-tender, soft Musculoskeletal: muscle tone (normaL) Extremities: edema (NONE) Neurological: other (No focal deficits) Medications Medications Current Medications Acetaminophen (Tylenol Tab) 650 mg Q6H PRN PO PAIN LEVEL 1-3 OR FEVER Last administered on 05/24/17 15:01; Admin Dose 650 MG; Start 05/19/17 at 23:07 Acetaminophen/ Hydrocodone Bitart ([place] (5/325)) 1 tab Q6H PRN PO PAIN LEVEL 7 -10 Last administered on 05/27/17 09:14; Admin Dose 1 TAB; Start 05/19/17 at 23:07 Gabapentin (Neurontin) 600 mg BID PO Last administered on 05/29/17 09:00; Admin Dose 600 MG; Start 05/19/17 at 23:07 Trazodone HCl (Desyrel) 50 mg QHS PO Last administered on 05/28/17 20:32; Admin Dose 50 MG; Start 05/19/17 at 23:07 Latanoprost (Xalatan) 1 drop QHS BOTH EYES Last administered on 05/28/17 20: 32; Admin Dose 1 DROP; Start 05/19/17 at 23:07 Cholecalciferol (Vitamin D) 1,000 unit DAILY PO Last administered on 08:59; Admin Dose 1,000 UNIT; Start 05/19/17 at 23:07 Morphine Sulfate (morphine) 2 mg Q2H PRN IV pain; Start 05/19/17 at 23:07 Acetaminophen/ Hydrocodone Bitart ([place] (5/325)) 1 tab Q3H PRN PO PAIN Last administered on 05/29/17 13:31; Admin Dose 1 TAB; Start 05/19/17 at 23:07 Prednisone (Prednisone) 10 mg BID PO Last administered on 05/29/17 09:00; Admin Dose 10 MG; Start 05/19/17 at 23:07 Polyethylene Glycol (Miralax) 17 gm BID PO Last administered on 05/27/17 09: 15; Admin Dose 17 GM; Start 05/19/17 at 23:07 Bisacodyl (Dulcolax) 10 mg DAILY PRN PO CONSTIPATION; Start 05/19/17 at 23:07 Ferrous Sulfate (Ferrous Sulfate (Ec)) 325 mg DAILY PO Last administered on 09:00; Admin Dose 325 MG; Start 05/20/17 at 14:00 Docusate Sodium (Colace) 100 mg DAILY PO Last administered on 05/29/17 09:00 ; Admin Dose 100 MG; Start 05/20/17 at 14:00 Benazepril HCl (Lotensin) 10 mg DAILY PO Last administered on 05/29/17 09:00 ; Admin Dose 10 MG; Start 05/22/17 at 09:00 Famotidine (Pepcid) 20 mg HS PO Last administered on 05/28/17 20:32; Admin Dose 20 MG; Start 05/22/17 at 21:00 Hydrochlorothiazide (Hydrochlorothiazide) 12.5 mg DAILY PO Last administered on 05/29/17 09:00; Admin Dose 12.5 MG; Start 05/23/17 at 14:30 Timolol Maleate (Timoptic 0.5%) 1 drop AM BOTH EYES Last administered on 08:59; Admin Dose 1 DROP; Start 05/24/17 at 09:00 MICH WOODALL May 29, 2017 19:24
[2017-05-29 20:00] VITALS: BP 131/62; RESP 18
[2017-05-29] MEDS: traZODone 50 MG TAB PO SCH (20:58)
[2017-05-29] MEDS: FAMOTIDINE 20 MG TAB PO SCH (20:58)
[2017-05-29] MEDS: LATANOPROST 0.005% 2.5 ML OPH BOTH EYES SCH (22:34)
[2017-05-30 02:00] VITALS: BP 128/67; RESP 18
[2017-05-30 07:30] VITALS: BP 132/62; RESP 18
[2017-05-30] MEDS: predniSONE 10 MG TAB PO SCH (08:31)
[2017-05-30] MEDS: GABAPENTIN 300 MG CAP PO SCH (08:31)
[2017-05-30] MEDS: CHOLECALCIFEROL 1,000 UNIT TAB PO SCH (08:32)
[2017-05-30] MEDS: DOCUSATE SODIUM 100 MG CAP PO SCH (08:32)
[2017-05-30] MEDS: HYDROCHLOROTHIAZIDE 12.5 MG CAP PO SCH (08:32)
[2017-05-30] MEDS: BENAZEPRIL 10 MG TAB PO SCH (08:32)
[2017-05-30] MEDS: HYDROCODONE/APAP (5/325) TAB PO PRN ×2 (08:32→13:21)
[2017-05-30] MEDS: FERROUS SULFATE (EC) 325 MG TAB PO SCH (08:32)
[2017-05-30] MEDS: TIMOLOL 0.5% 5 ML OPH BOTH EYES SCH (08:33)
[2017-05-30] MEDS: POLYETHYLENE GLYCOL 17 GM PACKET PO SCH (09:00)
--- NOTE | 2017-05-30 11:29 | DS ---
Date/Time of Note Date/Time of Note DATE: 05/30/17 TIME: 11:28 Discharge Summary Admission/Discharge Info Admit Date/Time May 19, 2017 at 21:00 Discharge Date/Time Discharge Diagnosis 1. Blunt head trauma with right frontal scalp hematoma, loss of consciousness, right wrist Colles fracture, status post incision and drainage and immobilization of the wrist. 2 Rheumatoid arthritis affecting multiple joints including bilateral hands, knees and feet. 3. Right eye blindness. 4. Polymyalgia rheumatica. 5. Hypertension. 6. Improvements in self-care and mobility. Patient Condition: Good Hospital Course Patient admitted for comprehensive interdisciplinary acute rehab. She made excellent functional gains during the course of the stay. She progressed from an initial moderate to maximal assist for self-care mobility tasks and progressed to the point of supervised to modified independent for all areas of self-care and mobility including ambulating over 150 feet. Patient is being discharged home with recommendation of home health physical therapy and Occupational Therapy follow-up. The discharge medications are per the medication reconciliation sheet. She will follow up with her limnologist and orthopedic surgery upon discharge Home Meds Reported Medications [Calcium] No Conflict Check, 1 TAB PO DAILY 05/15/17 Cholecalciferol* (Vitamin D3*) 1,000 Unit Tablet, 1000 UNIT PO DAILY, TAB 10/01/16 Ascorbic Acid* (Vitamin C*) 500 Mg Capsule.sa, 500 MG PO DAILY, CAP 10/01/16 Timolol Maleate* (Timolol Maleate* Ophth) Unknown Strength Opht, 1 DROP BOTH EYES BID, #1 EA 10/01/16 Bimatoprost* ([place]um[place]*) 0.01%-2.5 Ml Opht Drops, 1 DROP BOTH EYES HS, EA 10/01/16 Trazodone Hcl* (Trazodone Hcl*) 50 Mg Tablet, 50 MG PO QHS, #30 TAB 10/01/16 Multivit-Min/FA/Lutein/Zeaxant (Icaps Mv Tablet) 1 Each Tablet., 1 EACH PO DAILY 10/01/16 Prednisone* (Prednisone*) 1 Mg Tablet, 2 MG PO BID, TAB 10/01/16 Gabapentin* (Neurontin*) 300 Mg Capsule, 600 MG PO BID 11/07/11 Primary Care Provider GEN Zepeda MD May 30, 2017 11:29
--- NOTE | 2017-05-30 13:10 | CONS ---
Date/Time of Note Date/Time of Note DATE: 05/30/17 TIME: 13:09 Assessment/Plan Assessment/Plan Chief Complaint/Hosp Course IMPRESSION: 1. Preoperative evaluation prior to the patient undergoing a wrist open reduction, internal fixation with normal EF by echo, negative troponins, intermediate clinical predictors, going for moderate-risk surgery. Thus, at this time, the patient is without cardiac contraindication to proceeding to the OR on current medications at moderate risk.- Now post-op s/p open I+D/reduction 2. Abnormal electrocardiogram with right bundle branch block. 3. PACs, frequent, and question SVT-no recurrence while on Tele 4. Hypertension-reasonable control 5. Status post fall, mechanical by description. 6. Rheumatoid arthritis, on baseline steroids, now on stress dose steroids. 7. Polymyalgia rheumatica. 8. Macular degeneration. 9. Anemia. Recc: -Continue steroids -Pain control -Continue ACEI/HCTZ -PT/OT -D/C planning today Problems: Consultation Date/Type/Reason Admit Date/Time May 19, 2017 at 21:00 Initial Consult Date 05/19/2017 Type of Consultation: cardiology Reason for Consultation HTN Referring Provider: JULIÁN MYERS Exam/Review of Systems Vital Signs Vitals Vital Signs Date Time Temp Pulse Resp B/P Pulse Ox O2 Delivery O2 Flow Rate FiO2 05/30/17 07:30 98.5 63 18 132/62 99 05/28/17 08:00 Room Air Intake and Output 05/29/17 05/29/17 05/30/17 15:00 23:00 07:00 Intake Total 2750 ml 1540 ml Output Total 1200 ml Balance 1550 ml 1540 ml Exam Review of Systems: CONSTITUTIONAL: No fevers, chills. PULMONARY: No sob CARDIOVASCULAR: No chest pain/palpitations GASTROINTESTINAL: No nausea/vomiting. GENITOURINARY: No hematuria/dysuria. MUSCULOSKELETAL: No myagias/arthalgias. PSYCHIATRIC: The patient denies depression. NEUROLOGIC: No weakness Constitutional: alert, oriented Psych: no complaints Head: normocephalic ENMT: mucosa pink and moist Neck: jvd (9 cm water), supple Respiratory: diminished breath sounds (at bases/B) Cardiovascular: regular rate and rhythm Gastrointestinal: non-tender, soft Musculoskeletal: muscle tone (normal) Extremities: edema (none) Neurological: other (No focal deficits) Medications Medications Current Medications Acetaminophen (Tylenol Tab) 650 mg Q6H PRN PO PAIN LEVEL 1-3 OR FEVER Last administered on 05/24/17 15:01; Admin Dose 650 MG; Start 05/19/17 at 23:07 Acetaminophen/ Hydrocodone Bitart ([place] (5/325)) 1 tab Q6H PRN PO PAIN LEVEL 7 -10 Last administered on 05/30/17 08:32; Admin Dose 1 TAB; Start 05/19/17 at 23:07 Gabapentin (Neurontin) 600 mg BID PO Last administered on 05/30/17 08:31; Admin Dose 600 MG; Start 05/19/17 at 23:07 Trazodone HCl (Desyrel) 50 mg QHS PO Last administered on 05/29/17 20:58; Admin Dose 50 MG; Start 05/19/17 at 23:07 Latanoprost (Xalatan) 1 drop QHS BOTH EYES Last administered on 05/29/17 22: 34; Admin Dose 1 DROP; Start 05/19/17 at 23:07 Cholecalciferol (Vitamin D) 1,000 unit DAILY PO Last administered on 08:32; Admin Dose 1,000 UNIT; Start 05/19/17 at 23:07 Morphine Sulfate (morphine) 2 mg Q2H PRN IV pain; Start 05/19/17 at 23:07 Acetaminophen/ Hydrocodone Bitart ([place] (5/325)) 1 tab Q3H PRN PO PAIN Last administered on 05/29/17 20:58; Admin Dose 1 TAB; Start 05/19/17 at 23:07 Prednisone (Prednisone) 10 mg BID PO Last administered on 05/30/17 08:31; Admin Dose 10 MG; Start 05/19/17 at 23:07 Polyethylene Glycol (Miralax) 17 gm BID PO Last administered on 05/27/17 09: 15; Admin Dose 17 GM; Start 05/19/17 at 23:07 Bisacodyl (Dulcolax) 10 mg DAILY PRN PO CONSTIPATION; Start 05/19/17 at 23:07 Ferrous Sulfate (Ferrous Sulfate (Ec)) 325 mg DAILY PO Last administered on 08:32; Admin Dose 325 MG; Start 05/20/17 at 14:00 Docusate Sodium (Colace) 100 mg DAILY PO Last administered on 05/30/17 08:32 ; Admin Dose 100 MG; Start 05/20/17 at 14:00 Benazepril HCl (Lotensin) 10 mg DAILY PO Last administered on 05/30/17 08:32 ; Admin Dose 10 MG; Start 05/22/17 at 09:00 Famotidine (Pepcid) 20 mg HS PO Last administered on 05/29/17 20:58; Admin Dose 20 MG; Start 05/22/17 at 21:00 Hydrochlorothiazide (Hydrochlorothiazide) 12.5 mg DAILY PO Last administered on 05/30/17 08:32; Admin Dose 12.5 MG; Start 05/23/17 at 14:30 Timolol Maleate (Timoptic 0.5%) 1 drop AM BOTH EYES Last administered on 08:33; Admin Dose 1 DROP; Start 05/24/17 at 09:00 MICH WOODALL 17, 2017 13:10
--- NOTE | 2017-05-30 13:38 | CONS ---
Date/Time of Note Date/Time of Note DATE: 05/30/17 TIME: 13:29 Assessment/Plan Assessment/Plan Chief Complaint/Hosp Course 81-year-old female with a past medical history of hypertension, low back surgery , hiatal hernia, right eye blindness, rheumatoid arthritis of multiple joints, who sustained blunt head trauma with right frontal scalp hematoma, right wrist fracture for which she had undergone incision and drainage with manipulative reduction and immobilization of the wrist, now admitted to acute rehabilitation unit for further complex interdisciplinary physical therapy. 1. Colles' fracture of the right wrist, severely comminuted and displaced. - Status post open irrigation and debridement with manipulative reduction and immobilization of the right wrist and forearm in a short arm cast on May. -Continue as needed pain medications -PT/OT eval and treatment. 2. Polymyalgia rheumatica. -Continue steroid,PRN pain meds. 3. Amblyopia of the right eye. - Continue eyedrops - Fall precautions. 4. Anemia with iron deficiency. H&H stable. -on oral iron replacement. 5. Essential hypertension. -Continue RENAY inhibitor/HCTZ. 6. History of constipation. -Stool softeners and PRN laxatives. 7.GERD with hiatal hernia. -Pepcid HS 8. Peripheral edema. Stable. -Continue thiazide diuretics. Agree with discharge plan. Patient to follow-up with orthopedic surgery next week. Patient was seen in collaboration with . Problems: Consultation Date/Type/Reason Admit Date/Time May 19, 2017 at 21:00 Type of Consultation: cardiology Referring Provider: JULIÁN MYERS 24 HR Interval Summary Free Text/Dictation Overall, patient doing well. She is for discharge home today. Exam/Review of Systems Vital Signs Vitals Vital Signs Date Time Temp Pulse Resp B/P Pulse Ox O2 Delivery O2 Flow Rate FiO2 05/30/17 07:30 98.5 63 18 132/62 99 05/28/17 08:00 Room Air Intake and Output 05/29/17 05/29/17 05/30/17 14:59 22:59 06:59 Intake Total 2750 ml 1540 ml Output Total 1200 ml Balance 1550 ml 1540 ml Exam General: Elderly female, not in any acute distress . HEENT: Normocephalic, Atraumatic, No laceration or hematoma; Eyes: PEERL, Conjunctiva clear, Anicteric sclera Neck: Supple without any lymphadenopathy, nontender, no JVD, no carotid bruits, trachea midline, no thyromegaly Cardiac: S1, S2 auscultated, regular rhythm and rate, no mumurs or gallop Pulmonary: Normal respiratory effort. Chest clear to auscultation bilaterally, no adventitious breath sounds GI: Abdomen normal to inspection. Soft, non tender, non- distended, no masses, no rebound tenderness or guarding. Bowel sounds active on all four quadrants Genitourinary: Deferred Extremities: With trace edema Left ankle. Right arm with cast. No cyanosis/ tingling/numbness/edema undercast that can be seen. Pulses [2+] bilaterally. Full ROM on all four extremities. No focal weakness appreciated. Neurologic: Alert to person, place, time, and situation. Affect appropriate, intact sensation. Skin: Clean,dry, and intact. No ecchymosis, no rashes, or lesions Medications Medications Current Medications Acetaminophen (Tylenol Tab) 650 mg Q6H PRN PO PAIN LEVEL 1-3 OR FEVER Last administered on 05/24/17 15:01; Admin Dose 650 MG; Start 05/19/17 at 23:07 Acetaminophen/ Hydrocodone Bitart ([place] (5/325)) 1 tab Q6H PRN PO PAIN LEVEL 7 -10 Last administered on 05/30/17 08:32; Admin Dose 1 TAB; Start 05/19/17 at 23:07 Gabapentin (Neurontin) 600 mg BID PO Last administered on 05/30/17 08:31; Admin Dose 600 MG; Start 05/19/17 at 23:07 Trazodone HCl (Desyrel) 50 mg QHS PO Last administered on 05/29/17 20:58; Admin Dose 50 MG; Start 05/19/17 at 23:07 Latanoprost (Xalatan) 1 drop QHS BOTH EYES Last administered on 05/29/17 22: 34; Admin Dose 1 DROP; Start 05/19/17 at 23:07 Cholecalciferol (Vitamin D) 1,000 unit DAILY PO Last administered on 08:32; Admin Dose 1,000 UNIT; Start 05/19/17 at 23:07 Morphine Sulfate (morphine) 2 mg Q2H PRN IV pain; Start 05/19/17 at 23:07 Acetaminophen/ Hydrocodone Bitart ([place] (5/325)) 1 tab Q3H PRN PO PAIN Last administered on 05/30/17 13:21; Admin Dose 1 TAB; Start 05/19/17 at 23:07 Prednisone (Prednisone) 10 mg BID PO Last administered on 05/30/17 08:31; Admin Dose 10 MG; Start 05/19/17 at 23:07 Polyethylene Glycol (Miralax) 17 gm BID PO Last administered on 05/27/17 09: 15; Admin Dose 17 GM; Start 05/19/17 at 23:07 Bisacodyl (Dulcolax) 10 mg DAILY PRN PO CONSTIPATION; Start 05/19/17 at 23:07 Ferrous Sulfate (Ferrous Sulfate (Ec)) 325 mg DAILY PO Last administered on 08:32; Admin Dose 325 MG; Start 05/20/17 at 14:00 Docusate Sodium (Colace) 100 mg DAILY PO Last administered on 05/30/17 08:32 ; Admin Dose 100 MG; Start 05/20/17 at 14:00 Benazepril HCl (Lotensin) 10 mg DAILY PO Last administered on 05/30/17 08:32 ; Admin Dose 10 MG; Start 05/22/17 at 09:00 Famotidine (Pepcid) 20 mg HS PO Last administered on 05/29/17 20:58; Admin Dose 20 MG; Start 05/22/17 at 21:00 Hydrochlorothiazide (Hydrochlorothiazide) 12.5 mg DAILY PO Last administered on 05/30/17 08:32; Admin Dose 12.5 MG; Start 05/23/17 at 14:30 Timolol Maleate (Timoptic 0.5%) 1 drop AM BOTH EYES Last administered on 08:33; Admin Dose 1 DROP; Start 05/24/17 at 09:00 JANEL ALVAREZ NP May 30, 2017 13:38
[2017-05-30 14:00] VITALS: BP 105/54; RESP 18
== END 2017-05-30 16:45 | disposition home health service (06) | DRG 561 ==
LOC: VRC 21:00
PROVIDERS: ADMIT Physical Medicine & Rehabilitation; ATTEND Internal Medicine Pulmonary Disease
PROC: F07Z5ZZ Bed Mobility Treatment (ICD-10-PCS; principal; 2017-05-19)
PROC: F08Z2ZZ Grooming/Personal Hygiene Treatment (ICD-10-PCS; 2017-05-19)
PROC: F06Z6ZZ Communicative/Cognitive Integration Skills Treatment (ICD-10-PCS; 2017-05-19)
DX: S52.531D Colles' fracture of right radius, subsequent encounter for closed fracture with routine healing (principal); M06.9 Rheumatoid arthritis, unspecified; I10 Essential (primary) hypertension; S00.03XD Contusion of scalp, subsequent encounter; S06.9X9D Unspecified intracranial injury with loss of consciousness of unspecified duration, subsequent encounter; H54.40 Blindness, one eye, unspecified eye; M35.3 Polymyalgia rheumatica; W18.30XD Fall on same level, unspecified, subsequent encounter; D50.9 Iron deficiency anemia, unspecified; K21.9 Gastro-esophageal reflux disease without esophagitis; R60.9 Edema, unspecified; M62.89 Other specified disorders of muscle
CPT/HCPCS: 80053; 81003; 85025; 87081; 87086; 92507; 92523; 93970; 97110; 97112; 97116; 97150; 97163; 97167; 97530; 97535; J7512; L3675